=== PATIENT | female | born 1945 | race Caucasian/White ===

== ENCOUNTER → 2016-11-11 | Outpatient (CLI) | payer MEDICARE, BC ==
[2016-11-11 09:58] LABS: Non-African American GFR(MDRD) >60 (>60 ml/min/1.73 sqM)
--- NOTE | 2016-11-11 13:15 | MR ---
MR pancreas with and without contrast history: Abnormal pancreas MRI Multiplanar multisequence and postcontrast images obtained of the pancreas following 15 cc MultiHance IV Correlation to prior pancreas MRI 11/15/2015, previous CT abdomen 06/19/2015 The large cystic foci within the liver are stable. Loss of intensity within the liver on out of phase imaging compatible with underlying fatty infiltration. Patient is post cholecystectomy. Extrarenal p kemal within the right kidney is again noted, kidneys are stable in appearance. Adrenal glands are no rmal. Spleen shows a stable appearance. Common bile duct is dilated as is the central hepatic biliary system and this could be due to postcho lecystectomy change. 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 This cysts are small, the largest measures approximately 13 to 14 mm at the level of the body po steriorly shows a cluster of grapes appearance, at the uncinate process, there is a cystic focus arsalan uring 16-17 mm which may grow slightly in the interval on T2-weighted images although there are diffe rences in technique. Pancreatic duct only measures approximately 3 to 4 mm. The pancreas does appear somewhat atrophic. No evident adenopathy. No abnormal enhancement following contrast administration. There is a scoliosis. Degenerative disc changes in the visualized spine. 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 There may be minimal interval change as described. Differential includes chronic pancreatitis.
== END | disposition home or self-care (01) ==
LOC: RADMRIMAIN 09:31
PROVIDERS: ATTEND Surgery
DX: E11.9 Type 2 diabetes mellitus without complications (principal); Z85.07 Personal history of malignant neoplasm of pancreas
CPT/HCPCS: 82565; 74183; 36415; A9577

== ENCOUNTER → 2017-02-16 | Outpatient (CLI) | payer MEDICARE, BC ==
--- NOTE | 2017-02-18 09:40 | MM ---
Reason for exam: screening (asymptomatic). Last mammogram was performed 1 year ago. History: Patient is postmenopausal and history of other cancer. Family history of breast cancer in sister at age 60 and breast cancer in aunt at age 60. Took estrogen for 20 years. Physical Findings: A clinical breast exam by your physician is recommended on an annual basis and results should be correlated with mammographic findings. MG 3D Screening Mammo W/Cad Bilateral CC and MLO view(s) were taken. Prior study comparison: February 16, 2016, bilateral MG 3d screening mammo w/cad. February 11, 2015, bilateral MG screening mammo w CAD. The breast tissue is heterogeneously dense. This may lower the sensitivity of mammography. No significant changes when compared with prior studies. ASSESSMENT: Negative, BI-RAD 1 RECOMMENDATION: Routine screening mammogram of both breasts in 1 year.
== END | disposition home or self-care (01) ==
LOC: RADMAMWWP 16:49
PROVIDERS: ATTEND Family Medicine
DX: Z12.31 Encounter for screening mammogram for malignant neoplasm of breast (principal)
CPT/HCPCS: 77063; G0202

== ENCOUNTER 2017-10-25 08:10 | Day surgery (SDC) | payer MEDICARE, BC ==
[2017-10-19 16:07] VITALS: BMI 25.8
[~2017-10-25 08:10] MED LIST: LACTATED RINGERS 1,000 ML IV SCH
[2017-10-25 08:35] VITALS: RESP 16; TEMP 98.4
[2017-10-25 08:46] LABS: Glucose,Whole Blood 115 mg/dL (75-99)
[2017-10-25] MEDS ORDERED: PROPOFOL 10 MG/ML 20 ML VIAL IV ONE (08:57)
[2017-10-25] MEDS ORDERED: LIDOCAINE 1% INJ 10MG/ML (20 ML MDV) ONE (08:57)
--- NOTE | 2017-10-25 09:38 | P.PCN ---
Date of Procedure: 10/25/17 Procedure(s) Performed: PREOPERATIVE DIAGNOSIS: Epigastric pain, screening POSTOPERATIVE DIAGNOSIS: Small gastric nodule, gastric polyps, mild gastritis, small hiatal hernia, diverticulosis PROCEDURE: 1. EGD with biopsy 2. Colonoscopy ANESTHESIA: MAC SURGEON: Christos Izquierdo M.D. SPECIMENS: Antrum, gastric polyp ENDOSCOPIC PROCEDURE: The patient was on the endoscopy table in the left decubitus position. The Olympus gastroscope was inserted into the oropharynx and passed under direct visualization to the region of the third portion of the duodenum. From that point the scope was slowly withdrawn inspecting all surfaces carefully. There were no neoplastic inflammatory or polypoid lesions throughout the duodenum. The pylorus was widely patent. The stomach was carefully inspected. There was a small nodule in the antrum that was present previously. This appeared the same size or possibly even smaller. This has been biopsied on numerous occasions and a biopsy today was not felt to be required. I did take a biopsy of the antrum. Patient had a few small gastric polyps one of which was removed. These were all less than 8 mm in size. Retroflexion revealed a small to medium sized hiatal hernia with the GE junction present 2 cm above the diaphragmatic hiatus. The esophagus was then carefully examined. There were no neoplastic inflammatory or polypoid lesions throughout the visualized esophagus. The patient was kept on the endoscopy table in the left decubitus position. The Olympus colonoscope was inserted into the anus and passed under direct visualization to the base of the cecum. The appendiceal orifice was visualized. From that point the scope was slowly withdrawn inspecting all surfaces carefully. There were no neoplastic inflammatory or polypoid lesions throughout the cecum, ascending, transverse, descending, sigmoid and rectum. There was tortuosity and diverticulosis noted throughout the sigmoid colon. Digital rectal examination was normal. The patient was taken to the recovery room in stable condition per anesthesia guidelines. RECOMMENDATIONS: Await biopsy results. Continue antiacids.
[2017-10-25 09:53] VITALS: BP 135/51; PULSE 70
== END 2017-10-25 10:33 | disposition home or self-care (01) ==
LOC: ORWHC2ENDO 08:10
PROVIDERS: ATTEND Surgery
DX: Z12.11 Encounter for screening for malignant neoplasm of colon (principal); K29.50 Unspecified chronic gastritis without bleeding; K31.7 Polyp of stomach and duodenum; K31.89 Other diseases of stomach and duodenum; K44.9 Diaphragmatic hernia without obstruction or gangrene; K57.30 Diverticulosis of large intestine without perforation or abscess without bleeding; Q43.8 Other specified congenital malformations of intestine; K86.2 Cyst of pancreas; K21.9 Gastro-esophageal reflux disease without esophagitis; E11.9 Type 2 diabetes mellitus without complications; E78.2 Mixed hyperlipidemia; F32.9 Major depressive disorder, single episode, unspecified; M81.0 Age-related osteoporosis without current pathological fracture; I10 Essential (primary) hypertension; M19.90 Unspecified osteoarthritis, unspecified site; Z79.84 Long term (current) use of oral hypoglycemic drugs; Z79.82 Long term (current) use of aspirin; Z79.899 Other long term (current) drug therapy; Z85.828 Personal history of other malignant neoplasm of skin; Z87.442 Personal history of urinary calculi; Z88.5 Allergy status to narcotic agent; Z88.6 Allergy status to analgesic agent
CPT/HCPCS: 88305; 43239; J2001; J2704; G0121; 45378

== ENCOUNTER → 2017-11-14 | Outpatient (CLI) | payer MEDICARE, BC ==
--- NOTE | 2017-11-14 13:57 | MR ---
MR pancreas with and without contrast HISTORY: Pancreatic cysts, previous abnormal MRI pancreas TECHNIQUE: multiplanar multisequence and postcontrast images obtained through the abdomen following 7 cc Gadavist IV. Exam is correlated to prior MR pancreas 11/11/2016 Cystic foci within the liver are stable. Multiple cystic foci within the pancreas are also showing si milar appearance. Within the body the pancreas there is a focus which may has grown slightly, approxi mately 1 to 2 mm in greatest dimension although there are differences in technique. No evident nodula rity or enhancement. There is no evident adenopathy. No other significant interval change. Retroaortic left renal vein is noted incidentally. Extrarenal pelves noted right greater than left wi thin the kidneys. Patient is post cholecystectomy. Possible underlying hepatic steatosis. Adrenal gla nds and spleen are stable. Aorta is not aneurysmal. No retroperitoneal adenopathy. There is an underl samantha scoliosis. No evident pleural effusion. IMPRESSION: Findings are similar to prior exam as described.
== END | disposition home or self-care (01) ==
LOC: RADMRIMAIN 11:13
PROVIDERS: ATTEND Surgery
DX: K86.2 Cyst of pancreas (principal)
CPT/HCPCS: 82565; 74183; A9581

== ENCOUNTER → 2018-02-17 | Outpatient (CLI) | payer MEDICARE, BC ==
--- NOTE | 2018-02-20 09:16 | MM ---
Reason for exam: screening (asymptomatic). Last mammogram was performed 1 year ago. History: Patient is postmenopausal and history of other cancer. Family history of breast cancer in sister at age 60 and breast cancer in aunt at age 60. Took estrogen for 20 years. Physical Findings: A clinical breast exam by your physician is recommended on an annual basis and results should be correlated with mammographic findings. MG 3D Screening Mammo W/Cad Bilateral CC and MLO view(s) were taken. Prior study comparison: February 16, 2017, bilateral MG 3d screening mammo w/cad. February 16, 2016, bilateral MG 3d screening mammo w/cad. The breast tissue is heterogeneously dense. This may lower the sensitivity of mammography. There is no discrete abnormality. No significant changes when compared with prior studies. ASSESSMENT: Negative, BI-RAD 1 RECOMMENDATION: Routine screening mammogram of both breasts in 1 year.
== END | disposition home or self-care (01) ==
LOC: RADMAMWWP 11:10
PROVIDERS: ATTEND Family Medicine
DX: Z12.31 Encounter for screening mammogram for malignant neoplasm of breast (principal)
CPT/HCPCS: 77063; 77067

== ENCOUNTER 2018-09-22 08:13 | Emergency (ER) | payer MEDICARE, BC ==
[2018-09-22] MEDS ORDERED: diphenhydrAMINE 50 MG/ML 1 ML VIAL IVP STA (08:32)
[2018-09-22] MEDS ORDERED: SODIUM CHLORIDE 0.9% 1,000 ML IV STA (08:32)
[2018-09-22] MEDS ORDERED: MECLIZINE 12.5 MG TAB PO STA (08:32)
--- NOTE | 2018-09-22 08:37 | ED ---
Dizziness HPI - General Chief Complaint: Dizziness Stated Complaint: Vomiting Time Seen by Provider: 09/22/18 08:15 Source: patient, EMS, RN notes reviewed, old records reviewed Mode of arrival: EMS Limitations: no limitations - History of Present Illness Initial Comments: Patient is a 73-year-old female presents emergency department today for evaluation with complaints of dizziness. She reports that she had 3 episodes of positional dizziness this morning creating some nausea. Patient reports that she bent down to pick something up and stood up and started to have some diaphoresis and had an episode of vomiting. She does complain of some left u pper quadrant abdominal discomfort. Patient relates that over the past month she's been having issues with her gait and walking off balance. Patient states that she had recent surgery due to macular degeneration MRI and had that repaired. She states that her visual deficits have improved since her surgery. She initially thought that her gait disturbance and depth perception was just related to her recent eye surgery. - Related Data Home Medications Medication Instructions Recorded Confirmed Aspirin [Adult Low Dose Aspirin EC] 81 mg PO DAILY 10/19/17 09/22/18 Atenolol 25 mg PO DAILY 10/19/17 09/22/18 Atorvastatin [Lipitor] 20 mg PO HS 10/19/17 09/22/18 Cranberry Fruit Extract [Cranberry] 200 mg PO HS 10/19/17 09/22/18 Donepezil [Aricept] 10 mg PO DAILY 10/19/17 09/22/18 Flaxseed Oil [Cunningham-3 Flaxseed Oil] 1,000 mg PO DAILY 10/19/17 09/22/18 Glucosamine-Chondr 500-400Mg 1 tab PO DAILY 10/19/17 09/22/18 Losartan [Cozaar] 25 mg PO DAILY 10/19/17 09/22/18 Pantoprazole [Protonix] 40 mg PO DAILY 10/19/17 09/22/18 Raloxifene [Evista] 60 mg PO DAILY 10/19/17 09/22/18 Turmeric Root Extract [Turmeric] 1,053 mg PO HS 10/19/17 09/22/18 Vitamin E Acetate [Vitamin E] 400 unit PO HS 10/19/17 09/22/18 metFORMIN HCL [Glucophage] 500 mg PO BID 10/19/17 09/22/18 Alive 1 tab PO DAILY 09/22/18 09/22/18 Estradiol Cream [Estrace Cream 1 gm VAGINAL HS PRN 09/22/18 09/22/18 0.01%] L.acidoph,Paracasei, B.lactis 1 cap PO HS 09/22/18 09/22/18 [Probiotic] Previous Rx's Medication Instructions Recorded Meclizine [Antivert] 25 mg PO TID #20 tab 09/22/18 Ondansetron Odt [Zofran Odt] 4 mg PO Q8HR PRN #20 tab 09/22/18 methylPREDNISolone Dose Pack 4 mg PO DIRECTED #21 package 09/22/18 [Medrol Dose Pack] Allergies Allergy/AdvReac Type Severity Reaction Status Date / Time ibuprofen [From Motrin] AdvReac Rash/Hives Verified 09/22/18 08:59 morphine AdvReac Nausea Verified 09/22/18 08:59 Review of Systems ROS Statement: Those systems with pertinent positive or pertinent negative responses have been documented in the HPI. ROS Other: All systems not noted in ROS Statement are negative. Past Medical History Past Medical History: Cancer, Diabetes Mellitus, Hyperlipidemia, Hypertension, Osteoarthritis (OA) Additional Past Medical History / Comment(s): Skin CA; eye lid tumor/CA; "stomach nodules" ; had arrythmia/ stopped Dig. 8 months ago; History of Any Multi-Drug Resistant Organisms: None Reported Past Surgical History: Cholecystectomy, Hysterectomy, Orthopedic Surgery, Tonsillectomy Additional Past Surgical History / Comment(s): foot surg.; R ganglion cyst; R carpal tunnel; eye lid tumor removed; skin Ca removed neck Past Anesthesia/Blood Transfusion Reactions: Postoperative Nausea & Vomiting (PONV) Past Psychological History: No Psychological Hx Reported Smoking Status: Never smoker Past Alcohol Use History: None Reported Past Drug Use History: None Reported - Past Family History Father Family Medical History: Cancer Sister(s) Family Medical History: Cancer General Exam - General Exam Comments Initial Comments: 33-year-old [employer]. Alert and oriented. No significant distress. Limitations: no limitations Head exam: Present: atraumatic, normocephalic, normal inspection Eye exam: Present: normal appearance, PERRL, EOMI, nystagmus (Patient has nystagmus on left lateral gaze.). Absent: scleral icterus, conjunctival injection, periorbital swelling ENT exam: Present: normal exam, mucous membranes moist Neck exam: Present: normal inspection. Absent: tenderness, meningismus, lymphadenopathy Respiratory exam: Present: normal lung sounds bilaterally. Absent: respiratory distress, wheezes, rales, rhonchi, stridor Cardiovascular Exam: Present: regular rate, normal rhythm, normal heart sounds. Absent: systolic murmur, diastolic murmur, rubs, gallop, clicks GI/Abdominal exam: Present: soft, normal bowel sounds. Absent: distended, tenderness, guarding, rebound, rigid Extremities exam: Present: normal inspection, full ROM, normal capillary refill. Absent: tenderness, pedal edema, joint swelling, calf tenderness Back exam: Present: normal inspection Neurological exam: Present: alert, oriented X3, CN II-XII intact Psychiatric exam: Present: normal affect, normal mood Skin exam: Present: warm, dry, intact, normal color. Absent: rash Course Vital Signs 09/22/18 09/22/18 08:24 10:30 Pulse Rate 83 Pulse Rate [ 80 Pulse Oximetery ] Respiratory 17 18 Rate Blood Pressure 175/74 Blood Pressure 122/61 [Right Arm Sitting] Blood Pressure 131/57 [Right Arm Standing] Blood Pressure 133/60 [Right Arm Supine] O2 Sat by Pulse 100 100 Oximetry - Reevaluation(s) Reevaluation #1: 09/22/18 10:53 Patient was reevaluated this time, and states that her symptoms are worse with head movements and feels like the room spinning vertigo. On second reevaluation after Antivert she states that she's feeling better and likely discharge home. Medical Decision Making - Medical Decision Making 73-year-old female since returned today with dizziness with changing position of her head. She states that she's been having some gait disturbances feeling arms off balance. She states that symptoms have been going in her family said she had an eye surgery for macular degeneration one month ago. At this time Patient has evidence of nystagmus on exam. No other neurological findings. She denies any significant pain. IV was established Patient is given Antivert and Benadryl. EKG is normal. Troponin and blood work is unremarkable. CT of her brain shows evidence of chronic changes but nothing acute. Patient informed of these results. I discussed on reevaluation seems consistent with vertigo Patient agrees with this tenderness she's had this before. Patient ambulated without difficulty. Finger to nose intact. Patient will be discharged at this time with meclizine Medrol Dosepak and Zofran. I discussed appropriate follow- up with primary care doctor and ENT specialist. All questions answered. - Lab Data Result diagrams: 09/22/18 08:53 09/22/18 08:53 Lab Results 09/22/18 09/22/18 09/22/18 Range/Units 08:53 08:53 08:53 WBC 4.5 (3.8-10.6) k/uL RBC 4.43 (3.80-5.40) m/uL Hgb 12.8 (11.4-16.0) gm/dL Hct 39.6 (34.0-46.0) % MCV 89.4 (80.0-100.0) fL MCH 29.0 (25.0-35.0) pg MCHC 32.4 (31.0-37.0) g/dL RDW 14.4 (11.5-15.5) % Plt Count 159 (150-450) k/uL Neutrophils % 56 % Lymphocytes % 28 % Monocytes % 8 % Eosinophils % 3 % Basophils % 1 % Neutrophils # 2.6 (1.3-7.7) k/uL Lymphocytes # 1.3 (1.0-4.8) k/uL Monocytes # 0.4 (0-1.0) k/uL Eosinophils # 0.2 (0-0.7) k/uL Basophils # 0.0 (0-0.2) k/uL PT 11.3 (9.0-12.0) sec INR 1.1 (<1.2) Sodium 140 (137-145) mmol/L Potassium 4.2 (3.5-5.1) mmol/L Chloride 107 (98-107) mmol/L Carbon Dioxide 25 (22-30) mmol/L Anion Gap 8 mmol/L BUN 17 (7-17) mg/dL Creatinine 0.47 L (0.52-1.04) mg/dL Est GFR (CKD-EPI)AfAm >90 (>60 ml/min/1.73 sqM) Est GFR (CKD-EPI)NonAf >90 (>60 ml/min/1.73 sqM) Glucose 132 H (74-99) mg/dL Calcium 9.2 (8.4-10.2) mg/dL Total Bilirubin 0.8 (0.2-1.3) mg/dL AST 31 (14-36) U/L ALT 29 (9-52) U/L Alkaline Phosphatase 50 (38-126) U/L Troponin I (0.000-0.034) ng/mL Total Protein 6.9 (6.3-8.2) g/dL Albumin 4.1 (3.5-5.0) g/dL 09/22/18 Range/Units 08:53 WBC (3.8-10.6) k/uL RBC (3.80-5.40) m/uL Hgb (11.4-16.0) gm/dL Hct (34.0-46.0) % MCV (80.0-100.0) fL MCH (25.0-35.0) pg MCHC (31.0-37.0) g/dL RDW (11.5-15.5) % Plt Count (150-450) k/uL Neutrophils % % Lymphocytes % % Monocytes % % Eosinophils % % Basophils % % Neutrophils # (1.3-7.7) k/uL Lymphocytes # (1.0-4.8) k/uL Monocytes # (0-1.0) k/uL Eosinophils # (0-0.7) k/uL Basophils # (0-0.2) k/uL PT (9.0-12.0) sec INR (<1.2) Sodium (137-145) mmol/L Potassium (3.5-5.1) mmol/L Chloride (98-107) mmol/L Carbon Dioxide (22-30) mmol/L Anion Gap mmol/L BUN (7-17) mg/dL Creatinine (0.52-1.04) mg/dL Est GFR (CKD-EPI)AfAm (>60 ml/min/1.73 sqM) Est GFR (CKD-EPI)NonAf (>60 ml/min/1.73 sqM) Glucose (74-99) mg/dL Calcium (8.4-10.2) mg/dL Total Bilirubin (0.2-1.3) mg/dL AST (14-36) U/L ALT (9-52) U/L Alkaline Phosphatase (38-126) U/L Troponin I <0.012 (0.000-0.034) ng/mL Total Protein (6.3-8.2) g/dL Albumin (3.5-5.0) g/dL 09/22/18 09:11 EKG performed at 848 shows no signs of abnormal EKG. Ventricular rate of 72 bpm. MS interval is 156 ms. QS ration 82 ms. QT QTc is 428/460 ms. - Radiology Data Radiology results: report reviewed Degenerative nonspecific white matter changes. No acute hemorrhage or mass effect. There is concern for acute ischemia correlate with MRI as clinically warranted. Chest x-rays negative for any acute process. Disposition Clinical Impression: Vertigo Disposition: HOME SELF-CARE Condition: Good Instructions (If sedation given, give patient instructions): Vertigo (ED) Additional Instructions: Follow-up with primary care physician and ENT. Return to emergency department if any alarming signs or symptoms occur. Prescriptions: Meclizine [Antivert] 25 mg PO TID #20 tab methylPREDNISolone Dose Pack [Medrol Dose Pack] 4 mg PO DIRECTED #21 package Ondansetron Odt [Zofran Odt] 4 mg PO Q8HR PRN #20 tab PRN Reason: Nausea Is patient prescribed a controlled substance at d/c from ED?: No Referrals: Roosevelt Meadows DO [Primary Care Provider] - 1-2 days Nahum Alan MD [STAFF PHYSICIAN] - 1-2 days Time of Disposition: 10:55
[2018-09-22 09:09] LABS: Basophils % (A) 1 %; Eosinophils # (A) 0.2 k/uL (0-0.7); Eosinophils % (A) 3 %; HCT 39.6 % (34.0-46.0); HGB 12.8 gm/dL (11.4-16.0); INR 1.1 (<1.2); Lymphocytes # (A) 1.3 k/uL (1.0-4.8); Lymphocytes % (A) 28 %; MCHC 32.4 g/dL (31.0-37.0); MCV 89.4 fL (80.0-100.0); Mean Platelet Volume 8.3; Monocytes # (A) 0.4 k/uL (0-1.0); Monocytes % (A) 8 %; Neutrophils # (A) 2.6 k/uL (1.3-7.7); Neutrophils % (A) 56 %; Platelet Count 159 k/uL (150-450); Prothrombin Time 11.3 sec (9.0-12.0); RBC 4.43 m/uL (3.80-5.40); RDW 14.4 % (11.5-15.5); WBC 4.5 k/uL (3.8-10.6)
[2018-09-22 09:20] LABS: ALT 29 U/L (9-52); AST 31 U/L (14-36); Albumin 4.1 g/dL (3.5-5.0); Alkaline Phosphatase 50 U/L (38-126); Anion Gap 8 mmol/L; Blood Urea Nitrogen 17 mg/dL (7-17); Calcium 9.2 mg/dL (8.4-10.2); Carbon Dioxide 25 mmol/L (22-30); Chloride 107 mmol/L (98-107); Glucose 132 mg/dL (74-99); Potassium 4.2 mmol/L (3.5-5.1); Sodium 140 mmol/L (137-145); Total Bilirubin 0.8 mg/dL (0.2-1.3); Total Protein 6.9 g/dL (6.3-8.2)
--- NOTE | 2018-09-22 09:26 | CT ---
EXAMINATION TYPE: CT brain wo con DATE OF EXAM: 09/22/2018 COMPARISON: Dizziness HISTORY: Headache, nausea, dizziness. CT DLP: 1091.4 mGycm Automated exposure control for dose reduction was used. FINDINGS: There is generalized degenerative change with a greater frontal lobe component. There are areas of lo w attenuation within the white matter bilaterally which are nonspecific. No midline shift or mass eff ect. No acute intracranial hemorrhage. Calvarium intact. Intracranial atherosclerotic changes noted. Changes of chronic sinusitis. IMPRESSION: DEGENERATIVE AND NONSPECIFIC WHITE MATTER CHANGES. NO ACUTE HEMORRHAGE OR MASS EFFECT. IF THERE IS CO NCERN FOR ACUTE ISCHEMIA CORRELATE WITH MRI CLINICALLY WARRANTED.
--- NOTE | 2018-09-22 09:34 | XR ---
EXAMINATION TYPE: XR chest 2V DATE OF EXAM: 09/22/2018 COMPARISON: None INDICATION: Dizziness diaphoresis TECHNIQUE: Frontal and lateral views of the chest are obtained. FINDINGS: The heart size is normal. The pulmonary vasculature is normal. The lungs are clear. IMPRESSION: 1. No acute pulmonary process.
[2018-09-22 11:07] LABS: Amorphous Sediment,Urine Few /hpf; Appearance,Urine Cloudy (Clear); Bilirubin,Urine Negative (Negative); Blood,Urine Negative (Negative); Color,Urine Yellow; Glucose,Urine (UA) Negative (Negative); Ketones,Urine Trace (Negative); Leukocyte Esterase,Urine Negative (Negative); Mucus,Urine Rare /hpf; Nitrite,Urine Negative (Negative); PH, Urine 7.5 (5.0-8.0); Protein,Urine Negative (Negative); Specific Gravity,Urine 1.018 (1.001-1.035); Squamous Epithelial Cell,Urine <1 /hpf (0-4); Urobilinogen,Urine <2.0 mg/dL (<2.0); WBC,Urine 1 /hpf (0-5)
[2018-09-22 11:08] VITALS: BP 127/46; PULSE 76; RESP 16; TEMP 98.1
== END 2018-09-22 11:08 | disposition home or self-care (01) ==
LOC: EC 08:13
DX: H55.00 Unspecified nystagmus (principal); R90.82 White matter disease, unspecified; E11.9 Type 2 diabetes mellitus without complications; E78.5 Hyperlipidemia, unspecified; I10 Essential (primary) hypertension; M19.90 Unspecified osteoarthritis, unspecified site; Z88.5 Allergy status to narcotic agent; Z88.6 Allergy status to analgesic agent; Z79.1 Long term (current) use of non-steroidal anti-inflammatories (NSAID); Z79.82 Long term (current) use of aspirin; Z79.84 Long term (current) use of oral hypoglycemic drugs; Z79.899 Other long term (current) drug therapy; Z85.840 Personal history of malignant neoplasm of eye; Z85.828 Personal history of other malignant neoplasm of skin; Z86.69 Personal history of other diseases of the nervous system and sense organs; Z98.890 Other specified postprocedural states; Z90.49 Acquired absence of other specified parts of digestive tract
CPT/HCPCS: 36415; 93005; 80053; 84484; 85025; 85610; 81001; 71046; 70450; 99285; 96374; 96361; J1200

== ENCOUNTER → 2019-02-21 | Outpatient (CLI) | payer MEDICARE, BC ==
--- NOTE | 2019-02-22 11:16 | MM ---
Reason for exam: screening (asymptomatic). Last mammogram was performed 1 year ago. History: Patient is postmenopausal and history of other cancer. Family history of breast cancer in sister at age 60 and breast cancer in aunt at age 60. Took estrogen for 20 years. Physical Findings: A clinical breast exam by your physician is recommended on an annual basis and results should be correlated with mammographic findings. MG 3D Screening Mammo W/Cad Bilateral CC and MLO view(s) were taken. Prior study comparison: February 17, 2018, bilateral MG 3d screening mammo w/cad. February 16, 2017, bilateral MG 3d screening mammo w/cad. The breast tissue is heterogeneously dense. This may lower the sensitivity of mammography. There is no discrete abnormality. No significant changes when compared with prior studies. ASSESSMENT: Negative, BI-RAD 1 RECOMMENDATION: Routine screening mammogram of both breasts in 1 year.
== END | disposition home or self-care (01) ==
LOC: RADMAMWWP 11:00
PROVIDERS: ATTEND Family Medicine
DX: Z12.31 Encounter for screening mammogram for malignant neoplasm of breast (principal)
CPT/HCPCS: 77063; 77067

== ENCOUNTER → 2019-11-01 | Outpatient (CLI) | payer MEDICARE, BC ==
--- NOTE | 2019-11-01 15:43 | MR ---
EXAMINATION TYPE: MR pancreas wo/w con DATE OF EXAM: 11/01/2019 COMPARISON: 11/14/2017 and 11/11/2016 HISTORY: 74-year-old female K86.2, Pancreatic cyst Technique: Multiplanar, multisequence images of the abdomen were obtained before and after administra tion of 7 mL intravenous Gadavist gadolinium contrast. FINDINGS: Left hepatic dome cyst measures 3.0 cm craniocaudal versus 2.4 cm on 11/14/2017. Near the gallbladder fossa, a cyst measures 2.6 cm versus 2.8 cm in 2018. Opposed phase T1-weighted sequences show signal drop of the hepatic parenchyma on out of phase compat ible with fatty infiltration. The bile duct measures 1.1 cm, unchanged. Portal venous system is patent. 7 mm cyst at the pancreatic tail unchanged. (Cysts measured primarily on coronal series 201). Cluster of cysts with aggregate dimension of 1.2 cm in the pancreatic body versus 1.0 cm on 11/14/2017 , not felt to have significantly changed. Cystic areas within the pancreatic head measuring up to 1.1 x 0.4 cm remain unchanged. The graft a 5 mm cyst at the distal pancreatic body, coronal series 201 image 15 not clearly seen previously. Additional scattered dilated side branch radicals throughout the pancreas. No discrete pancreatic mas s is identified. Gallbladder surgically absent. Extrarenal pelvis right kidney. Left kidney, spleen, and adrenal gland s within normal limits. Prominent but nonenlarged 6 mm portacaval lymph node.. No upper abdominal lymphadenopathy Mild stool burden. No ascites fluid. Levoconvex scoliosis of the lumbar spine. IMPRESSION: 1. Stable cysts within the pancreas. Largest cluster in the pancreatic body with aggregate dimension of 1.2 cm. Some of these seem to communicate with the main pancreatic duct. Sequela of prior pancreat itis is possible. Consider an additional 2 year follow-up. 2. Moderate hepatic steatosis.
== END | disposition home or self-care (01) ==
LOC: RADMRIMAIN 12:08
PROVIDERS: ATTEND Surgery
DX: K86.2 Cyst of pancreas (principal); K76.0 Fatty (change of) liver, not elsewhere classified
CPT/HCPCS: 74183; A9585

== ENCOUNTER → 2020-01-25 | Outpatient (CLI) | payer MEDICARE, BC ==
[2020-01-25 15:17] LABS: HCT 38.6 % (34.0-46.0); HGB 12.2 gm/dL (11.4-16.0); MCH 28.8 pg (25.0-35.0); MCHC 31.6 g/dL (31.0-37.0); MCV 91.2 fL (80.0-100.0); Mean Platelet Volume 8.2; Platelet Count 164 k/uL (150-450); RBC 4.24 m/uL (3.80-5.40); RDW 12.9 % (11.5-15.5); WBC 6.3 k/uL (3.8-10.6)
[2020-01-25 23:02] LABS: African American GFR (CKD) 97.5 (60.0-200.0); Anion Gap 8.4 mmol/L (4.00-12.00); Carbon Dioxide 26.6 mmol/L (21.6-31.8); Non-African American GFR(CKD) 84.2 (60.0-200.0); Potassium 4.4 mmol/L (3.5-5.5)
== END | disposition home or self-care (01) ==
LOC: LABWHC1 14:13
PROVIDERS: ATTEND Internal Medicine Interventional Cardiology
DX: Z01.818 Encounter for other preprocedural examination (principal); R07.89 Other chest pain
CPT/HCPCS: 36415; 80051; 82565; 84520; 85027

== ENCOUNTER → 2020-02-26 | Outpatient (CLI) | payer MEDICARE, BC ==
--- NOTE | 2020-02-28 11:55 | MM ---
Reason for exam: screening (asymptomatic). Last mammogram was performed 1 year ago. History: Patient is postmenopausal and history of other cancer. Family history of breast cancer in sister at age 60 and breast cancer in aunt at age 60. Took estrogen for 20 years. Physical Findings: A clinical breast exam by your physician is recommended on an annual basis and results should be correlated with mammographic findings. MG 3D Screening Mammo W/Cad Bilateral CC and MLO view(s) were taken. Prior study comparison: February 21, 2019, bilateral MG 3d screening mammo w/cad. February 17, 2018, bilateral MG 3d screening mammo w/cad. The breast tissue is heterogeneously dense. This may lower the sensitivity of mammography. No significant changes when compared with prior studies. ASSESSMENT: Benign, BI-RAD 2 RECOMMENDATION: Routine screening mammogram of both breasts in 1 year.
== END | disposition home or self-care (01) ==
LOC: RADMAMWWP 13:52
PROVIDERS: ATTEND Family Medicine
DX: Z12.31 Encounter for screening mammogram for malignant neoplasm of breast (principal); Z80.3 Family history of malignant neoplasm of breast
CPT/HCPCS: 77063; 77067

== ENCOUNTER → 2020-11-12 | Outpatient (CLI) | payer MEDICARE, BC ==
--- NOTE | 2020-11-12 14:53 | MR ---
EXAMINATION TYPE: MR knee LT wo con DATE OF EXAM: 11/12/2020 COMPARISON: None HISTORY: Lt knee pain, fall TECHNIQUE: Multiplanar, multisequence imaging of the left knee is performed without IV contrast. FINDINGS: MEDIAL MENISCUS: Anterior and posterior horns are intact without tear. LATERAL MENISCUS: Diminutive anterior horn lateral meniscus likely reflects chronic tear of meniscect ar change. Posterior horn is intact. CRUCIATE LIGAMENTS: The ACL is edematous and demonstrates partial tear with strain. The PCL is intact . COLLATERAL LIGAMENTS: The medial collateral ligament and lateral collateral ligament complex are inta ct and unremarkable. EXTENSOR MECHANISM: Visualized quadriceps and patellar tendons are intact. EFFUSION: No significant suprapatellar joint effusion. POPLITEAL CYST: No popliteal/chaparro cyst. TRICOMPARTMENT SPACES: Moderate narrowing patellofemoral joint space and medial tibiofemoral joint sp mirta. CARTILAGE: Intact BONE MARROW SIGNAL: No focal abnormal marrow signal is appreciated. OTHER: Subchondral cyst medial tibial plateau measures 8.6 mm IMPRESSION: 1. Strain and partial tear of the ACL. 2. Probable chronic tear anterior meniscectomy change anterior horn lateral meniscus. 3. Changes of osteoarthritis.
== END | disposition home or self-care (01) ==
LOC: RADMRIMAIN 13:07
PROVIDERS: ATTEND Orthopaedic Surgery
DX: S83.512A Sprain of anterior cruciate ligament of left knee, initial encounter (principal); M17.12 Unilateral primary osteoarthritis, left knee; W19.XXXA Unspecified fall, initial encounter

== ENCOUNTER → 2020-12-02 | Outpatient (CLI) | payer MEDICARE, BC ==
[2020-12-02 12:18] LABS: Basophils % (A) 1 %; Eosinophils # (A) 0.2 k/uL (0-0.7); Eosinophils % (A) 3 %; HCT 41.2 % (34.0-46.0); HGB 13.2 gm/dL (11.4-16.0); Lymphocytes # (A) 1.6 k/uL (1.0-4.8); Lymphocytes % (A) 28 %; MCHC 32.1 g/dL (31.0-37.0); MCV 93.4 fL (80.0-100.0); Mean Platelet Volume 8.9; Monocytes # (A) 0.4 k/uL (0-1.0); Monocytes % (A) 7 %; Neutrophils # (A) 3.2 k/uL (1.3-7.7); Neutrophils % (A) 58 %; Platelet Count 170 k/uL (150-450); RBC 4.41 m/uL (3.80-5.40); RDW 13.4 % (11.5-15.5); WBC 5.5 k/uL (3.8-10.6)
[2020-12-02 12:39] LABS: Potassium 4.5 mmol/L (3.5-5.1)
== END | disposition home or self-care (01) ==
LOC: LABPAT 11:20
PROVIDERS: ATTEND Orthopaedic Surgery
DX: Z01.818 Encounter for other preprocedural examination (principal); M23.92 Unspecified internal derangement of left knee
CPT/HCPCS: 36415; 80051; 85025; 93005

== ENCOUNTER → 2020-12-11 | Day surgery (SDC) | payer MEDICARE, BC ==
[2020-12-09 17:42] VITALS: BMI 25.0
[~2020-12-11] MED LIST changes: +BUPIVACAINE (PF) 0.25% 30 ML VIAL SQ ONE; +DEXAMETHASONE SOD PHOSPHATE 4 MG/ML 1 ML VIAL IV ONE; +HYDROmorphone 0.5 MG/0.5 ML SYRINGE IVP PRN; +KETOROLAC 15 MG/ML 1 ML VIAL ONE; +LIDOCAINE 1% INJ 10MG/ML (20 ML MDV) ONE; +MIDAZOLAM 2 MG/2 ML VIAL ONE; +ONDANSETRON 4 MG/2 ML VIAL IVP ONE; +PROPOFOL 10 MG/ML 20 ML VIAL IV ONE; +fentaNYL (PF) 50 MCG/ML 2 ML AMP ONE
--- NOTE | 2020-12-11 01:17 | HP ---
HISTORY AND PHYSICAL REASON FOR ADMISSION: Surgery scheduled 12/11/2020 HISTORY OF PRESENT ILLNESS: Julianna Herman is a 75-year-old patient seen with progressive left knee pain. We discussed options for treatment. She elected to proceed with arthroscopy. Consent was obtained. PAST MEDICAL HISTORY: Hypertension, hyperlipidemia, [id number]-[id number] diabetes, gastroesophageal reflux disease. PAST SURGICAL HISTORY: Cholecystectomy, foot surgery, hysterectomy, wrist surgery. MEDICATIONS: Aspirin, atorvastatin, losartan, pantoprazole and Tenormin. ALLERGIES: Noncontributory. SOCIAL HISTORY: She denies tobacco use. PHYSICAL EVALUATION OF THE LEFT KNEE: Range of motion zero to 130. Mild effusion. Tenderness medial joint line, tenderness lateral joint line. Positive medial Rafa's. Positive lateral Rafa's. Ligaments stable. Hip rotation without pain. Distal neurovascular exam intact. RADIOGRAPHS: Radiographs of the left knee revealed moderate osteoarthritic changes. MRI left knee revealed lateral meniscal tear. IMPRESSION: 1. Internal derangement of left knee with meniscal tear. 2. Hypertension. 3. Hyperlipidemia. 4. [id number] diabetes. PLAN: Left knee arthroscopy with partial meniscectomy and debridement. Surgery 12/11/2020. MMODL / IJN: [id number] /
[2020-12-11 10:54] LABS: Glucose,Whole Blood 117 mg/dL (75-99)
--- NOTE | 2020-12-11 12:12 | P.OP ---
Date of Procedure: 12/11/20 Preoperative Diagnosis: Internal derangement left knee Postoperative Diagnosis: 1. Tear lateral meniscus left knee 2. 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 Reactive synovitis medial, lateral and suprapatellar compartments left knee Procedure(s) Performed: 1. Arthroscopic partial lateral meniscectomy left knee 2. Arthroscopic chondroplasty lateral femoral condyle left knee 3. Arthroscopic partial synovectomy medial, lateral and suprapatellar compartments left knee Anesthesia: GETA, local Surgeon: Talat Luis Estimated Blood Loss (ml): 5 Pathology: none sent Condition: stable Disposition: PACU Indications for Procedure: 75-year-old patient seen with progressive left knee pain. After treatment options were discussed, she elected to proceed with arthroscopy. Operative Findings: see description of procedure Description of Procedure: Patient was taken to the operative suite. Patient underwent a general anesthetic by the department of anesthesia. Patient was given preoperative an tibiotics. The left lower extremity was placed in a well-padded arthroscopic leg gates. The left leg was prepped and draped in the normal sterile orthopedic fashion. A lateral parapatellar and suprapatellar incision was made. Trochars were inserted. Arthroscopy was initiated. Suprapatellar pouch revealed diffuse thick reactive synovitis. The patellofemoral joint appeared to articulate congruently. There with grade 3/4, a shuttle the patella and grade 4, changes of the femoral sulcus with an area of exposed bone present. The scope was guided into the medial gutter. No loose bodies or plica were identified. The scope was then guided into the medial compartment. A medial parapatellar incision was made. Trocar inserted followed by probe. The medial meniscus was probed and found to be stable. There was some mild superficial fraying. There were grade 2 chondromalacia changes with no osteochondral tears involving the medial compartment. There was thick reactive synovitis ant eriorly. I introduced a motorized shaver and performed a partial synovectomy. Shaver was removed. There was good decompression of the synovitis. Scope and probe were then guided into the intercondylar notch. Cruciates were identified, probed and found to be stable. The scope and probe were then guided into lateral compartment. There was a complex tear involving the anterior horn and midbody lateral meniscus which extended into the posterior horn. There were grade 3/4 chondromalacia changes of the femoral condyle with some osteochondral flap tears present. There was thick reactive synovitis anteriorly. I performed a partial lateral meniscectomy getting down to stable meniscal tissue. I performed a chondroplasty of the lateral femoral condyle getting down to stable osteochondral tissue. I performed a partial synovectomy decompressing the thick reactive synovitis. Shaver was removed. The residual osteochondral surface was stable. The residual meniscus was stable. There was good decompression of synovitis. The scope was in guided back into the suprapatellar compartment. I introduced a motorized shaver into the suprapatellar compartment. I debrided some piecemeal fragments of meniscus I encountered. I performed a partial synovectomy. Shaver was removed. There was good decompression of the synovitis. Instruments were now removed from the joint. The joint was infiltrated with .25% Marcaine. Steri-Strips were applied to the portal sites. Sterile dressings were applied. The patient was placed into a MADDY hose. No tourniquet was utilized. The patient was awakened, transferred to a bed and taken to recovery stable satisfactory condition.
[2020-12-11 12:13] VITALS: TEMP 97
[2020-12-11 12:19] LABS: Glucose,Whole Blood 111 mg/dL (75-99)
[2020-12-11 13:11] VITALS: RESP 20
[2020-12-11 14:05] VITALS: BP 129/61; PULSE 64
== END | disposition home or self-care (01) ==
LOC: OR 10:22
PROVIDERS: ATTEND Orthopaedic Surgery
DX: S83.282A Other tear of lateral meniscus, current injury, left knee, initial encounter (principal); I10 Essential (primary) hypertension; E78.5 Hyperlipidemia, unspecified; E11.9 Type 2 diabetes mellitus without complications; K21.9 Gastro-esophageal reflux disease without esophagitis; Z87.442 Personal history of urinary calculi
CPT/HCPCS: 29881; J2250; J1100; J0690; J2405; J2001; J3010; J1885; J2704

== ENCOUNTER → 2021-10-14 | Outpatient (CLI) | payer MEDICARE, BC ==
--- NOTE | 2021-10-16 07:45 | MM ---
Reason for Exam: Screening (asymptomatic). Last mammogram was performed 1 year(s) and 8 month(s) ago. Patient History: Menarche at age 12. First Full-Term at age 19. Left ovary removed at age 37. Right ovary removed at age 37. Hysterectomy at age 37. Postmenopausal. Other cancer. Patient used Estrogen for 20 years. Maternal aunt had breast cancer, age 60. Sister had breast cancer, age 60. Risk Values: Ayesha 5 year model risk: 3.3%. NCI Lifetime model risk: 6.3%. Prior Study Comparison: 02/17/2018 Bilateral Screening Mammogram, [facility]. 02/21/2019 Bilateral Screening Mammogram, [facility]. 02/26/2020 Bilateral Screening Mammogram, [facility]. Tissue Density: The breast tissue is heterogeneously dense. This may lower the sensitivity of mammography. Findings: Analyzed By CAD. There is no suspicious group of microcalcifications or new suspicious mass in either breast. Overall Assessment: Negative, BI-RAD 1 Management: Screening Mammogram of both breasts in 1 year. A clinical breast exam by your physician is recommended on an annual basis and results should be correlated with mammographic findings. Electronically signed and approved by: Kee Nolan M.D. Radiologis
== END | disposition home or self-care (01) ==
LOC: RADMAMWWP 16:01
PROVIDERS: ATTEND Family Medicine
DX: Z12.31 Encounter for screening mammogram for malignant neoplasm of breast (principal); Z80.3 Family history of malignant neoplasm of breast; Z78.0 Asymptomatic menopausal state
CPT/HCPCS: 77063; 77067

== ENCOUNTER 2021-10-31 17:59 | Emergency (ER) | payer MEDICARE, BC ==
[2021-10-31 19:08] VITALS: TEMP 98
--- NOTE | 2021-10-31 19:54 | XR ---
EXAMINATION TYPE: XR wrist complete RT DATE OF EXAM: 10/31/2021 COMPARISON: NONE HISTORY: Pain TECHNIQUE: 4 views FINDINGS: Carpal bones appear intact. Radiocarpal joint is anatomic. There is nondisplaced chip fract ure of the base of the fourth metacarpal. No dislocation. IMPRESSION: Acute nondisplaced fracture of the base of the fourth metacarpal.
--- NOTE | 2021-10-31 19:55 | XR ---
EXAMINATION TYPE: XR shoulder complete RT DATE OF EXAM: 10/31/2021 COMPARISON: NONE HISTORY: Pain TECHNIQUE: 3 views FINDINGS: There is no evidence of fracture nor dislocation. Glenohumeral joint is intact. AC joint is intact. IMPRESSION: Negative right shoulder exam
--- NOTE | 2021-10-31 19:57 | XR ---
EXAMINATION TYPE: XR hand complete RT DATE OF EXAM: 10/31/2021 COMPARISON: NONE HISTORY: Pain TECHNIQUE: 3 views FINDINGS: Fingers appear intact. There is minor spurring at the DIP joints. There is intra-articular chip fracture of the base of the fourth metacarpal. There is also probably intra-articular impacted f racture of the base of the fifth metacarpal. No dislocation. Carpal bones are intact. IMPRESSION: Intra-articular fractures of the base of the fourth and fifth metacarpals.
[2021-10-31] MEDS ORDERED: HYDROcodone/APAP 5-325MG 1 EACH TAB PO STA (20:31)
[2021-10-31] MEDS ORDERED: LIDOCAINE 1%-EPI 1:100,000 20 ML VIAL SUBMUCOSAL ONE (20:31)
--- NOTE | 2021-10-31 20:56 | CT ---
EXAMINATION TYPE: CT brain wo con DATE OF EXAM: 10/31/2021 COMPARISON: 09/22/2018 HISTORY: fall. lacerations to upper lip and nose. no contrast. prior brain in pacs. CT DLP: combined DLP 739.3 mGycm Automated exposure control for dose reduction was used. There is mild cerebral atrophy. There is no mass effect normal Shift. There is some white matter hypodensity right posterior parietal lobe measuring 3 cm. The danyelle rium is intact. No evidence of intracranial hemorrhage. IMPRESSION: Chronic small vessel ischemia. No acute intracranial abnormality. No change
--- NOTE | 2021-10-31 21:00 | CT ---
EXAMINATION TYPE: CT facial bones wo con DATE OF EXAM: 10/31/2021 COMPARISON: None HISTORY: fall. lacerations to upper lip and nose. no contrast. prior brain in pacs. CT DLP: combined DLP 739.3 mGycm Automated exposure control for dose reduction was used. Images obtained from the bottom of the mandible to the top of the frontal sinuses with no contrast The mandibular ring is intact. Temporomandibular joints are intact zygomatic arches appear normal. Or bital margins are intact. Nasal bone is intact. The maxilla is intact. No evidence of orbital blowout fracture. No evidence of retro-orbital mass. IMPRESSION: Negative CT scan of the facial bones.
[2021-10-31 21:31] VITALS: RESP 20
[2021-10-31] MEDS ORDERED: ACET/COD 300 MG/30 MG STARTER PACK 6 TAB BTL PO STA (21:58)
[2021-10-31] MEDS ORDERED: DIPH,PERTUS(ACELL)TETVAC-LF 0.5 ML VIAL IM ONE (21:59)
--- NOTE | 2021-10-31 22:04 | ED ---
Fall HPI - General Chief Complaint: Fall Stated Complaint: Fall-Face injury,leg/shoulder pain Time Seen by Provider: 10/31/21 19:42 Source: patient, family, RN notes reviewed Mode of arrival: ambulatory - History of Present Illness Initial Comments: This is a 76-year-old female who presents to the emergency department for a fall. Patient was walking around in her yard when she tripped over the hose and fell face first. She has a laceration to her upper lip and pain in the right shoulder and right arm. She takes a baby aspirin daily. Denies any lightheadedness, headaches, shortness of breath, or chest pain prior to the fall. She had no loss of consciousness or prolonged down time. Denies any fevers, chills, sore throat, cough, dyspnea, chest pain, palpitat ions, abdominal pain, nausea, vomiting, diarrhea, back pain, or headaches. MD Complaint: fall Fall From: standing Place Fall Occurred: home Loss of Consciousness: none Prolonged Down Time?: no Symptoms Prior to Fall: none Location: face Location - Extremities: Right: Shoulder, Forearm, Hand Context: tripped/slipped - Related Data Home Medications Medication Instructions Recorded Confirmed Aspirin [Adult Low Dose Aspirin EC] 81 mg PO DAILY 10/19/17 12/11/20 Atorvastatin [Lipitor] 20 mg PO HS 10/19/17 12/11/20 Cranberry Fruit Extract [Cranberry] 200 mg PO HS 10/19/17 12/11/20 Donepezil [Aricept] 10 mg PO HS 10/19/17 12/11/20 Glucosamine-Chondr 500-400Mg 1 tab PO DAILY 10/19/17 12/11/20 Losartan [Cozaar] 25 mg PO QAM 10/19/17 12/11/20 Pantoprazole [Protonix] 40 mg PO QAM 10/19/17 12/11/20 Raloxifene [Evista] 60 mg PO DAILY 10/19/17 12/11/20 Turmeric Root Extract [Turmeric] 1,053 mg PO HS 10/19/17 12/11/20 Vitamin E (Dl,Tocopheryl Acet) 400 unit PO HS 10/19/17 12/11/20 [Vitamin E] atenoloL 25 mg PO BID 10/19/17 12/11/20 flaxseed oiL [Timnath-3 Flaxseed Oil] 1,000 mg PO DAILY 10/19/17 12/11/20 Alive 1 tab PO DAILY 09/22/18 12/11/20 Estradiol Cream [Estrace Cream 1 gm VAGINAL TU 09/22/18 12/11/20 0.01%] Meclizine [Antivert] 25 mg PO TID PRN 12/09/20 12/11/20 Previous Rx's Medication Instructions Recorded Ondansetron Odt [Zofran Odt] 4 mg PO Q8HR PRN #20 tab 09/22/18 traMADol HCl [Ultram] 50 mg PO Q6H PRN #10 tab 12/11/20 HYDROcodone/APAP 5-325MG [[place] 1 tab PO Q6HR PRN 3 Days #12 tab 10/31/21 5-325] Allergies Allergy/AdvReac Type Severity Reaction Status Date / Time ibuprofen [From Motrin] AdvReac Rash/Hives Verified 10/31/21 19:07 morphine AdvReac Nausea Verified 10/31/21 19:07 Review of Systems ROS Statement: Those systems with pertinent positive or pertinent negative responses have been documented in the HPI. ROS Other: All systems not noted in ROS Statement are negative. 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 "Stomach nodules". Hx of an Arrythmia. Varicose veins. History of Any Multi-Drug Resistant Organisms: None Reported Past Surgical History: Cholecystectomy, Hysterectomy, Orthopedic Surgery, Tonsillectomy Additional Past Surgical History / Comment(s): Foot surgery, right ganglion cyst removal, right carpal tunnel surgery, eye lid tumor removed, skin cancer removed from neck, left eye surgery. Past Anesthesia/Blood Transfusion Reactions: Motion Sickness, Postoperative Nausea & Vomiting (PONV) Past Psychological History: No Psychological Hx Reported Smoking Status: Never smoker Past Alcohol Use History: None Reported Past Drug Use History: None Reported - Past Family History Father Family Medical History: Cancer Sister(s) Family Medical History: Cancer General Exam Limitations: no limitations General appearance: alert, in no apparent distress Head exam: Present: other (2 cm laceration to the left side of the upper lip involving the vermilion border) Respiratory exam: Present: normal lung sounds bilaterally. Absent: respiratory distress, wheezes, rales, rhonchi, stridor Cardiovascular Exam: Present: regular rate, normal rhythm, normal heart sounds. Absent: systolic murmur, diastolic murmur, rubs, gallop, clicks Extremities exam: Present: other (Swelling, ecchymosis, and tenderness over the fourth and fifth metacarpals. 2+ radial pulses bilaterally and capillary refill less than 1 second. Limited range of motion of the right shoulder secondary to pain.) Neurological exam: Present: alert, oriented X3, CN II-XII intact Psychiatric exam: Present: normal affect, normal mood Course Vital Signs 10/31/21 10/31/21 10/31/21 19:04 21:30 22:12 Temperature 98 F Pulse Rate 66 61 58 L Respiratory 16 20 20 Rate Blood Pressure 152/56 145/66 136/72 O2 Sat by Pulse 99 95 96 Oximetry Procedures - Laceration Laceration #1 Consent Obtained: verbal consent Indication: laceration Site: lip Size (cm): 2 Description: linear Depth: simple, single layer Anesthetic Used: lidocaine 1%, with epi Anesthesia Technique: local infiltration Amount (mls): 1 Pre-repair: wound explored Type of Sutures: vicryl Size of Sutures: 6-0 Number of Sutures: 3 Technique: simple, interrupted - Orthopedic Splinting/Casting Injury #1 Side: right Upper Extremity Injury Location: wrist Upper Extremity Immobilizer: ulnar gutter Medical Decision Making - Medical Decision Making This is a 76-year-old female who presents to the emergency department for a fall. Patient has intra-articular fractures through the fourth and fifth metacarpals as well as a laceration of the upper lip. Additional x-rays and CT of the head and neck were obtained and did not reveal any additional irregularities. Tetanus status was updated. The patient was placed in an ulnar gutter splint and absorbable sutures were used to repair the laceration to the lip. Orthopedic follow-up listed on her discharge form. Three day course of [place] prescribed, advised she use this sparingly and to otherwise take Tylenol. Patient is unable to take NSAIDs. Instructed her to ice the areas of pain for the first 2 days followed by heat there afterwards and to keep the arm elevated when possible. Return precautions reviewed in depth, the patient is instructed to return to the emergency department with any new, worsening, or concerning symptoms. Patient verbalized understanding. This case was discussed in detail with the attending ED physician. Presentation, findings, and treatment plan discussed in detail as well. - Radiology Data Radiology results: report reviewed, image reviewed Disposition Clinical Impression: Fracture of metacarpal of right hand, closed Disposition: HOME SELF-CARE Instructions (If sedation given, give patient instructions): Splint Care (ED), Care For Your Absorbable Stitches (ED) Additional Instructions: Return to the emergency department with any new, worsening, or concerning symptoms. Contact your orthopedic provider for follow-up. Use the [place] sparingly when the pain is most severe. Otherwise take Tylenol. Keep the arm elevated when possible. Follow up with your primary care provider in 1-2 days. Prescriptions: HYDROcodone/APAP 5-325MG [[place] 5-325] 1 tab PO Q6HR PRN 3 Days #12 tab PRN Reason: Pain Is patient prescribed a controlled substance at d/c from ED?: Yes When asked, does pt state using other controlled substances?: No If prescribed controlled substance>3 days was MAPS reviewed?: Prescribed <3 Days Referrals: Roosevelt Meadows DO [Primary Care Provider] - 1-2 days Talat Luis DO [Doctor of Osteopathic Medicine] - 1-2 days
[2021-10-31 22:12] VITALS: BP 136/72; PULSE 58
== END 2021-10-31 22:23 | disposition home or self-care (01) ==
LOC: EC 17:59
DX: S62.201A Unspecified fracture of first metacarpal bone, right hand, initial encounter for closed fracture (principal); E78.5 Hyperlipidemia, unspecified; E11.9 Type 2 diabetes mellitus without complications; I10 Essential (primary) hypertension; Z88.6 Allergy status to analgesic agent; W01.0XXA Fall on same level from slipping, tripping and stumbling without subsequent striking against object, initial encounter; Y93.01 Activity, walking, marching and hiking
CPT/HCPCS: 12011; 70450; 70486; 90471; 90715; 99284

== ENCOUNTER → 2022-10-26 | Outpatient (CLI) | payer MEDICARE, BC ==
--- NOTE | 2022-10-27 08:33 | MM ---
Reason for Exam: Screening (asymptomatic). Last screening mammogram was performed 12 month(s) ago. Patient History: Menarche at age 12. First Full-Term at age 19. Left ovary removed at age 37. Right ovary removed at age 37. Hysterectomy at age 37. Postmenopausal. Other cancer. Patient used Estrogen for 20 years. Maternal aunt had breast cancer, age 60. Sister had breast cancer, age 60. Risk Values: Ayesha 5 year model risk: 3.3%. NCI Lifetime model risk: 5.9%. Prior Study Comparison: 02/21/2019 Bilateral Screening Mammogram, [facility]. 02/26/2020 Bilateral Screening Mammogram, [facility]. 10/14/2021 Bilateral MG 3D screening mammo w/cad, [facility]. Tissue Density: The breast tissue is heterogeneously dense. This may lower the sensitivity of mammography. Findings: Analyzed By CAD. There is no suspicious group of microcalcifications or new suspicious mass in either breast. Benign vascular calcifications within the left breast. Overall Assessment: Benign, BI-RAD 2 Management: Screening Mammogram of both breasts in 1 year. A clinical breast exam by your physician is recommended on an annual basis and results should be correlated with mammographic findings. Note on Ayesha scores and lifetime risk: 1. A Ayesha score greater than 3% is considered moderate risk. If this is the case, consider specialist referral to assess eligibility for a risk reducing agent. If overall lifetime risk for the development of breast cancer is 20% or higher, the patient may qualify for future screening with alternating mammogram and breast MRI. Electronically signed and approved by: Raji Worthington D.O.
== END | disposition home or self-care (01) ==
LOC: RADMAMWWP 15:51
PROVIDERS: ATTEND Family Medicine
DX: Z12.31 Encounter for screening mammogram for malignant neoplasm of breast (principal); Z78.0 Asymptomatic menopausal state; Z80.3 Family history of malignant neoplasm of breast
CPT/HCPCS: 77063; 77067

== ENCOUNTER → 2023-11-07 | Outpatient (CLI) | payer MEDICARE, BC ==
--- NOTE | 2023-11-09 13:16 | MM ---
Reason for Exam: Screening (asymptomatic). Last mammogram was performed 1 year(s) and 1 month(s) ago. Patient History: Menarche at age 12. First Full-Term at age 19. Left ovary removed at age 37. Right ovary removed at age 37. Hysterectomy at age 37. Postmenopausal. Other cancer. Patient used Estrogen for 20 years. Maternal aunt had breast cancer, age 60. Sister had breast cancer, age 60. Risk Values: Ayesha 5 year model risk: 3.2%. NCI Lifetime model risk: 5.4%. Prior Study Comparison: 02/26/2020 Bilateral Screening Mammogram, [facility]. 10/14/2021 Bilateral MG 3D screening mammo w/cad, [facility]. 10/26/2022 Bilateral MG 3D screening mammo w/cad, [facility]. Tissue Density: The breasts are heterogeneously dense, which may obscure small masses. Findings: Analyzed By CAD. Right breast: There is no suspicious group of microcalcifications or new suspicious mass. Left breast: There is no suspicious group of microcalcifications or new suspicious mass. Overall Assessment: Negative, BI-RAD 1 Management: Screening Mammogram of both breasts in [address] [facility] will attempt to contact patient to return for supplemental views and ultrasound if indicated. Patient should continue monthly self-breast exams. A clinical breast exam by your physician is recommended on an annual basis. This exam should not preclude additional follow-up of suspicious palpable abnormalities. Note on Ayesha scores and lifetime risk: 1. A Ayesha score greater than 3% is considered moderate risk. If this is the case, consider specialist referral to assess eligibility for a risk reducing agent. 2. If overall lifetime risk for the development of breast cancer is 20% or higher, the patient may qualify for future screening with alternating mammogram and breast MRI. Electronically signed and approved by: Hector Noe DO
== END | disposition home or self-care (01) ==
LOC: RADMAMWWP 14:04
PROVIDERS: ATTEND Family Medicine
DX: Z12.31 Encounter for screening mammogram for malignant neoplasm of breast (principal); Z80.3 Family history of malignant neoplasm of breast; Z78.0 Asymptomatic menopausal state
CPT/HCPCS: 77063; 77067

== ENCOUNTER → 2023-12-16 | Outpatient (CLI) | payer MEDICARE, BC | END | disposition home or self-care (01) | LOC: LABPRL 09:50 | PROVIDERS: ATTEND Family Medicine | DX: Z00.00 Encounter for general adult medical examination without abnormal findings (principal); F03.90 Unspecified dementia, unspecified severity, without behavioral disturbance, psychotic disturbance, mood disturbance, and anxiety; I63.9 Cerebral infarction, unspecified; M25.559 Pain in unspecified hip | CPT/HCPCS: 80053; 80061; 83036; 85025 ==

== ENCOUNTER → 2024-01-16 | Outpatient (CLI) | payer MEDICARE, BC ==
--- NOTE | 2024-01-16 13:24 | XR ---
EXAMINATION TYPE: XR lumbar spine 2 or 3V DATE OF EXAM: 01/16/2024 COMPARISON: None, no comparison images available HISTORY: Low back pain with fall 5 days prior TECHNIQUE: 3 view lumbar spine FINDINGS: There are 5 lumbar-type vertebral bodies. Pedicles are intact. Scoliosis is present with si de bending towards the left. Vertebral body heights are preserved. There is diffuse loss of disc heig ht throughout the lumbar spine. There is a superior endplate wedge deformity at T12 with approximately 30% loss of anterior vertebral body height. No retropulsion evident. There is a high density area inferior to the right kidney. This may be within fecal debris. IMPRESSION: 1. Degenerative disc changes and scoliosis within the lumbar spine. 2. Superior endplate wedge deformity at T12 of indeterminate age. [facility], , 01/16/2024 1:22 PM
== END | disposition home or self-care (01) ==
LOC: RADXRMAIN 12:23
PROVIDERS: ATTEND Family Medicine
DX: M54.50 Low back pain, unspecified
CPT/HCPCS: 72100

== ENCOUNTER 2024-01-19 11:27 | Emergency (ER) | payer MEDICARE, BC ==
--- NOTE | 2024-01-19 11:46 | ED ---
General Adult HPI - General Source: patient, family, RN notes reviewed Mode of arrival: wheelchair Limitations: no limitations <Claire Lopez - Last Filed: 01/19/24 11:44> <Hector Vanegas - Last Filed: 01/19/24 15:45> - General Chief complaint: Recheck/Abnormal Lab/Rx Stated complaint: poss covid Time Seen by Provider: 01/19/24 11:40 - History of Present Illness Initial comments: Quick [id number] female presents to the emergency department with her daughter for chief complaint of weakness. Daughter states that patient was diagnosed with a urinary tract infection last week Tuesday and with COVID last week. Patient has been experiencing lower abdominal pain chills and diarrhea. Family states that patient had a fall during this time as well. (Claire Lopez) 78-year-old female presenting with weakness, fatigue. Patient has had urinary tract infection as well as coronavirus over the past 1-1/2 weeks. She states that she was constipated and was started on MiraLAX and has subsequently developed diarrhea over the past 2 days. She has had poor appetite. She has no measured fever but continues to have some chills. She has pain in the low back from a fall which occurred over the past week as well. (Hector Vanegas) - Related Data Home Medications Medication Instructions Recorded Confirmed Aspirin [Adult Low Dose Aspirin EC] 81 mg PO DAILY 10/19/17 12/11/20 Atorvastatin [Lipitor] 20 mg PO HS 10/19/17 12/11/20 Cranberry Fruit Extract [Cranberry] 200 mg PO HS 10/19/17 12/11/20 Donepezil [Aricept] 10 mg PO HS 10/19/17 12/11/20 Glucosamine-Chondr 500-400Mg 1 tab PO DAILY 10/19/17 12/11/20 Losartan [Cozaar] 25 mg PO QAM 10/19/17 12/11/20 Pantoprazole [Protonix] 40 mg PO QAM 10/19/17 12/11/20 Raloxifene [Evista] 60 mg PO DAILY 10/19/17 12/11/20 Turmeric Root Extract [Turmeric] 1,053 mg PO HS 10/19/17 12/11/20 Vitamin E (Dl,Tocopheryl Acet) 400 unit PO HS 10/19/17 12/11/20 [Vitamin E] atenoloL 25 mg PO BID 10/19/17 12/11/20 flaxseed oiL [[place]-3 Flaxseed Oil] 1,000 mg PO DAILY 10/19/17 12/11/20 Alive 1 tab PO DAILY 09/22/18 12/11/20 Estradiol Cream [Estrace Cream 1 gm VAGINAL TU 09/22/18 12/11/20 0.01%] Meclizine [Antivert] 25 mg PO TID PRN 12/09/20 12/11/20 Previous Rx's Medication Instructions Recorded Ondansetron Odt [Zofran Odt] 4 mg PO Q8HR PRN #20 tab 09/22/18 traMADol HCl [Ultram] 50 mg PO Q6H PRN #10 tab 12/11/20 HYDROcodone/APAP 5-325MG [[place] 1 tab PO Q6HR PRN 3 Days #12 tab 10/31/21 5-325] Allergies Allergy/AdvReac Type Severity Reaction Status Date / Time ibuprofen [From Motrin] AdvReac Rash/Hives Verified 01/19/24 11:31 morphine AdvReac Nausea Verified 01/19/24 11:31 Review of Systems ROS Other: All systems not noted in ROS Statement are negative. <Claire Lopez - Last Filed: 01/19/24 11:44> ROS Other: All systems not noted in ROS Statement are negative. <Hector Vanegas - Last Filed: 01/19/24 15:45> ROS Statement: Those systems with pertinent positive or pertinent negative responses have been documented in the HPI. 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 "Stomach nodules". Hx of an Arrythmia. Varicose veins. Dementia History of Any Multi-Drug Resistant Organisms: None Reported Past Surgical History: Cholecystectomy, Hysterectomy, Orthopedic Surgery, Tonsillectomy Additional Past Surgical History / Comment(s): Foot surgery, right ganglion cyst removal, right carpal tunnel surgery, eye lid tumor removed, skin cancer removed from neck, left eye surgery. Past Anesthesia/Blood Transfusion Reactions: Motion Sickness, Postoperative Nausea & Vomiting (PONV) Past Psychological History: No Psychological Hx Reported Smoking Status: Never smoker Past Alcohol Use History: None Reported Past Drug Use History: None Reported - Past Family History Father Family Medical History: Cancer Sister(s) Family Medical History: Cancer <Claire Lopez - Last Filed: 01/19/24 11:44> General Exam Limitations: no limitations <Claire Lopez - Last Filed: 01/19/24 11:44> General appearance: alert, in no apparent distress Head exam: Present: atraumatic, normocephalic Eye exam: Present: normal appearance, PERRL ENT exam: Present: mucous membranes dry Neck exam: Present: normal inspection. Absent: tenderness, meningismus Respiratory exam: Present: normal lung sounds bilaterally. Absent: respiratory distress, wheezes Cardiovascular Exam: Present: normal rhythm, bradycardia GI/Abdominal exam: Present: soft. Absent: distended, tenderness, guarding Neurological exam: Present: alert, oriented X3, CN II-XII intact. Absent: motor sensory deficit Skin exam: Present: warm, dry, intact <Hector Vanegas - Last Filed: 01/19/24 15:45> - General Exam Comments Initial Comments: Visual Physical Exam Vital signs reviewed General: Well-appearing, nontoxic, no acute distress. Head: Normocephalic, atraumatic Eyes: PERRLA, EOMI ENT: Airway patent Chest: Nonlabored breathing Skin: No visual rash, normal skin tone Neuro: Alert and oriented 3 Musculoskeletal: No gross abnormalities (Claire Lopez) Course Vital Signs 01/19/24 01/19/24 11:28 15:07 Temperature 97.7 F 97.6 F Pulse Rate 57 L 65 Respiratory 20 Rate Blood Pressure 138/86 122/71 O2 Sat by Pulse 96 96 Oximetry Medical Decision Making <Claire Lopez - Last Filed: 01/19/24 11:44> - Lab Data Result diagrams: 01/19/24 11:45 01/19/24 11:45 <Hector Vanegas - Last Filed: 01/19/24 15:45> - Medical Decision Making I completed the quick note portion of this chart signed Claire Lopez PA-C (Claire Lopez) Was pt. sent in by a medical professional or institution ([facility], [facility], urgent care, hospital, or residential...) When possible be specific @ -No Did you speak to anyone other than the patient for history (EMS, parent, family, police, friend...)? What history was obtained from this source @ -No Did you review nursing and triage notes (agree or disagree)? Why? @ -I reviewed and agree with nursing and triage notes Were old charts reviewed (outside hosp., previous admission, EMS record, old EKG, old radiological studies, urgent care reports/EKG's, residential records)? Report findings @ -No old charts were reviewed Differential Diagnosis (chest pain, altered mental status, abdominal pain women, abdominal pain men, vaginal bleeding, weakness, fever, dyspnea, syncope, h eadache, dizziness, GI bleed, back pain, seizure, CVA, palpatations, mental health, musculoskeletal)? @ -Not applicable EKG interpreted by me (3pts min.). @Sinus bradycardia no ST segment elevation, rate of 57, W[place] interval 149, QRS duration 82, QTc 422 X-rays interpreted by me (1pt min.). @ -None done CT interpreted by me (1pt min.). @ -None done U/S interpreted by me (1pt. min.). @ -None done What testing was considered but not performed or refused? (CT, X-rays, U/S, labs)? Why? @ -None What meds were considered but not given or refused? Why? @ -None Did you discuss the management of the patient with other professionals (professionals i.e. [facility], [employer], lab, RT, psych nurse, social service manager, consulting analyst, teacher, community service officer coordinator, watch case polisher)? Give summary @ -No Was smoking cessation discussed for >3mins.? @ -No Was critical care preformed (if so, how long)? @ -No Were there social determinants of health that impacted care today? How? (Homelessness, low income, unemployed, alcoholism, drug addiction, transportation, low edu. Level, literacy, decrease access to med. care, usp, rehab)? @ -No Was there de-escalation of care discussed even if they declined (Discuss DNR or withdrawal of care, Hospice)? DNR status @ -No What co-morbidities impacted this encounter? (DM, HTN, Smoking, COPD, CAD, Cancer, CVA, ARF, Chemo, Hep., AIDS, mental health diagnosis, sleep apnea, morbid obesity)? @ -None Was patient admitted / discharged? Hospital course, mention meds given and route, prescriptions, significant lab abnormalities, going to OR and other pertinent info. @ -Chest x-ray clear, no focal pneumonia, no acute findings Undiagnosed new problem with uncertain pr 78-year-old female with generalized weakness, patient has recent diagnosis of coronavirus which she was treated, [place] I, completed antibiotic therapy and diarrhea over the past several days. Hemodynamically stable. Laboratory testing is unremarkable. Patient continues to test positive for coronavirus. I did offer observation for hydration however patient and family declined they prefer discharge. They will return as needed.ognosis? @ -No Drug Therapy requiring intensive monitoring for toxicity (Heparin, Nitro, Insulin, Cardizem)? @ -No Were any procedures done? @ -No Diagnosis/symptom? @ -Dehydration, coronavirus Acute, or Chronic, or Acute on Chronic? @Acute Uncomplicated (without systemic symptoms) or Complicated (systemic symptoms)? @ -Default Side effects of treatment? @ -No Exacerbation, Progression, or Severe Exacerbation? @ -No Poses a threat to life or bodily function? How? (Chest pain, [place], [place], pneumonia, PE, COPD, DKA, ARF, appy, cholecystitis, CVA, Diverticulitis, Homicidal, Suici andrew, threat to staff... and all critical care pts) @Low risk at this time (Hector Vanegas) - Lab Data Lab Results 01/19/24 01/19/24 01/19/24 Range/Units 11:45 11:45 11:45 WBC 11.2 H (3.8-10.6) k/uL RBC 4.74 (3.80-5.40) m/uL Hgb 14.0 (11.4-16.0) gm/dL Hct 43.5 (34.0-46.0) % MCV 91.9 (80.0-100.0) fL MCH 29.5 (25.0-35.0) pg MCHC 32.1 (31.0-37.0) g/dL RDW 13.2 (11.5-15.5) % Plt Count 248 (150-450) k/uL MPV 8.0 Neutrophils % 85 % Lymphocytes % 9 % Monocytes % 5 % Eosinophils % 0 % Basophils % 0 % Neutrophils # 9.5 H (1.3-7.7) k/uL Lymphocytes # 1.0 (1.0-4.8) k/uL Monocytes # 0.6 (0-1.0) k/uL Eosinophils # 0.0 (0-0.7) k/uL Basophils # 0.0 (0-0.2) k/uL PT 11.3 (10.0-12.5) sec INR 1.0 (<1.2) APTT 19.3 L (22.0-30.0) sec Sodium (137-145) mmol/L Potassium (3.5-5.1) mmol/L Chloride (98-107) mmol/L Carbon Dioxide (22-30) mmol/L Anion Gap mmol/L BUN (7-17) mg/dL Creatinine (0.52-1.04) mg/dL Est GFR (CKD-EPI)AfAm (>60 ml/min/1.73 sqM) Est GFR (CKD-EPI)NonAf (>60 ml/min/1.73 sqM) Glucose (74-99) mg/dL Plasma Lactic Acid Dominguez (0.7-2.0) mmol/L Calcium (8.4-10.2) mg/dL Magnesium (1.6-2.3) mg/dL Total Bilirubin (0.2-1.3) mg/dL AST (14-36) U/L ALT (4-34) U/L Alkaline Phosphatase (38-126) U/L Troponin I (0.000-0.034) ng/mL Total Protein (6.3-8.2) g/dL Albumin (3.5-5.0) g/dL Urine Color Colorless Urine Appearance Clear (Clear) Urine pH 6.5 (5.0-8.0) Ur Specific Bruce 1.015 (1.001-1.035) Urine Protein Negative (Negative) Urine Glucose (UA) Negative (Negative) Urine Ketones Negative (Negative) Urine Blood Negative (Negative) Urine Nitrite Negative (Negative) Urine Bilirubin Negative (Negative) Urine Urobilinogen <2.0 (<2.0) mg/dL Ur Leukocyte Esterase Moderate H (Negative) Urine RBC 1 (0-5) /hpf Urine WBC 9 H (0-5) /hpf Ur Squamous Epith Cells 1 (0-4) /hpf Urine Bacteria Rare H (None) /hpf Hyaline Casts 2 (0-2) /lpf Urine Mucus Rare H (None) /hpf Influenza Type A (PCR) (Not Detectd) Influenza Type B (PCR) (Not Detectd) RSV (PCR) (Not Detectd) SARS-CoV-2 (PCR) (Not Detectd) 01/19/24 01/19/24 01/19/24 Range/Units 11:45 11:45 11:45 WBC (3.8-10.6) k/uL RBC (3.80-5.40) m/uL Hgb (11.4-16.0) gm/dL Hct (34.0-46.0) % MCV (80.0-100.0) fL MCH (25.0-35.0) pg MCHC (31.0-37.0) g/dL RDW (11.5-15.5) % Plt Count (150-450) k/uL MPV Neutrophils % % Lymphocytes % % Monocytes % % Eosinophils % % Basophils % % Neutrophils # (1.3-7.7) k/uL Lymphocytes # (1.0-4.8) k/uL Monocytes # (0-1.0) k/uL Eosinophils # (0-0.7) k/uL Basophils # (0-0.2) k/uL PT (10.0-12.5) sec INR (<1.2) APTT (22.0-30.0) sec Sodium 130 L (137-145) mmol/L Potassium 5.1 (3.5-5.1) mmol/L Chloride 94 L (98-107) mmol/L Carbon Dioxide 25 (22-30) mmol/L Anion Gap 11 mmol/L BUN 23 H (7-17) mg/dL Creatinine 0.61 (0.52-1.04) mg/dL Est GFR (CKD-EPI)AfAm >90 (>60 ml/min/1.73 sqM) Est GFR (CKD-EPI)NonAf 87 (>60 ml/min/1.73 sqM) Glucose 137 H (74-99) mg/dL Plasma Lactic Acid Dominguez 2.2 H* (0.7-2.0) mmol/L Calcium 9.6 (8.4-10.2) mg/dL Magnesium 2.1 (1.6-2.3) mg/dL Total Bilirubin 0.7 (0.2-1.3) mg/dL AST 29 (14-36) U/L ALT 23 (4-34) U/L Alkaline Phosphatase 53 (38-126) U/L Troponin I <0.012 (0.000-0.034) ng/mL Total Protein 7.1 (6.3-8.2) g/dL Albumin 4.2 (3.5-5.0) g/dL Urine Color Urine Appearance (Clear) Urine pH (5.0-8.0) Ur Specific Bruce (1.001-1.035) Urine Protein (Negative) Urine Glucose (UA) (Negative) Urine Ketones (Negative) Urine Blood (Negative) Urine Nitrite (Negative) Urine Bilirubin (Negative) Urine Urobilinogen (<2.0) mg/dL Ur Leukocyte Esterase (Negative) Urine RBC (0-5) /hpf Urine WBC (0-5) /hpf Ur Squamous Epith Cells (0-4) /hpf Urine Bacteria (None) /hpf Hyaline Casts (0-2) /lpf Urine Mucus (None) /hpf Influenza Type A (PCR) (Not Detectd) Influenza Type B (PCR) (Not Detectd) RSV (PCR) (Not Detectd) SARS-CoV-2 (PCR) (Not Detectd) 01/19/24 Range/Units 11:46 WBC (3.8-10.6) k/uL RBC (3.80-5.40) m/uL Hgb (11.4-16.0) gm/dL Hct (34.0-46.0) % MCV (80.0-100.0) fL MCH (25.0-35.0) pg MCHC (31.0-37.0) g/dL RDW (11.5-15.5) % Plt Count (150-450) k/uL MPV Neutrophils % % Lymphocytes % % Monocytes % % Eosinophils % % Basophils % % Neutrophils # (1.3-7.7) k/uL Lymphocytes # (1.0-4.8) k/uL Monocytes # (0-1.0) k/uL Eosinophils # (0-0.7) k/uL Basophils # (0-0.2) k/uL PT (10.0-12.5) sec INR (<1.2) APTT (22.0-30.0) sec Sodium (137-145) mmol/L Potassium (3.5-5.1) mmol/L Chloride (98-107) mmol/L Carbon Dioxide (22-30) mmol/L Anion Gap mmol/L BUN (7-17) mg/dL Creatinine (0.52-1.04) mg/dL Est GFR (CKD-EPI)AfAm (>60 ml/min/1.73 sqM) Est GFR (CKD-EPI)NonAf (>60 ml/min/1.73 sqM) Glucose (74-99) mg/dL Plasma Lactic Acid Dominguez (0.7-2.0) mmol/L Calcium (8.4-10.2) mg/dL Magnesium (1.6-2.3) mg/dL Total Bilirubin (0.2-1.3) mg/dL AST (14-36) U/L ALT (4-34) U/L Alkaline Phosphatase (38-126) U/L Troponin I (0.000-0.034) ng/mL Total Protein (6.3-8.2) g/dL Albumin (3.5-5.0) g/dL Urine Color Urine Appearance (Clear) Urine pH (5.0-8.0) Ur Specific Bruce (1.001-1.035) Urine Protein (Negative) Urine Glucose (UA) (Negative) Urine Ketones (Negative) Urine Blood (Negative) Urine Nitrite (Negative) Urine Bilirubin (Negative) Urine Urobilinogen (<2.0) mg/dL Ur Leukocyte Esterase (Negative) Urine RBC (0-5) /hpf Urine WBC (0-5) /hpf Ur Squamous Epith Cells (0-4) /hpf Urine Bacteria (None) /hpf Hyaline Casts (0-2) /lpf Urine Mucus (None) /hpf Influenza Type A (PCR) Not Detected (Not Detectd) Influenza Type B (PCR) Not Detected (Not Detectd) RSV (PCR) Not Detected (Not Detectd) SARS-CoV-2 (PCR) Detected A (Not Detectd) Disposition <Stieler,Claire - Last Filed: 01/19/24 11:44> Is patient prescribed a controlled substance at d/c from ED?: No Time of Disposition: 15:39 <Hector Vanegas - Last Filed: 01/19/24 15:45> Clinical Impression: COVID-19, Dehydration Disposition: HOME SELF-CARE Condition: Fair Instructions (If sedation given, give patient instructions): Dehydration (ED), COVID-19 (Coronavirus Disease 2019) (ED) Referrals: [facility] [place] DO [Primary Care Provider] - 1-2 days
--- NOTE | 2024-01-19 12:06 | XR ---
EXAMINATION TYPE: XR chest 2V DATE OF EXAM: 01/19/2024 COMPARISON: 09/22/2018 INDICATION: Weakness TECHNIQUE: Frontal and lateral views of the chest are obtained. FINDINGS: The heart size is normal. The pulmonary vasculature is normal. The lungs are clear. IMPRESSION: 1. No acute pulmonary process. [facility], Workstation: 3, 01/19/2024 12:04 PM
[2024-01-19] MEDS: SODIUM CHLORIDE 0.9% 1,000 ML IV ONE (13:05)
[2024-01-19 13:35] LABS: Basophils % (A) 0 %; Eosinophils % (A) 0 %; HCT 43.5 % (34.0-46.0); Lymphocytes % (A) 9 %; MCH 29.5 pg (25.0-35.0); MCHC 32.1 g/dL (31.0-37.0); MCV 91.9 fL (80.0-100.0); Monocytes # (A) 0.6 k/uL (0-1.0); Monocytes % (A) 5 %; Neutrophils # (A) 9.5 k/uL (1.3-7.7); Neutrophils % (A) 85 %; Platelet Count 248 k/uL (150-450); RBC 4.74 m/uL (3.80-5.40); RDW 13.2 % (11.5-15.5); WBC 11.2 k/uL (3.8-10.6)
[2024-01-19 13:51] LABS: Prothrombin Time 11.3 sec (10.0-12.5)
[2024-01-19 13:57] LABS: Partial Thromboplastin Time 19.3 sec (22.0-30.0)
[2024-01-19 13:59] LABS: ALT 23 U/L (4-34); AST 29 U/L (14-36); African American GFR (CKD) >90 (>60 ml/min/1.73 sqM); Albumin 4.2 g/dL (3.5-5.0); Alkaline Phosphatase 53 U/L (38-126); Anion Gap 11 mmol/L; Blood Urea Nitrogen 23 mg/dL (7-17); Calcium 9.6 mg/dL (8.4-10.2); Carbon Dioxide 25 mmol/L (22-30); Chloride 94 mmol/L (98-107); Glucose 137 mg/dL (74-99); Magnesium 2.1 mg/dL (1.6-2.3); Non-African American GFR(CKD) 87 (>60 ml/min/1.73 sqM); Potassium 5.1 mmol/L (3.5-5.1); Sodium 130 mmol/L (137-145); Total Bilirubin 0.7 mg/dL (0.2-1.3); Total Protein 7.1 g/dL (6.3-8.2)
[2024-01-19 14:10] LABS: Appearance,Urine Clear (Clear); Bacteria,Urine Rare /hpf; Bilirubin,Urine Negative (Negative); Blood,Urine Negative (Negative); Color,Urine Colorless; Glucose,Urine (UA) Negative (Negative); Hyaline Casts,Urine 2 /lpf (0-2); Ketones,Urine Negative (Negative); Leukocyte Esterase,Urine Moderate (Negative); Mucus,Urine Rare /hpf; Nitrite,Urine Negative (Negative); PH, Urine 6.5 (5.0-8.0); Protein,Urine Negative (Negative); RBC,Urine 1 /hpf (0-5); Specific Gravity,Urine 1.015 (1.001-1.035); Squamous Epithelial Cell,Urine 1 /hpf (0-4); Urobilinogen,Urine <2.0 mg/dL (<2.0); WBC,Urine 9 /hpf (0-5)
[2024-01-19 15:09] VITALS: TEMP 97.6
[2024-01-19 15:48] VITALS: BP 146/82; PULSE 76; RESP 16
== END 2024-01-19 15:47 | disposition home or self-care (01) ==
LOC: EC 11:27
CPT/HCPCS: 36415; 71046; 80053; 81001; 83605; 83735; 84484; 85025; 85610; 85730; 87636; 93005; 96361; 99284

== ENCOUNTER 2024-01-24 14:15 | Inpatient (IN) | payer MEDICARE, BC ==
--- NOTE | 2024-01-24 14:55 | ED ---
Weakness HPI - General Source: patient, family, RN notes reviewed Mode of arrival: ambulatory Limitations: no limitations <Claire Lopez - Last Filed: 01/24/24 19:31> - General Source: patient, family, RN notes reviewed, old records reviewed, Caregiver Mode of arrival: ambulatory Limitations: no limitations - History of Present Illness MD Complaint: generalized weakness, lack of energy, difficulty walking -: days(s) Location: generalized Severity: severe Severity scale (1-10): 10 Consistency: constant Improves with: none Worsens with: none Context: recent illness, history of similar Associated Symptoms: loss of appetite, shortness of breath <Amado Muñoz - Last Filed: 02/02/24 17:36> - General Chief complaint: Weakness Stated complaint: Weakness Time Seen by Provider: 01/24/24 14:31 - History of Present Illness Initial comments: Quick [id number] female presents emergency department accompanied by her daughter chief complaint of longstanding COVID symptoms. Patient was diagnosed with COVID 2 weeks ago and has been persistently having decreased appetite and overall weakness. (Claire Lopez) This is a 79-year-old female to ER for persistent weakness of follow-up with back fracture and back pain severe and generalized debility decreased appetite not feeling well and uncontrolled back pain with persistent coronavirus 2 weeks ago (Amado Muñoz) - Related Data Home Medications Medication Instructions Recorded Confirmed Aspirin [Adult Low Dose Aspirin EC] 81 mg PO HS 10/19/17 01/29/24 Atorvastatin [Lipitor] 20 mg PO HS 10/19/17 01/29/24 Donepezil [Aricept] 10 mg PO DAILY 10/19/17 01/29/24 Glucosamine-Chondr 500-400Mg 1 tab PO DAILY 10/19/17 01/29/24 Raloxifene [Evista] 60 mg PO DAILY 10/19/17 01/29/24 Acetaminophen [Tylenol Arthritis] 650 mg PO BID 01/24/24 01/29/24 Ammonium Lactate Cream [Lac-Hydrin 1 applic TOPICAL DAILY PRN 01/24/24 01/29/24 12% Cream] Clobetasol Propionate [Temovate 1 applic TOPICAL BID PRN 01/24/24 01/29/24 0.05% Cream] Colestipol HCl 2 gm PO HS 01/24/24 01/29/24 Escitalopram [Lexapro] 10 mg PO DAILY 01/24/24 01/29/24 Fexofenadine HCl [Karlee Allergy] 180 mg PO DAILY 01/24/24 01/29/24 Memantine [Namenda] 10 mg PO BID 01/24/24 01/29/24 Multivit-Min/Iron/Folic/Lutein 1 tab PO DAILY 01/24/24 01/29/24 [Centrum Silver Women Tablet] Mv-Mn/Om3/Dha/Epa/Fish/Lut/German 1 cap PO HS 01/24/24 01/29/24 [Ocuvite Adult 50 Plus Softgel] Sennosides [Senokot] 8.6 mg PO BID PRN 01/24/24 01/29/24 Biotin 5,000 mcg PO DAILY 01/29/24 01/29/24 Cranberry 450mg 450 mg PO HS 01/29/24 01/29/24 INSULIN LISPRO (HumaLOG) [humaLOG] See Protocol SQ ACHS 01/29/24 01/29/24 Omeprazole 20 mg PO DAILY 01/29/24 01/29/24 Previous Rx's Medication Instructions Recorded OLANZapine [ZyPREXA] 5 mg PO HS #3 tab 01/26/24 Amiodarone [Cordarone] 400 mg PO BID #180 tab 01/31/24 Apixaban Initiation Dose--VTE 10 mg PO Q12H tab 01/31/24 [Eliquis Initiation Dosing for VTE Treatment] HYDROcodone/APAP 5-325MG [[place] 1 each PO Q6HR PRN #12 tab 01/31/24 5-325] Metoprolol Succinate (ER) [Toprol 25 mg PO DAILY tab 01/31/24 XL] Allergies Allergy/AdvReac Type Severity Reaction Status Date / Time ibuprofen [From Motrin] AdvReac Rash/Hives Verified 01/29/24 12:25 morphine AdvReac Nausea Verified 01/29/24 12:25 Review of Systems ROS Other: All systems not noted in ROS Statement are negative. <Claire Lpoez - Last Filed: 01/24/24 19:31> ROS Other: All systems not noted in ROS Statement are negative. <Amado Muñoz - Last Filed: 02/02/24 17:36> ROS Statement: Those systems with pertinent positive or pertinent negative responses have been documented in the HPI. 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 "Stomach nodules". Hx of an Arrythmia. Varicose veins. Dementia History of Any Multi-Drug Resistant Organisms: None Reported Past Surgical History: Cholecystectomy, Hysterectomy, Orthopedic Surgery, Tonsillectomy Additional Past Surgical History / Comment(s): Foot surgery, right ganglion cyst removal, right carpal tunnel surgery, eye lid tumor removed, skin cancer removed from neck, left eye surgery. Past Anesthesia/Blood Transfusion Reactions: Motion Sickness, Postoperative Nausea & Vomiting (PONV) Past Psychological History: No Psychological Hx Reported Smoking Status: Never smoker Past Alcohol Use History: None Reported Past Drug Use History: None Reported - Past Family History Father Family Medical History: Cancer Sister(s) Family Medical History: Cancer <Claire Lopez - Last Filed: 01/24/24 19:31> General Exam Limitations: no limitations <Claire Lopez - Last Filed: 01/24/24 19:31> General appearance: alert, in no apparent distress Head exam: Present: atraumatic, normocephalic, normal inspection Eye exam: Present: normal appearance, PERRL, EOMI. Absent: scleral icterus, conjunctival injection, periorbital swelling ENT exam: Present: normal exam, mucous membranes moist Neck exam: Present: normal inspection. Absent: tenderness, meningismus, lymphadenopathy Respiratory exam: Present: normal lung sounds bilaterally. Absent: respiratory distress, wheezes, rales, rhonchi, stridor Cardiovascular Exam: Present: regular rate, normal rhythm, normal heart sounds. Absent: systolic murmur, diastolic murmur, rubs, gallop, clicks GI/Abdominal exam: Present: soft, normal bowel sounds. Absent: distended, tenderness, guarding, rebound, rigid Extremities exam: Present: normal inspection, full ROM, normal capillary refill. Absent: tenderness, pedal edema, joint swelling, calf tenderness Back exam: Present: normal inspection Neurological exam: Present: alert, oriented X3, CN II-XII intact Psychiatric exam: Present: normal affect, normal mood Skin exam: Present: warm, dry, intact, normal color. Absent: rash <Amado Muñoz - Last Filed: 02/02/24 17:36> - General Exam Comments Initial Comments: Visual Physical Exam Vital signs reviewed General: Well-appearing, nontoxic, no acute distress. Head: Normocephalic, atraumatic Eyes: PERRLA, EOMI ENT: Airway patent Chest: Nonlabored breathing Skin: No visual rash, normal skin tone Neuro: Alert and oriented 3 Musculoskeletal: No gross abnormalities (Stieler,Claire) Course <Amado Muñoz - Last Filed: 02/02/24 17:36> Vital Signs 01/24/24 01/24/24 01/24/24 14:29 16:50 17:35 Temperature 98 F Pulse Rate 53 L 55 L 58 L Respiratory 15 15 16 Rate Blood Pressure 93/54 135/62 113/59 O2 Sat by Pulse 96 98 94 L Oximetry 01/24/24 19:58 Temperature Pulse Rate 63 Respiratory 16 Rate Blood Pressure 134/66 O2 Sat by Pulse 96 Oximetry - Reevaluation(s) Reevaluation #1: 01/24/24 16:37 Medical records reviewed (Amado Muñoz) Reevaluation #2: 01/24/24 17:45 Patient symptoms unchanged (Amado Muñoz) Reevaluation #3: 01/24/24 17:45 Patient informed of results and questions answered (Amado Muñoz) Reevaluation #4: Was pt. sent in by a medical professional or institution (, PA, PROSTHETIC DENTIST, urgent care, hospital, or snf...) When possible be specific @ -no Did you speak to anyone other than the patient for history (EMS, parent, family, police, friend...)? What history was obtained from this source @ -no Did you review nursing and triage notes (agree or disagree)? Why? @ -agree Are old charts reviewed (outside hosp., previous admission, EMS record, old EKG, old radiological studies, urgent care reports/EKG's, snf records)? R eport findings @ -yes Differential Diagnosis (chest pain, altered mental status, abdominal pain women, abdominal pain men, vaginal bleeding, weakness, fever, dyspnea, syncope, headache, dizziness, GI bleed, back pain, seizure, CVA, palpatations, mental health, musculoskeletal)? @ -prior EKG interpreted by me (3pts min.). @ -yes X-rays interpreted by me (1pt min.). @ -yes negative for acute disease CT interpreted by me (1pt min.). @ -Yes negative for acute disease U/S interpreted by me (1pt. min.). @ -no What testing was considered but not performed or refused? (CT, X-rays, U/S, labs)? Why? @ -none What meds were considered but not given or refused? Why? @ -none Did you discuss the management of the patient with other professionals (professionals i.e. DrTrenton, PA, PROSTHETIC DENTIST, lab, RT, psych nurse, mental health social worker, teaching dietitian, teacher, corporate compliance officer, case management social worker)? Give summary @ -no Was smoking cessation discussed for >3mins.? @ -no Was critical care preformed (if so, how long)? @ -no Were there social determinants of health that impacted care today? How? (Homelessness, low income, unemployed, alcoholism, drug addiction, transportation, low edu. Level, literacy, decrease access to med. care, fdc, rehab)? @ -none Was there de-escalation of care discussed even if they declined (Discuss DNR or withdrawal of care, Hospice)? DNR status @ -no What co-morbidities impacted this encounter? (DM, HTN, Smoking, COPD, CAD, Cancer, CVA, ARF, Chemo, Hep., AIDS, mental health diagnosis, sleep apnea, morbid obesity)? @ -none Was patient admitted / discharged? Hospital course, mention meds given and route, prescriptions, significant lab abnormalities, going to OR and other pertinent info. @ - 79 female will be admitted for severe debility following recent fall with back pain L-spine fracture and pain control need for better pain control Admitted Undiagnosed new problem with uncertain prognosis? @ -no Drug Therapy requiring intensive monitoring for toxicity (Heparin, Nitro, Insulin, Cardizem)? @ -no Were any procedures done? @ -no Diagnosis/symptom? @ -Fall, back fracture, debility Acute, or Chronic, or Acute on Chronic? @ -Acute Uncomplicated (without systemic symptoms) or Complicated (systemic symptoms)? @ -Complicated Side effects of treatment? @ -no Exacerbation, Progression, or Severe Exacerbation? @ -exacerbation Poses a threat to life or bodily function? How? (Chest pain, [place], [place], pneumonia, PE, COPD, DKA, ARF, appy, cholecystitis, CVA, Diverticulitis, Homicidal, Suicidal, threat to staff... and all critical care pts) @ -yes extremes of age (Amado Muñoz) Reevaluation #5: Differential Weakness: Hypoglycemia, shock, sepsis, hyponatremia, anemia, infection, [place], ETOH, adverse medicine reaction, overdose, stroke, this is not meant to be an all-inclusive list. (Amado Muñoz) - Consultations Consultation #1: Spoke with admitting physicians who agreed to admit this patient (Amado Muñoz) EKG Findings - EKG Comments: EKG Findings:: EKG is sinus bradycardia 54 CA 143 QRS 79 QTc 412 - EKG Results: EKG: interpreted by ERMD <Amado Muñoz - Last Filed: 02/02/24 17:36> Medical Decision Making - Lab Data Result diagrams: 01/24/24 14:59 01/24/24 15:27 <Claire Lopez - Last Filed: 01/24/24 19:31> - Lab Data Result diagrams: 01/25/24 02:56 01/25/24 02:56 - EKG Data -: EKG Interpreted by Me - Radiology Data Radiology results: report reviewed (Chest x-ray is negative for acute disease CTA chest CT abdomen pelvis negative for acute disease), image reviewed <Amado Muñoz - Last Filed: 02/02/24 17:36> - Medical Decision Making I completed the quick note portion of this chart signed Claire Lopez PA-C (Claire Lopez) 79 female will be admitted for severe debility following recent fall with back pain L-spine fracture and pain control need for better pain control (Amado Muñoz) - Lab Data Lab Results 01/24/24 01/24/24 01/24/24 Range/Units 14:59 14:59 14:59 WBC 12.3 H (3.8-10.6) k/uL RBC 4.55 (3.80-5.40) m/uL Hgb 13.6 (11.4-16.0) gm/dL Hct 41.3 (34.0-46.0) % MCV 90.8 (80.0-100.0) fL MCH 29.9 (25.0-35.0) pg MCHC 32.9 (31.0-37.0) g/dL RDW 13.0 (11.5-15.5) % Plt Count 213 (150-450) k/uL MPV 7.4 Neutrophils % 83 % Lymphocytes % 9 % Monocytes % 5 % Eosinophils % 3 % Basophils % 0 % Neutrophils # 10.2 H (1.3-7.7) k/uL Lymphocytes # 1.1 (1.0-4.8) k/uL Monocytes # 0.6 (0-1.0) k/uL Eosinophils # 0.3 (0-0.7) k/uL Basophils # 0.0 (0-0.2) k/uL PT 10.8 (10.0-12.5) sec INR 1.0 (<1.2) APTT 22.2 (22.0-30.0) sec D-Dimer 3.30 H (<0.60) mg/L FEU Sodium (137-145) mmol/L Potassium (3.5-5.1) mmol/L Chloride (98-107) mmol/L Carbon Dioxide (22-30) mmol/L Anion Gap mmol/L BUN (7-17) mg/dL Creatinine (0.52-1.04) mg/dL Est GFR (CKD-EPI)AfAm (>60 ml/min/1.73 sqM) Est GFR (CKD-EPI)NonAf (>60 ml/min/1.73 sqM) Glucose (74-99) mg/dL Estimated Ave Glu mg/dL mg/dL Hemoglobin A1c (<=6.0) % Plasma Lactic Acid [place] 1.2 (0.7-2.0) mmol/L Calcium (8.4-10.2) mg/dL Magnesium (1.6-2.3) mg/dL Total Bilirubin (0.2-1.3) mg/dL AST (14-36) U/L ALT (4-34) U/L Alkaline Phosphatase (38-126) U/L Troponin I (0.000-0.034) ng/mL NT-Pro-B Natriuret Pep pg/mL Total Protein (6.3-8.2) g/dL Albumin (3.5-5.0) g/dL Urine Color Urine Appearance (Clear) Urine pH (5.0-8.0) Ur Specific [place] (1.001-1.035) Urine Protein (Negative) Urine Glucose (UA) (Negative) Urine Ketones (Negative) Urine Blood (Negative) Urine Nitrite (Negative) Urine Bilirubin (Negative) Urine Urobilinogen (<2.0) mg/dL Ur Leukocyte Esterase (Negative) Urine RBC (0-5) /hpf Urine WBC (0-5) /hpf Ur Squamous Epith Cells (0-4) /hpf Calcium Oxalate Crystal (None) /hpf Urine Mucus (None) /hpf 01/24/24 01/24/24 01/24/24 Range/Units 14:59 14:59 15:27 WBC (3.8-10.6) k/uL RBC (3.80-5.40) m/uL Hgb (11.4-16.0) gm/dL Hct (34.0-46.0) % MCV (80.0-100.0) fL MCH (25.0-35.0) pg MCHC (31.0-37.0) g/dL RDW (11.5-15.5) % Plt Count (150-450) k/uL MPV Neutrophils % % Lymphocytes % % Monocytes % % Eosinophils % % Basophils % % Neutrophils # (1.3-7.7) k/uL Lymphocytes # (1.0-4.8) k/uL Monocytes # (0-1.0) k/uL Eosinophils # (0-0.7) k/uL Basophils # (0-0.2) k/uL PT (10.0-12.5) sec INR (<1.2) APTT (22.0-30.0) sec D-Dimer (<0.60) mg/L FEU Sodium 129 L (137-145) mmol/L Potassium 4.4 (3.5-5.1) mmol/L Chloride 100 (98-107) mmol/L Carbon Dioxide 25 (22-30) mmol/L Anion Gap 4 mmol/L BUN 17 (7-17) mg/dL Creatinine 0.55 (0.52-1.04) mg/dL Est GFR (CKD-EPI)AfAm >90 (>60 ml/min/1.73 sqM) Est GFR (CKD-EPI)NonAf 89 (>60 ml/min/1.73 sqM) Glucose 126 H (74-99) mg/dL Estimated Ave Glu mg/dL 163 mg/dL Hemoglobin A1c 7.3 H (<=6.0) % Plasma Lactic Acid [place] (0.7-2.0) mmol/L Calcium 8.9 (8.4-10.2) mg/dL Magnesium 2.0 (1.6-2.3) mg/dL Total Bilirubin 0.5 (0.2-1.3) mg/dL AST 25 (14-36) U/L ALT 31 (4-34) U/L Alkaline Phosphatase 52 (38-126) U/L Troponin I <0.012 (0.000-0.034) ng/mL NT-Pro-B Natriuret Pep 354 pg/mL Total Protein 5.7 L (6.3-8.2) g/dL Albumin 3.2 L (3.5-5.0) g/dL Urine Color Urine Appearance (Clear) Urine pH (5.0-8.0) Ur Specific [place] (1.001-1.035) Urine Protein (Negative) Urine Glucose (UA) (Negative) Urine Ketones (Negative) Urine Blood (Negative) Urine Nitrite (Negative) Urine Bilirubin (Negative) Urine Urobilinogen (<2.0) mg/dL Ur Leukocyte Esterase (Negative) Urine RBC (0-5) /hpf Urine WBC (0-5) /hpf Ur Squamous Epith Cells (0-4) /hpf Calcium Oxalate Crystal (None) /hpf Urine Mucus (None) /hpf 01/24/24 Range/Units 17:00 WBC (3.8-10.6) k/uL RBC (3.80-5.40) m/uL Hgb (11.4-16.0) gm/dL Hct (34.0-46.0) % MCV (80.0-100.0) fL MCH (25.0-35.0) pg MCHC (31.0-37.0) g/dL RDW (11.5-15.5) % Plt Count (150-450) k/uL MPV Neutrophils % % Lymphocytes % % Monocytes % % Eosinophils % % Basophils % % Neutrophils # (1.3-7.7) k/uL Lymphocytes # (1.0-4.8) k/uL Monocytes # (0-1.0) k/uL Eosinophils # (0-0.7) k/uL Basophils # (0-0.2) k/uL PT (10.0-12.5) sec INR (<1.2) APTT (22.0-30.0) sec D-Dimer (<0.60) mg/L FEU Sodium (137-145) mmol/L Potassium (3.5-5.1) mmol/L Chloride (98-107) mmol/L Carbon Dioxide (22-30) mmol/L Anion Gap mmol/L BUN (7-17) mg/dL Creatinine (0.52-1.04) mg/dL Est GFR (CKD-EPI)AfAm (>60 ml/min/1.73 sqM) Est GFR (CKD-EPI)NonAf (>60 ml/min/1.73 sqM) Glucose (74-99) mg/dL Estimated Ave Glu mg/dL mg/dL Hemoglobin A1c (<=6.0) % Plasma Lactic Acid [place] (0.7-2.0) mmol/L Calcium (8.4-10.2) mg/dL Magnesium (1.6-2.3) mg/dL Total Bilirubin (0.2-1.3) mg/dL AST (14-36) U/L ALT (4-34) U/L Alkaline Phosphatase (38-126) U/L Troponin I (0.000-0.034) ng/mL NT-Pro-B Natriuret Pep pg/mL Total Protein (6.3-8.2) g/dL Albumin (3.5-5.0) g/dL Urine Color Yellow Urine Appearance Cloudy H (Clear) Urine pH 6.0 (5.0-8.0) Ur Specific [place] 1.030 (1.001-1.035) Urine Protein 1+ H (Negative) Urine Glucose (UA) Negative (Negative) Urine Ketones Negative (Negative) Urine Blood Large H (Negative) Urine Nitrite Negative (Negative) Urine Bilirubin Negative (Negative) Urine Urobilinogen <2.0 (<2.0) mg/dL Ur Leukocyte Esterase Moderate H (Negative) Urine RBC 141 H (0-5) /hpf Urine WBC 44 H (0-5) /hpf Ur Squamous Epith Cells 1 (0-4) /hpf Calcium Oxalate Crystal Few H (None) /hpf Urine Mucus Many H (None) /hpf Disposition <Claire Lopez - Last Filed: 01/24/24 19:31> Is patient prescribed a controlled substance at d/c from ED?: No <Amado Muñoz - Last Filed: 02/02/24 17:36> Clinical Impression: Dehydration, Back pain, Intractable back pain Disposition: ADMITTED IP TO THIS HOSP Condition: Stable
[2024-01-24 15:08] LABS: Basophils % (A) 0 %; Eosinophils # (A) 0.3 k/uL (0-0.7); Eosinophils % (A) 3 %; HCT 41.3 % (34.0-46.0); HGB 13.6 gm/dL (11.4-16.0); Lymphocytes # (A) 1.1 k/uL (1.0-4.8); Lymphocytes % (A) 9 %; MCH 29.9 pg (25.0-35.0); MCHC 32.9 g/dL (31.0-37.0); MCV 90.8 fL (80.0-100.0); Mean Platelet Volume 7.4; Monocytes # (A) 0.6 k/uL (0-1.0); Monocytes % (A) 5 %; Neutrophils # (A) 10.2 k/uL (1.3-7.7); Neutrophils % (A) 83 %; Platelet Count 213 k/uL (150-450); RBC 4.55 m/uL (3.80-5.40); WBC 12.3 k/uL (3.8-10.6)
[2024-01-24 15:22] LABS: Prothrombin Time 10.8 sec (10.0-12.5)
[2024-01-24 15:23] LABS: Partial Thromboplastin Time 22.2 sec (22.0-30.0)
--- NOTE | 2024-01-24 16:08 | XR ---
EXAMINATION TYPE: XR chest 2V DATE OF EXAM: 01/24/2024 COMPARISON: 01/19/2024 HISTORY: Shortness of breath TECHNIQUE: Frontal and lateral views of the chest are obtained. FINDINGS: Scattered senescent parenchymal changes noted. Hyperinflation compatible with COPD. No evidence for infiltrate. No evidence for atelectasis. Heart size is stable. Mediastinal structures are stable and grossly unremarkable. No evidence for hilar prominence. Degenerative changes dorsal spine. IMPRESSION: 1. No evidence for acute pulmonary disease. [facility], , 01/24/2024 4:06 PM
[2024-01-24 16:18] LABS: ALT 31 U/L (4-34); AST 25 U/L (14-36); African American GFR (CKD) >90 (>60 ml/min/1.73 sqM); Albumin 3.2 g/dL (3.5-5.0); Alkaline Phosphatase 52 U/L (38-126); Anion Gap 4 mmol/L; Blood Urea Nitrogen 17 mg/dL (7-17); Calcium 8.9 mg/dL (8.4-10.2); Carbon Dioxide 25 mmol/L (22-30); Chloride 100 mmol/L (98-107); Glucose 126 mg/dL (74-99); Non-African American GFR(CKD) 89 (>60 ml/min/1.73 sqM); Potassium 4.4 mmol/L (3.5-5.1); Sodium 129 mmol/L (137-145); Total Bilirubin 0.5 mg/dL (0.2-1.3); Total Protein 5.7 g/dL (6.3-8.2)
[2024-01-24 16:23] LABS: NT-Pro-B-Type Natriuretic Pept 354 pg/mL
[2024-01-24] MEDS ORDERED: ONDANSETRON 4 MG/2 ML VIAL IVP PRN (17:05)
[2024-01-24] MEDS ORDERED: NALOXONE 0.4 MG/ML 1 ML VIAL IV PRN (17:05)
[2024-01-24] MEDS: HYDROmorphone 0.5 MG/0.5 ML SYRINGE IVP STA (17:33)
[2024-01-24] MEDS: SODIUM CHLORIDE 0.9% 1,000 ML IV SCH ×2 (17:35→18:02)
[2024-01-24 17:50] LABS: Appearance,Urine Cloudy (Clear); Bilirubin,Urine Negative (Negative); Blood,Urine Large (Negative); Calcium Oxalate Crystals,Urine Few /hpf; Color,Urine Yellow; Glucose,Urine (UA) Negative (Negative); Ketones,Urine Negative (Negative); Leukocyte Esterase,Urine Moderate (Negative); Mucus,Urine Many /hpf; Nitrite,Urine Negative (Negative); Protein,Urine 1+ (Negative); RBC,Urine 141 /hpf (0-5); Squamous Epithelial Cell,Urine 1 /hpf (0-4); Urobilinogen,Urine <2.0 mg/dL (<2.0); WBC,Urine 44 /hpf (0-5)
--- NOTE | 2024-01-24 20:59 | CT ---
CTA CHEST EXAMINATION TYPE: CT angio chest DATE OF EXAM: 01/24/2024 INDICATION: Pt tested positive for covid 2 weeks ago, and pt is still very weak and pale, lower back pain. CT DLP: Combined DLP of 1070.9 mGycm, Automated exposure control for dose reduction was used. CONTRAST: Patient injected with 100 ml mL of Isovue 370. COMPARISON: None TECHNIQUE: CT of the chest is performed on a spiral scan at 2 mm thick sections. Study is performed with intravenous contrast timed for evaluation for pulmonary embolism. This will limit additional po rtions of the evaluation. 3-D MIP images reconstructed by the technologist are reviewed on the compu ter in the coronal and sagittal planes. FINDINGS: No persistent filling defects are evident to suggest an acute pulmonary embolism. No mediastinal or hilar adenopathy enlarged by CT criteria is evident. The ascending aorta diameter at the level of the main pulmonary artery is 2.7 cm. The main pulmonary artery diameter at the bifurcation is 2.6 cm. Lung windows are clear. Limited CT sections were through the upper abdomen. We see CT abdomen report same date IMPRESSION: 1. No acute pulmonary embolus. 2. No acute pulmonary process. [facility], , 01/24/2024 8:57 PM
[2024-01-24] MEDS: HYDROmorphone 0.5 MG/0.5 ML SYRINGE IVP PRN (21:05)
--- NOTE | 2024-01-24 21:35 | CT ---
EXAMINATION TYPE: CT abdomen pelvis w con DATE OF EXAM: 01/24/2024 COMPARISON: None INDICATION: Pt tested positive for covid 2 weeks ago, and pt is still very weak and pale, lower back pain. DLP: Combined DLP of 1070.9 mGycm, Automated exposure control for dose reduction was used. CONTRAST: 100 ml mL of Isovue 370. Study performed without Oral Contrast TECHNIQUE: Axial images were obtained from above the diaphragm to the pubic rami in the axial plane a t 5 mm thick sections. Reconstructed images are reviewed on the computer in the coronal plane. FINDINGS: Limited CT sections are obtained the lung bases. The lung bases are clear. CT ABDOMEN: Liver: There is a hepatic cyst within the left lobe liver. No masses are evident. Spleen: Normal Pancreas: Normal Adrenal glands: The adrenal glands are normal. Gallbladder: Surgically absent Kidneys: No masses are evident. No hydronephrosis is present. No cysts are present. There is a 1.2 cm nonobstructing renal stone in right renal collecting system. Delayed images were obtained through the kidneys remain unremarkable. Aorta: Vascular calcification is within the aorta. Inferior vena cava: Normal. CT PELVIS: Loops of bowel within the abdomen and pelvis are normal. This study is without oral contrast limi ting evaluation. Appendix: Appears to be the appendix is unremarkable. No suspicious dilated tubular structure or infl ammatory changes. Urinary bladder: Normal. Genitourinary structures: Uterus and ovaries are not identified. Osseous structures: No suspicious lytic or sclerotic lesions. IMPRESSION: 1. Left lobe liver hepatic cyst. 2. A 1.2 cm nonobstructing right renal stone within the renal pelvis. [facility], , 01/24/2024 9:33 PM
[2024-01-25 05:47] LABS: Glucose,Whole Blood 132 mg/dL (70-110)
[2024-01-25] MEDS ORDERED: SENNOSIDES 8.6 MG TAB PO PRN (08:19)
[2024-01-25] MEDS ORDERED: DEXTROSE 50% SYRINGE 50 ML IVP PRN ×2 (08:22)
[2024-01-25] MEDS: atenoloL 25 MG TAB PO SCH (09:05)
[2024-01-25] MEDS: LOSARTAN 25 MG TAB PO SCH (09:05)
[2024-01-25] MEDS: ESCITALOPRAM 10 MG TAB PO SCH (09:05)
[2024-01-25] MEDS: PANTOPRAZOLE 40 MG TABLET PO SCH (09:05)
[2024-01-25] MEDS: ACETAMINOPHEN TAB 325 MG TAB PO SCH (09:05)
[2024-01-25] MEDS: MEMANTINE 10 MG TAB PO SCH (09:05)
[2024-01-25 09:08] LABS: Basophils # (A) 0.02 X 10*3/uL (0.00-0.10); Basophils % (A) 0.2 %; Eosinophils % (A) 1.8 %; HCT 41.6 % (37.2-46.3); HGB 13.5 g/dL (12.0-15.0); Lymphocytes # (A) 1.14 X 10*3/uL (0.90-5.00); Lymphocytes % (A) 10.4 %; MCH 30.2 pg (27.0-32.0); MCHC 32.5 g/dL (32.0-37.0); MCV 93.1 FL (80.0-97.0); Mean Platelet Volume 11.3 FL (9.5-12.2); Monocytes # (A) 0.82 X 10*3/uL (0.20-1.00); Monocytes % (A) 7.5 %; NRBC Per 100 WBC 0 X 10*3/uL (0.00-0.01); Neutrophils # (A) 8.67 X 10*3/uL (1.80-7.70); Neutrophils % (A) 78.9 %; Platelet Count 139 X 10*3/uL (140-440); RBC 4.47 X 10*6/uL (4.10-5.20); RDW 13.5 % (11.5-14.5); WBC 10.98 X 10*3/uL (4.50-10.00)
[2024-01-25 09:20] LABS: ALT 40 U/L (8-44); AST 27 U/L (13-35); Albumin 3.6 g/dL (3.8-4.9); Albumin/Globulin Ratio 1.64 Ratio (1.60-3.17); Alkaline Phosphatase 64 U/L (41-126); BUN/Creat Ratio 24.67 Ratio (12.00-20.00); Blood Urea Nitrogen 14.8 mg/dL (9.0-27.0); Calcium 8.5 mg/dL (8.7-10.3); Carbon Dioxide 24.1 mmol/L (21.6-31.8); Chloride 98 mmol/L (96-109); Globulin 2.2 g/dL (1.6-3.3); Glucose 142 mg/dL (70-110); Phosphorus 3.1 mg/dL (2.4-5.1); Potassium 4.4 mmol/L (3.5-5.5); Sodium 133 mmol/L (135-145); Total Bilirubin 0.4 mg/dL (0.3-1.2); Total Protein 5.8 g/dL (6.2-8.2)
[2024-01-25] MEDS: traMADol 50 MG TAB PO PRN (10:40)
[2024-01-25 11:42] LABS: Glucose,Whole Blood 153 mg/dL (70-110)
[2024-01-25] MEDS: INSULIN ASPART (NovoLOG) 100 UNIT/ML VIAL SQ SCH (12:47)
--- NOTE | 2024-01-25 13:12 | P.CNOR ---
History of Present Illness - [facility] Consult date: 01/25/24 Consult reason: low back pain (T12 vertebral body compression fracture) History of present illness: Patient is a 79-year-old female who was admitted to [facility] with regards to generalized weakness and low back pain. Patient apparently had a fall about 2 weeks ago, she was evaluated by her primary care physician who ordered x-rays at that time. There was concern for compression deformities involving the T12 vertebral body. Patient was then seen in the hospital a few days later for complaints of low back pain. She was diagnosed with COVID around the same time. Patient has been discharged to home after the initial hospital visit, she does live with her . Patient has progressively gotten worse with regards to her appetite, generalized weakness and low back pain which prompted her to return to the hospital. Patient was admitted under internal medicine, they have continued the workup at this time. Our orthopedic team has been consulted due to the abnormalities noted on her recent scans in the thoracic spine. Patient was evaluated at bedside, she is resting in her hospital chair. Patient appears very out of it, she answers my questions very and accurately, she has very slow speech. I was able to contact the daughter regarding this patient and received most of the history. Patient has a known history of dementia. Patient has significantly declined over the last few weeks. Patient does live with her who is dealing with lung cancer. Apparently they have been utilizing an [id number] brace with minimal relief. Patient has been taking tramadol with minimal relief. My exam was very limited today due to patient's generalized medical state. 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 "Stomach nodules". Hx of an Arrythmia. Varicose veins. Dementia History of Any Multi-Drug Resistant Organisms: None Reported Past Surgical History: Cholecystectomy, Hysterectomy, Orthopedic Surgery, Tonsillectomy Additional Past Surgical History / Comment(s): Foot surgery, right ganglion cyst removal, right carpal tunnel surgery, eye lid tumor removed, skin cancer removed from neck, left eye surgery. Past Anesthesia/Blood Transfusion Reactions: Motion Sickness, Postoperative Nausea & Vomiting (PONV) Past Psychological History: No Psychological Hx Reported Smoking Status: Never smoker Past Alcohol Use History: None Reported Past Drug Use History: None Reported - Past Family History Father Family Medical History: Cancer Sister(s) Family Medical History: Cancer Medications and Allergies Home Medications Medication Instructions Recorded Confirmed Type Aspirin [Adult Low Dose Aspirin EC] 81 mg PO HS 10/19/17 01/24/24 History Atorvastatin [Lipitor] 20 mg PO HS 10/19/17 01/24/24 History Donepezil [Aricept] 10 mg PO HS 10/19/17 01/24/24 History Glucosamine-Chondr 500-400Mg 1 tab PO DAILY 10/19/17 01/24/24 History Losartan [Cozaar] 25 mg PO DAILY 10/19/17 01/24/24 History Pantoprazole [Protonix] 40 mg PO DAILY 10/19/17 01/24/24 History Raloxifene [Evista] 60 mg PO DAILY 10/19/17 01/24/24 History atenoloL 25 mg PO BID 10/19/17 01/24/24 History flaxseed oiL [[place]-3 Flaxseed Oil] 1,000 mg PO DAILY 10/19/17 01/24/24 History traMADol HCl [Ultram] 50 mg PO Q6H PRN #10 tab 12/11/20 01/24/24 Rx Acetaminophen [Tylenol Arthritis] 650 mg PO BID 01/24/24 01/24/24 History Ammonium Lactate Cream [Lac-Hydrin 1 applic TOPICAL DAILY PRN 01/24/24 01/24/24 History 12% Cream] Biotin Gummy 2500mcg 5,000 mcg PO DAILY 01/24/24 01/24/24 History Brexpiprazole [Rexulti] 2 mg PO HS 01/24/24 01/24/24 History Clobetasol Propionate [Temovate 1 applic TOPICAL BID PRN 01/24/24 01/24/24 History 0.05% Cream] Colestipol HCl 2 gm PO HS 01/24/24 01/24/24 History Cranberry Fruit Extract [Cranberry] 500 mg PO HS 01/24/24 01/24/24 History Escitalopram [Lexapro] 10 mg PO DAILY 01/24/24 01/24/24 History Fexofenadine HCl [Karlee Allergy] 180 mg PO DAILY 01/24/24 01/24/24 History Memantine [Namenda] 10 mg PO BID 01/24/24 01/24/24 History Multivit-Min/Iron/Folic/Lutein 1 tab PO DAILY 01/24/24 01/24/24 History [Centrum Silver Women Tablet] Mv-Mn/Om3/Dha/Epa/Fish/Lut/German 1 cap PO HS 01/24/24 01/24/24 History [Ocuvite Adult 50 Plus Softgel] Nystatin 100,000Unit/gm Cream 1 applic TOPICAL BID PRN 01/24/24 01/24/24 History [Mycostatin Cream] Sennosides [Senokot] 8.6 mg PO BID PRN 01/24/24 01/24/24 History Turmeric Root Extract [Turmeric] 500 mg PO HS 01/24/24 01/24/24 History Allergies Allergy/AdvReac Type Severity Reaction Status Date / Time ibuprofen [From Motrin] AdvReac Rash/Hives Verified 01/24/24 15:54 morphine AdvReac Nausea Verified 01/24/24 15:54 Physical Examination Gen: AOx3, NAD VSS stable at this time Integument: No open lesions or sores are visualized throughout the cervical, thoracic, lumbar spine Palpation: Patient demonstrates both paraspinal and midline tenderness in the lower thoracic spine with palpation ROM: Full range of motion in all major muscle groups of the bilateral upper and lower extremities, no focal deficits appreciated Sensory Exam: Senory exam to light touch is intact C5-T1 Senosry exam to light touch is intact L2-S1 Motor: 4/5 strength appreciated bilateral upper extremities with shoulder elevation, shoulder abduction, elbow extension, elbow flexion, wrist extension, wrist flexion, peoplesoft fscm developer 4/5 strength appreciated the bilateral lower extremities with hip flexion, knee extension, knee flexion, plantarflexion, dorsiflexion, EHL, FHL Reflexes: 2/4 in all UE and LE Negative Jin's bilaterally Negative clonus bilaterally Special Test: Negative straight leg raise bilaterally Results - Labs Labs: Abnormal Lab Results - Last 24 Hours (Table) 01/24/24 01/24/24 01/24/24 Range/Units 14:59 14:59 15:27 WBC 12.3 H (3.8-10.6) k/uL Plt Count (140-440) X 10*3/uL Immature Gran # (0.00-0.04) X 10*3/uL Neutrophils # 10.2 H (1.3-7.7) k/uL D-Dimer 3.30 H (<0.60) mg/L FEU Sodium 129 L (137-145) mmol/L BUN/Creatinine Ratio (12.00-20.00) Ratio Glucose 126 H (74-99) mg/dL POC Glucose (mg/dL) (70-110) mg/dL Calcium (8.7-10.3) mg/dL Total Protein 5.7 L (6.3-8.2) g/dL Albumin 3.2 L (3.5-5.0) g/dL Urine Appearance (Clear) Urine Protein (Negative) Urine Blood (Negative) Ur Leukocyte Esterase (Negative) Urine RBC (0-5) /hpf Urine WBC (0-5) /hpf Calcium Oxalate Crystal (None) /hpf Urine Mucus (None) /hpf 01/24/24 01/25/24 01/25/24 Range/Units 17:00 02:56 02:56 WBC 10.98 H (3.8-10.6) k/uL Plt Count 139 L (140-440) X 10*3/uL Immature Gran # 0.13 H (0.00-0.04) X 10*3/uL Neutrophils # 8.67 H (1.3-7.7) k/uL D-Dimer (<0.60) mg/L FEU Sodium 133 L (137-145) mmol/L BUN/Creatinine Ratio 24.67 H (12.00-20.00) Ratio Glucose 142 H (74-99) mg/dL POC Glucose (mg/dL) (70-110) mg/dL Calcium 8.5 L (8.7-10.3) mg/dL Total Protein 5.8 L (6.3-8.2) g/dL Albumin 3.6 L (3.5-5.0) g/dL Urine Appearance Cloudy H (Clear) Urine Protein 1+ H (Negative) Urine Blood Large H (Negative) Ur Leukocyte Esterase Moderate H (Negative) Urine RBC 141 H (0-5) /hpf Urine WBC 44 H (0-5) /hpf Calcium Oxalate Crystal Few H (None) /hpf Urine Mucus Many H (None) /hpf 01/25/24 01/25/24 Range/Units 05:45 11:41 WBC (3.8-10.6) k/uL Plt Count (140-440) X 10*3/uL Immature Gran # (0.00-0.04) X 10*3/uL Neutrophils # (1.3-7.7) k/uL D-Dimer (<0.60) mg/L FEU Sodium (137-145) mmol/L BUN/Creatinine Ratio (12.00-20.00) Ratio Glucose (74-99) mg/dL POC Glucose (mg/dL) 132 H 153 H (70-110) mg/dL Calcium (8.7-10.3) mg/dL Total Protein (6.3-8.2) g/dL Albumin (3.5-5.0) g/dL Urine Appearance (Clear) Urine Protein (Negative) Urine Blood (Negative) Ur Leukocyte Esterase (Negative) Urine RBC (0-5) /hpf Urine WBC (0-5) /hpf Calcium Oxalate Crystal (None) /hpf Urine Mucus (None) /hpf H & H 01/24/24 01/25/24 Range/Units 14:59 02:56 Hgb 13.6 13.5 (11.4-16.0) gm/dL Hct 41.3 41.6 (34.0-46.0) % Coagulation 01/24/24 Range/Units 14:59 INR 1.0 (<1.2) Result Diagrams: 01/25/24 02:56 01/25/24 02:56 Assessment and Plan Assessment: Low back pain T12 vetebral body AO A3 burst fracture Multilevel lumbar spondylosis Multilevel lumbar degenerative disc disease Dementia Generalized debility Other medical comorbidities Plan: Imaging: Lumbar x-rays were reviewed from 01/16/2024, this to include [address] scan without contrast of the abdomen, pelvis and chest were also reviewed from 01/24/2024. AO A3 incomplete burst fracture noted of the T12 vertebral body. Multilevel lumbar spondylosis is present with significant degenerative disc disease at multiple levels Plan: After discussion of symptoms along with reviewing images with my attending Dr. Martinez send in speaking with the patient's family, we are recommending initial conservative measures to continue. A TLSO brace will be ordered to aid in support. Would recommend continuing tramadol 50 mg every 6 hours. Could consider a higher dose pain medication, this to include [place], recommend caution due to patient's history of dementia PT/OT, weight-bear as tolerated with walker. Brace to be in place for attempt at longer distances, okay to not use for shorter distances GI and DVT prophylaxis per primary medical service Other medical specialty recommendations appreciated Will continue to follow patient during hospital stay Time with Patient: Less than 30
[2024-01-25 16:56] LABS: Glucose,Whole Blood 101 mg/dL (70-110)
[2024-01-25] MEDS ORDERED: HYDROcodone/APAP 5-325MG 1 EACH TAB PO PRN (17:11)
--- NOTE | 2024-01-25 17:12 | P.HPIM ---
History of Present Illness H&P Date: 01/25/24 Chief Complaint: Intractable back pain, status post fall This is an 79-year-old with past medical history significant for dementia, diabetes mellitus, hypertension, hyperlipidemia, skin cancer, osteoarthritis,PONV, recent COVID 2 weeks ago and multiple other medical issues, sustained a fall approximately 2 weeks ago. Lumbar spine x-ray on 916 reported degenerative disc changes, scoliosis within the lumbar spine, superior endplate wedge deformity at T12 of undetermined age. Patient's back pain, increased weakness and decreased appetite progressed and patient returned to the hospital with intractable back pain. Imaging reviewed. CTA reported no acute PE. CT of abdomen/pelvis reported left lobe liver hepatic cyst, 1.2 cm nonobstructing right renal stone within the renal pelvis. Review of Systems ROS Statement: Those systems with pertinent positive or pertinent negative responses have been documented in the HPI. ROS Other: All systems not noted in ROS Statement are negative. 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 "Stomach nodules". Hx of an Arrythmia. Varicose veins. Dementia History of Any Multi-Drug Resistant Organisms: None Reported Past Surgical History: Cholecystectomy, Hysterectomy, Orthopedic Surgery, Tonsillectomy Additional Past Surgical History / Comment(s): Foot surgery, right ganglion cyst removal, right carpal tunnel surgery, eye lid tumor removed, skin cancer removed from neck, left eye surgery. Past Anesthesia/Blood Transfusion Reactions: Motion Sickness, Postoperative Nausea & Vomiting (PONV) Past Psychological History: No Psychological Hx Reported Smoking Status: Never smoker Past Alcohol Use History: None Reported Past Drug Use History: None Reported - Past Family History Father Family Medical History: Cancer Sister(s) Family Medical History: Cancer Medications and Allergies Home Medications Medication Instructions Recorded Confirmed Type Aspirin [Adult Low Dose Aspirin EC] 81 mg PO HS 10/19/17 01/24/24 History Atorvastatin [Lipitor] 20 mg PO HS 10/19/17 01/24/24 History Donepezil [Aricept] 10 mg PO HS 10/19/17 01/24/24 History Glucosamine-Chondr 500-400Mg 1 tab PO DAILY 10/19/17 01/24/24 History Losartan [Cozaar] 25 mg PO DAILY 10/19/17 01/24/24 History Pantoprazole [Protonix] 40 mg PO DAILY 10/19/17 01/24/24 History Raloxifene [Evista] 60 mg PO DAILY 10/19/17 01/24/24 History atenoloL 25 mg PO BID 10/19/17 01/24/24 History flaxseed oiL [[place]-3 Flaxseed Oil] 1,000 mg PO DAILY 10/19/17 01/24/24 History traMADol HCl [Ultram] 50 mg PO Q6H PRN #10 tab 12/11/20 01/24/24 Rx Acetaminophen [Tylenol Arthritis] 650 mg PO BID 01/24/24 01/24/24 History Ammonium Lactate Cream [Lac-Hydrin 1 applic TOPICAL DAILY PRN 01/24/24 01/24/24 History 12% Cream] Biotin Gummy 2500mcg 5,000 mcg PO DAILY 01/24/24 01/24/24 History Brexpiprazole [Rexulti] 2 mg PO HS 01/24/24 01/24/24 History Clobetasol Propionate [Temovate 1 applic TOPICAL BID PRN 01/24/24 01/24/24 History 0.05% Cream] Colestipol HCl 2 gm PO HS 01/24/24 01/24/24 History Cranberry Fruit Extract [Cranberry] 500 mg PO HS 01/24/24 01/24/24 History Escitalopram [Lexapro] 10 mg PO DAILY 01/24/24 01/24/24 History Fexofenadine HCl [Karlee Allergy] 180 mg PO DAILY 01/24/24 01/24/24 History Memantine [Namenda] 10 mg PO BID 01/24/24 01/24/24 History Multivit-Min/Iron/Folic/Lutein 1 tab PO DAILY 01/24/24 01/24/24 History [Centrum Silver Women Tablet] Mv-Mn/Om3/Dha/Epa/Fish/Lut/German 1 cap PO HS 01/24/24 01/24/24 History [Ocuvite Adult 50 Plus Softgel] Nystatin 100,000Unit/gm Cream 1 applic TOPICAL BID PRN 01/24/24 01/24/24 History [Mycostatin Cream] Sennosides [Senokot] 8.6 mg PO BID PRN 01/24/24 01/24/24 History Turmeric Root Extract [Turmeric] 500 mg PO HS 01/24/24 01/24/24 History Allergies Allergy/AdvReac Type Severity Reaction Status Date / Time ibuprofen [From Motrin] AdvReac Rash/Hives Verified 01/24/24 15:54 morphine AdvReac Nausea Verified 01/24/24 15:54 Physical Exam Vitals: Vital Signs Temp Pulse Pulse Resp BP BP Pulse Ox 01/25/24 15:29 98.0 F 66 18 103/63 93 L 01/25/24 07:02 98.4 F 82 17 148/80 97 01/25/24 00:34 98 F 67 18 132/61 92 L 01/24/24 21:05 17 01/24/24 19:58 63 16 134/66 96 01/24/24 17:35 58 L 16 113/59 94 L Intake and Output 01/25/24 01/25/24 01/25/24 06:59 14:59 22:59 Other: # Voids 2 PHYSICAL EXAM: VITAL SIGNS: [Reviewed] GENERAL: Pleasant, alert and oriented x 2, sitting up in chair, no acute distress, fatigued. Conversing, recognizes PCP, Dr. Abdiel GRIMALDO: Atraumatic, normocephalic conjunctivae normal. eyes normal. NECK: Supple, no JVD. No thyroid enlargement. No LNs CARDIOVASCULAR: S1, S2 regular.. No murmur RESPIRATION: Unlabored, equal air entry, breath sounds diminished in the bases. No rhonchi or crackles. No bronchial breathing. ABDOMEN: Soft, nontender . No guarding. no masses palpable. No ascites, No hepatosplenomegaly.Bowel sounds heard. LEGS: No edema. no swelling. NERVOUS SYSTEM: Cranial N 2-12 grossly normal. Diffuse weakness, fine tremors, strength and sensation grossly intact.. Skin: Warm and dry no rash Results CBC & Chem 7: 01/25/24 02:56 01/25/24 02:56 Labs: Abnormal Lab Results - Last 24 Hours (Table) 01/24/24 01/25/24 01/25/24 Range/Units 17:00 02:56 02:56 WBC 10.98 H (4.50-10.00) X 10*3/uL Plt Count 139 L (140-440) X 10*3/uL Immature Gran # 0.13 H (0.00-0.04) X 10*3/uL Neutrophils # 8.67 H (1.80-7.70) X 10*3/uL Sodium 133 L (135-145) mmol/L BUN/Creatinine Ratio 24.67 H (12.00-20.00) Ratio Glucose 142 H (70-110) mg/dL POC Glucose (mg/dL) (70-110) mg/dL Calcium 8.5 L (8.7-10.3) mg/dL Total Protein 5.8 L (6.2-8.2) g/dL Albumin 3.6 L (3.8-4.9) g/dL Urine Appearance Cloudy H (Clear) Urine Protein 1+ H (Negative) Urine Blood Large H (Negative) Ur Leukocyte Esterase Moderate H (Negative) Urine RBC 141 H (0-5) /hpf Urine WBC 44 H (0-5) /hpf Calcium Oxalate Crystal Few H (None) /hpf Urine Mucus Many H (None) /hpf 01/25/24 01/25/24 Range/Units 05:45 11:41 WBC (4.50-10.00) X 10*3/uL Plt Count (140-440) X 10*3/uL Immature Gran # (0.00-0.04) X 10*3/uL Neutrophils # (1.80-7.70) X 10*3/uL Sodium (135-145) mmol/L BUN/Creatinine Ratio (12.00-20.00) Ratio Glucose (70-110) mg/dL POC Glucose (mg/dL) 132 H 153 H (70-110) mg/dL Calcium (8.7-10.3) mg/dL Total Protein (6.2-8.2) g/dL Albumin (3.8-4.9) g/dL Urine Appearance (Clear) Urine Protein (Negative) Urine Blood (Negative) Ur Leukocyte Esterase (Negative) Urine RBC (0-5) /hpf Urine WBC (0-5) /hpf Calcium Oxalate Crystal (None) /hpf Urine Mucus (None) /hpf Thrombosis Risk Factor Assmnt - Choose All That Apply Other Risk Factors: Yes Each Risk Factor Represents 3 Points: Age 75 years or older Thrombosis Risk Factor Assessment Total Risk Factor Score: 3 Thrombosis Risk Factor Assessment Level: Moderate Risk Assessment and Plan Assessment: Intractable back pain, secondary to recent fall approximately 2 weeks ago, unrelieved with tramadol and a brace they bought [id number]. Imaging suggests T12 vertebral body fracture Dehydration secondary to decreased oral intake secondary to the above Generalized weakness, secondary to all the above DDD. Recent COVID, approximately 2 weeks ago Dementia, advanced over the last couple years as per PCP Fine tremors, possible Parkinson's disease Diabetes mellitus Hypertension Hyperlipidemia Skin cancer OA History of PONV Plan: Continue on current medication regimen ,monitoring and symptomatic treatment. Gentle IV fluid hydration, pain management. Orthopedic spine consulted. PT/OT and case management consulted. Potential subacute rehab at discharge. The impression and plan of care has been dictated as directed. : I performed a history and examination of this patient, discussed the same with the dictator. I agree with the dictator's note ,documented as a scribe. Any additional findings or plans will be noted.
[2024-01-25 20:27] LABS: Glucose,Whole Blood 156 mg/dL (70-110)
[2024-01-25] MEDS: DONEPEZIL 10 MG TAB PO SCH (22:00)
[2024-01-25] MEDS: OLANZapine 5 MG TAB PO SCH (22:54)
[2024-01-26 06:01] LABS: Glucose,Whole Blood 122 mg/dL (70-110)
--- NOTE | 2024-01-26 09:49 | P.PN ---
Subjective Progress Note Date: 01/26/24 Principal diagnosis: T12 vertebral body compression fracture Patient was evaluated at bedside, she is sleeping in her hospital bed. Her mental state remains about the same as yesterday. She is very pleasant on exam. TLSO brace was present at bedside. Patient notes improvement in her back pain today. Denies headaches, lightheadedness, chest pain or shortness of breath Objective - Vital Signs Vital signs: Vital Signs Temp 97.6 F 01/26/24 07:09 Pulse 80 01/26/24 07:09 Resp 17 01/26/24 07:09 BP 142/97 01/26/24 07:09 Pulse Ox 95 01/26/24 09:14 FiO2 Intake & Output 01/25/24 01/26/24 01/26/24 18:59 06:59 18:59 Other: Voiding Method Toilet Diaper # Voids 2 3 - Exam Gen: AOx3, NAD VSS stable at this time Integument: No open lesions or sores are visualized throughout the cervical, thoracic, lumbar spine Palpation: Patient demonstrates both paraspinal and midline tenderness in the lower thoracic spine with palpation ROM: Full range of motion in all major muscle groups of the bilateral upper and lower extremities, no focal deficits appreciated Sensory Exam: Senory exam to light touch is intact C5-T1 Senosry exam to light touch is intact L2-S1 Motor: 4/5 strength appreciated bilateral upper extremities with shoulder elevation, shoulder abduction, elbow extension, elbow flexion, wrist extension, wrist flexion, social media director 4/5 strength appreciated the bilateral lower extremities with hip flexion, knee extension, knee flexion, plantarflexion, dorsiflexion, EHL, FHL Reflexes: 2/4 in all UE and LE Negative Jin's bilaterally Negative clonus bilaterally Special Test: Negative straight leg raise bilaterally - Labs CBC & Chem 7: 01/25/24 02:56 01/25/24 02:56 Labs: Abnormal Lab Results - Last 24 Hours (Table) 01/24/24 01/25/24 01/25/24 Range/Units 14:59 11:41 20:24 POC Glucose (mg/dL) 153 H 156 H (70-110) mg/dL Hemoglobin A1c 7.3 H (<=6.0) % 01/26/24 Range/Units 05:52 POC Glucose (mg/dL) 122 H (70-110) mg/dL Hemoglobin A1c (<=6.0) % Assessment and Plan Assessment: Low back pain T12 vetebral body AO A3 burst fracture Multilevel lumbar spondylosis Multilevel lumbar degenerative disc disease Dementia Generalized debility Other medical comorbidities Plan: Plan: Continue conservative measures Pain control, continue tramadol TLSO brace when walking longer distance, does not need to be worn in bed or while sitting in chair PT/OT, weight-bear as tolerated with walker. Brace to be in place for attempt at longer distances, okay to not use for shorter distances GI and DVT prophylaxis per primary medical service Other medical specialty recommendations appreciated Orthopedically patient remains stable, recommend follow-up in the outpatient setting. Please contact our service with any acute questions regarding this patient Time with Patient: Less than 30
[2024-01-26 11:23] LABS: Glucose,Whole Blood 146 mg/dL (70-110)
--- NOTE | 2024-01-26 16:05 | P.PN ---
Subjective Progress Note Date: 01/26/24 H&P Date: 01/25/24 Chief Complaint: Intractable back pain, status post fall This is an 79-year-old with past medical history significant for dementia, diabetes mellitus, hypertension, hyperlipidemia, skin cancer, osteoarthritis,PONV, recent COVID 2 weeks ago and multiple other medical issues, sustained a fall approximately 2 weeks ago. Lumbar spine x-ray on 916 reported degenerative disc changes, scoliosis within the lumbar spine, superior endplate wedge deformity at T12 of undetermined age. Patient's back pain, increased weakness and decreased appetite progressed and patient returned to the hospital with intractable back pain. Imaging reviewed. CTA reported no acute PE. CT of abdomen/pelvis reported left lobe liver hepatic cyst, 1.2 cm nonobstructing right renal stone within the renal pelvis. 01/26/2024 patient is up to the bathroom with assistance, reports pain better controlled, slept well. Evaluated by orthopedic spine yesterday recommending conservative management .LSO brace at bedside. Anxious during the night, received Zyprexa. Maintaining O2 sats in the 90s on room air.Afebrile. Blood sugars controlled. Objective - Vital Signs Vital signs: Vital Signs Temp 97.5 F L 01/26/24 12:54 Pulse 64 01/26/24 12:54 Resp 16 01/26/24 12:54 BP 106/52 01/26/24 12:54 Pulse Ox 97 01/26/24 12:54 FiO2 Intake & Output 01/25/24 01/26/24 01/26/24 18:59 06:59 18:59 Other: Voiding Method Toilet Toilet Diaper Diaper # Voids 2 3 1 - Exam VITAL SIGNS: [Reviewed] GENERAL: Pleasant, alert and oriented x 2, sitting up in chair, no acute distress. HEENT: Atraumatic, normocephalic conjunctivae normal. eyes normal. NECK: Supple, no JVD. No thyroid enlargement. No LNs CARDIOVASCULAR: S1, S2 regular. No murmur RESPIRATION: Unlabored, equal air entry, breath sounds diminished in the bases. No rhonchi or crackles. No bronchial breathing. ABDOMEN: Soft, nontender . No guarding. no masses palpable. No ascites, No hepatosplenomegaly.Bowel sounds heard. LEGS: No edema. no swelling. NERVOUS SYSTEM: Cranial N 2-12 grossly normal. Diffuse weakness, fine tremors, strength and sensation grossly intact.. Skin: Warm and dry no rash - Labs CBC & Chem 7: 01/25/24 02:56 01/25/24 02:56 Labs: Abnormal Lab Results - Last 24 Hours (Table) 01/24/24 01/25/24 01/26/24 Range/Units 14:59 20:24 05:52 POC Glucose (mg/dL) 156 H 122 H (70-110) mg/dL Hemoglobin A1c 7.3 H (<=6.0) % 01/26/24 Range/Units 11:21 POC Glucose (mg/dL) 146 H (70-110) mg/dL Hemoglobin A1c (<=6.0) % Assessment and Plan Assessment: Intractable back pain, secondary to recent fall approximately 2 weeks ago, unrelieved with tramadol and a brace they bought [id number]. Imaging suggests T12 vertebral body fracture Dehydration secondary to decreased oral intake secondary to the above Generalized weakness, secondary to all the above DDD. Recent COVID, approximately 2 weeks ago Dementia, advanced over the last couple years as per PCP Fine tremors, possible Parkinson's disease Diabetes mellitus Hypertension Hyperlipidemia Skin cancer OA History of PONV Plan: Continue on current medication regimen ,monitoring and symptomatic treatment. Conservative management, LSO brace. pain management. Discharge planning in progress for subacute rehab at discharge, pending clearance per orthopedic spine. The impression and plan of care has been dictated as directed. : I performed a history and examination of this patient, discussed the same with the dictator. I agree with the dictator's note ,documented as a scribe. Any additional findings or plans will be noted.
[2024-01-26 17:00] LABS: Glucose,Whole Blood 147 mg/dL (70-110)
[2024-01-26 20:46] LABS: Glucose,Whole Blood 131 mg/dL (70-110)
[2024-01-27 06:14] LABS: Glucose,Whole Blood 117 mg/dL (70-110)
--- NOTE | 2024-01-27 08:28 | P.DS ---
Providers Date of admission: 01/24/24 17:07 Expected date of discharge: 01/27/24 Attending physician: Roosevelt Meadows Consults: 01/25/24 11:18 Consult Physician Routine Consulting Provider: Bonifacio Smith Consult Reason/Comments: back pain, recent fall, xray 01/15 Do you want consulting provider notified?: Yes Primary care physician: Roosevelt Meadows Hospital Course: Final Diagnoses: Intractable back pain, secondary to recent fall approximately 2 weeks ago, unrelieved with tramadol and a brace they bought [id number]. Imaging suggests T12 vertebral body fracture Dehydration secondary to decreased oral intake secondary to the above Generalized weakness, secondary to all the above DDD. Recent COVID, approximately 2 weeks ago Dementia, advanced over the last couple years as per PCP Fine tremors, possible Parkinson's disease Diabetes mellitus Hypertension Hyperlipidemia Skin cancer OA History of PONV Hospital course: This is an 79-year-old with past medical history significant for dementia, diabetes mellitus, hypertension, hyperlipidemia, skin cancer, osteoarthritis,PONV, recent COVID 2 weeks ago and multiple other medical issues, sustained a fall approximately 2 weeks ago. Lumbar spine x-ray on reported degenerative disc changes, scoliosis within the lumbar spine, superior endplate wedge deformity at T12 of undetermined age. Patient's back pain, increased weakness and decreased appetite progressed and patient returned to the hospital with intractable back pain. Imaging reviewed. CTA reported no acute PE. CT of abdomen/pelvis reported left lobe liver hepatic cyst, 1.2 cm nonobstructing right renal stone within the renal pelvis. 01/26/2024 patient is up to the bathroom with assistance, reports pain better controlled, slept well. Evaluated by orthopedic spine yesterday recommending conservative management .LSO brace at bedside. Anxious during the night, received Zyprexa. Maintaining O2 sats in the 90s on room air.Afebrile. Blood sugars controlled. Significant clinical improvement. Cleared by orthopedic spine for discharge. Denies chest pain, palpitations or shortness of breath. Patient will be discharged to [facility] subacute rehab today in a stable condition with guarded prognosis. The impression and plan of care has been dictated as directed. : I performed a history and examination of this patient, discussed the same with the dictator. I agree with the dictator's note ,documented as a scribe. Any additional findings or plans will be noted. Patient Condition at Discharge: Stable Plan - Discharge Summary Discharge Rx Participant: No New Discharge Prescriptions: New INSULIN LISPRO (HumaLOG) [humaLOG] 0 unit SQ ACHS #10 ml HYDROcodone/APAP 5-325MG [[place] 5-325] 1 each PO Q6HR PRN #12 tab PRN Reason: Pain OLANZapine [ZyPREXA] 5 mg PO HS #3 tab Continue Glucosamine-Chondr 500-400Mg 1 tab PO DAILY Losartan [Cozaar] 25 mg PO DAILY Donepezil [Aricept] 10 mg PO HS Atorvastatin [Lipitor] 20 mg PO HS Raloxifene [Evista] 60 mg PO DAILY Pantoprazole [Protonix] 40 mg PO DAILY flaxseed oiL [[place]-3 Flaxseed Oil] 1,000 mg PO DAILY atenoloL 25 mg PO BID Aspirin [Adult Low Dose Aspirin EC] 81 mg PO HS Turmeric Root Extract [Turmeric] 500 mg PO HS Cranberry Fruit Extract [Cranberry] 500 mg PO HS Biotin Gummy 2500mcg 5,000 mcg PO DAILY Fexofenadine HCl [Karlee Allergy] 180 mg PO DAILY Colestipol HCl 2 gm PO HS Memantine [Namenda] 10 mg PO BID Escitalopram [Lexapro] 10 mg PO DAILY Clobetasol Propionate [Temovate 0.05% Cream] 1 applic TOPICAL BID PRN PRN Reason: Dry Skin Ammonium Lactate Cream [Lac-Hydrin 12% Cream] 1 applic TOPICAL DAILY PRN PRN Reason: Dry Skin Multivit-Min/Iron/Folic/Lutein [Centrum Silver Women Tablet] 1 tab PO DAILY Sennosides [Senokot] 8.6 mg PO BID PRN PRN Reason: Constipation Mv-Mn/Om3/Dha/Epa/Fish/Lut/German [Ocuvite Adult 50 Plus Softgel] 1 cap PO HS Acetaminophen [Tylenol Arthritis] 650 mg PO BID Discontinued traMADol HCl [Ultram] 50 mg PO Q6H PRN #10 tab PRN Reason: Pain Brexpiprazole [Rexulti] 2 mg PO HS Nystatin 100,000Unit/gm Cream [Mycostatin Cream] 1 applic TOPICAL BID PRN PRN Reason: Rash Discharge Medication List Aspirin [Adult Low Dose Aspirin EC] 81 mg PO HS 10/19/17 [History] Atorvastatin [Lipitor] 20 mg PO HS 10/19/17 [History] Donepezil [Aricept] 10 mg PO HS 10/19/17 [History] Glucosamine-Chondr 500-400Mg 1 tab PO DAILY 10/19/17 [History] Losartan [Cozaar] 25 mg PO DAILY 10/19/17 [History] Pantoprazole [Protonix] 40 mg PO DAILY 10/19/17 [History] Raloxifene [Evista] 60 mg PO DAILY 10/19/17 [History] atenoloL 25 mg PO BID 10/19/17 [History] flaxseed oiL [[place]-3 Flaxseed Oil] 1,000 mg PO DAILY 10/19/17 [History] Acetaminophen [Tylenol Arthritis] 650 mg PO BID 01/24/24 [History] Ammonium Lactate Cream [Lac-Hydrin 12% Cream] 1 applic TOPICAL DAILY PRN 01/24/24 [History] Biotin Gummy 2500mcg 5,000 mcg PO DAILY 01/24/24 [History] Clobetasol Propionate [Temovate 0.05% Cream] 1 applic TOPICAL BID PRN 01/24/24 [History] Colestipol HCl 2 gm PO HS 01/24/24 [History] Cranberry Fruit Extract [Cranberry] 500 mg PO HS 01/24/24 [History] Escitalopram [Lexapro] 10 mg PO DAILY 01/24/24 [History] Fexofenadine HCl [Karlee Allergy] 180 mg PO DAILY 01/24/24 [History] Memantine [Namenda] 10 mg PO BID 01/24/24 [History] Multivit-Min/Iron/Folic/Lutein [Centrum Silver Women Tablet] 1 tab PO DAILY 01/24/24 [History] Mv-Mn/Om3/Dha/Epa/Fish/Lut/German [Ocuvite Adult 50 Plus Softgel] 1 cap PO HS 01/24/24 [History] Sennosides [Senokot] 8.6 mg PO BID PRN 01/24/24 [History] Turmeric Root Extract [Turmeric] 500 mg PO HS 01/24/24 [History] HYDROcodone/APAP 5-325MG [[place] 5-325] 1 each PO Q6HR PRN #12 tab 01/26/24 [Rx] INSULIN LISPRO (HumaLOG) [humaLOG] 0 unit SQ ACHS #10 ml 01/26/24 [Rx] OLANZapine [ZyPREXA] 5 mg PO HS #3 tab 01/26/24 [Rx] Follow up Appointment(s)/Referral(s): Roosevelt Meadows DO [Primary Care Provider] - 1 Week (after dc from [facility] ) Sharron Velasquez NPC [Nurse Practitioner] - 2 Weeks Geno Pelaez [NON-STAFF] - As Needed (TLSO brace) Activity/Diet/Wound Care/Special Instructions: [facility] subacute rehab CBC, BMP in 3 days Orthopedic discharge instructions: 1. TLSO brace and walker longer distances 2. Weight-bear as tolerated 3. Recommend walker at all times 4. Plan for follow-up at [facility] in 2 weeks for clinical and x-ray evaluation Discharge Disposition: TRANSFER TO SNF/ECF
[2024-01-27 09:13] VITALS: BP 111/66; PULSE 67; RESP 16; TEMP 98.3
[2024-01-27 11:44] LABS: Glucose,Whole Blood 115 mg/dL (70-110)
--- NOTE | 2024-02-12 15:16 | CDI ---
Documentation Clarification Form Date: 02/12/2024 03:03:56 PM From: Roma Jesus Phone: Admit Date: 01/24/2024 05:07:00 PM Patient Name: Julianna Herman Visit Number: [id number] Discharge Date: 01/27/2024 01:28:00 PM ATTENTION: The Clinical Documentation Specialists (CDI) and [facility] Coding Staff appreciate your assistance in clarifying documentation. Please respond to the clarification below the line at the bottom and electronically sign. The CDI & [facility] Coding staff will review the response and follow-up if needed. Please note: Queries are made part of the Legal Health Record. If you have any questions, please contact the author of this message via ITS. Doctor/Provider: Roosevelt Meadows Conflicting documentation has been noted. Clarification regarding the vertebral body fracture is requested. T12 vertebral body compression fracture per Progress Note 01/25 and 01/24 Consult L-spine fracture per ED, H&P, Progress Note 01/25 History/Risk Factors: 79yo F, dementia, IDDMII,HTN, HLD, Hx skin Cx, OA, left lobe liverhepatic cyst, nonobstructing right renal stone,recentCOVID Clinical Indications X-Ray: Lumbarspine x-desire 916 reported degenerative discchanges,scoliosiswithin the lumbar spine, superior endplate wedgedeformityat T12 of undetermined age Treatment: need for betterpaincontrol. Continue on current medication regimen, monitoringand symptomatic treatment. Conservative management, LSO brace. Painmanagement. Discharge planning in progress for subacute rehab at discharge,pendingclearanceper orthopedic spine. Please clarify the location and type of fracture, if known: [X] AO A3 incompleteburst fracturenoted of the T12 vertebral body [ ] L-spine fracture (Please specify vertebral body): [ ] Other please specify [ ] Unable to determine MTDD
== END 2024-01-27 13:28 | DRG 552 ==
LOC: EC 14:15 → 4SSUR 17:07
PROVIDERS: ADMIT Family Medicine; ATTEND Family Medicine
DX: S22.081A Stable burst fracture of T11-T12 vertebra, initial encounter for closed fracture (principal); M41.86 Other forms of scoliosis, lumbar region; K76.89 Other specified diseases of liver; F02.80 Dementia in other diseases classified elsewhere, unspecified severity, without behavioral disturbance, psychotic disturbance, mood disturbance, and anxiety; G20.A1 Parkinson's disease without dyskinesia, without mention of fluctuations; E11.9 Type 2 diabetes mellitus without complications; Z79.4 Long term (current) use of insulin; I10 Essential (primary) hypertension; M51.36 Other intervertebral disc degeneration, lumbar region; E86.0 Dehydration; M43.8X4 Other specified deforming dorsopathies, thoracic region; E78.5 Hyperlipidemia, unspecified; M19.90 Unspecified osteoarthritis, unspecified site; M47.816 Spondylosis without myelopathy or radiculopathy, lumbar region; N20.0 Calculus of kidney; R53.81 Other malaise; W19.XXXA Unspecified fall, initial encounter; Z79.82 Long term (current) use of aspirin; Z79.899 Other long term (current) drug therapy; Z86.16 Personal history of COVID-19; Z85.828 Personal history of other malignant neoplasm of skin
CPT/HCPCS: 36415; 71046; 71275; 74177; 80053; 81001; 83036; 83605; 83735; 83880; 84100; 84484; 85025; 85379; 85610; 85730; 93005; 94760; 96361; 96374; 99285

== ENCOUNTER 2024-01-29 10:11 | Inpatient (IN) | payer MEDICARE, BC ==
[2024-01-29 10:42] LABS: Basophils % (A) 0 %; Eosinophils # (A) 0.1 k/uL (0-0.7); Eosinophils % (A) 2 %; HCT 40.1 % (34.0-46.0); HGB 12.8 gm/dL (11.4-16.0); Hypochromasia Slight; Lymphocytes # (A) 1.3 k/uL (1.0-4.8); Lymphocytes % (A) 22 %; MCH 29.8 pg (25.0-35.0); MCHC 31.8 g/dL (31.0-37.0); MCV 93.5 fL (80.0-100.0); Mean Platelet Volume 7.3; Monocytes # (A) 0.5 k/uL (0-1.0); Monocytes % (A) 8 %; Neutrophils # (A) 3.7 k/uL (1.3-7.7); Neutrophils % (A) 63 %; Platelet Count 197 k/uL (150-450); RBC 4.29 m/uL (3.80-5.40); RDW 13.7 % (11.5-15.5); WBC 5.9 k/uL (3.8-10.6)
[2024-01-29 10:53] LABS: ALT 28 U/L (4-34); AST 26 U/L (14-36); African American GFR (CKD) >90 (>60 ml/min/1.73 sqM); Albumin 3.3 g/dL (3.5-5.0); Alkaline Phosphatase 68 U/L (38-126); Anion Gap 10 mmol/L; Blood Urea Nitrogen 8 mg/dL (7-17); Calcium 9.2 mg/dL (8.4-10.2); Carbon Dioxide 22 mmol/L (22-30); Chloride 108 mmol/L (98-107); Glucose 156 mg/dL (74-99); Lipase 53 U/L (23-300); Magnesium 1.7 mg/dL (1.6-2.3); Non-African American GFR(CKD) >90 (>60 ml/min/1.73 sqM); Potassium 3.9 mmol/L (3.5-5.1); Sodium 140 mmol/L (137-145); Total Bilirubin 0.4 mg/dL (0.2-1.3); Total Protein 5.9 g/dL (6.3-8.2)
[2024-01-29 10:59] LABS: NT-Pro-B-Type Natriuretic Pept 2790 pg/mL
--- NOTE | 2024-01-29 11:02 | XR ---
EXAMINATION TYPE: XR chest 2V DATE OF EXAM: 01/29/2024 COMPARISON: 01/24/2024 HISTORY: Chest pain TECHNIQUE: Frontal and lateral views of the chest are obtained. FINDINGS: There is no focal air space opacity, pleural effusion, or pneumothorax seen. The cardiac silhouette size is within normal limits. The osseous structures are intact. IMPRESSION: No acute cardiopulmonary process. [facility], , 01/29/2024 11:00 AM
[2024-01-29] MEDS: SODIUM CHLORIDE 0.9% 1,000 ML IV STA ×2 (11:09→12:31)
[2024-01-29] MEDS: ASPIRIN 81 MG PO STA (11:10)
[2024-01-29] MEDS: METOPROLOL TARTRATE 5 MG/5 ML VIAL IVP STA ×2 (11:10→12:31)
[2024-01-29 11:28] LABS: Appearance,Urine Clear (Clear); Bacteria,Urine Rare /hpf; Bilirubin,Urine Negative (Negative); Blood,Urine Negative (Negative); Color,Urine Colorless; Glucose,Urine (UA) Negative (Negative); Ketones,Urine Negative (Negative); Leukocyte Esterase,Urine Small (Negative); Mucus,Urine Occasional /hpf; Nitrite,Urine Negative (Negative); PH, Urine 5.5 (5.0-8.0); Protein,Urine Trace (Negative); RBC,Urine 2 /hpf (0-5); Specific Gravity,Urine 1.009 (1.001-1.035); Urobilinogen,Urine <2.0 mg/dL (<2.0); WBC,Urine 9 /hpf (0-5)
[2024-01-29] MEDS: METOPROLOL TARTRATE 25 MG TAB PO STA (11:40)
[2024-01-29 12:13] LABS: Partial Thromboplastin Time 21.6 sec (22.0-30.0)
--- NOTE | 2024-01-29 13:37 | CT ---
EXAMINATION TYPE: CT brain wo con DATE OF EXAM: 01/29/2024 COMPARISON: 10/31/2021 HISTORY: FALLING DOWN CT DLP: 1110 mGycm Automated exposure control for dose reduction was used. Findings: The ventricles, basal cisterns and sulci over the convexities are moderately enlarged. There is mild- to-moderate decreased density in the periventricular white matter consistent with chronic ischemic wh ite matter demyelination. There is no mass effect or shift of the midline structures. There is no acute intra or extra-axial hemorrhage. The posterior fossa including the brainstem, fourth ventricle and cerebellar pontine angles appear no rmal. Intraorbital contents appear normal and symmetric. Visualized paranasal sinuses and mastoid air cells are well aerated. The calvarium is intact. IMPRESSION: 1. No acute bleed or mass effect. 2. Senescent atrophy and ischemic white matter changes as described above. No change compared to prev ious. [facility], , 01/29/2024 1:34 PM
--- NOTE | 2024-01-29 13:44 | CT ---
EXAMINATION TYPE: CT chest angio for PE DATE OF EXAM: 01/29/2024 COMPARISON: 01/24/2024 HISTORY: FALLING DOWN CT DLP: 1412 mGycm Automated exposure control for dose reduction was used. CONTRAST: CT Chest for pulmonary embolism performed with with IV Contrast, patient injected with 100ml mL of Is ovue 370. FINDINGS: LUNGS: The lungs are grossly clear, there is no concerning parenchymal mass or nodule identified. T here is no pleural effusion or pneumothorax seen. The tracheobronchial tree is patent. MEDIASTINUM: There is satisfactory enhancement of the pulmonary artery and its branches. There is a s mall string-like filling defect in the left main pulmonary artery and few scattered small filling def ects in the segmental pulmonary arteries of the left upper lobe. There is no evidence of right heart strain. OTHER: No additional significant abnormality is seen. IMPRESSION: Findings consistent with left main and segmental upper lobe pulmonary artery emboli as described abov e. No definite evidence of right heart strain. Follow-up recommendations for incidental pulmonary nodules are per [employer] or [employer]. [facility], , 01/29/2024 1:42 PM
[2024-01-29] MEDS ORDERED: HEPARIN SODIUM 1,000 UN/ML (10ML VL) IV PRN (13:52)
[2024-01-29] MEDS ORDERED: ONDANSETRON 4 MG/2 ML VIAL IVP PRN (14:03)
[2024-01-29] MEDS ORDERED: NALOXONE 0.4 MG/ML 1 ML VIAL IV PRN (14:03)
--- NOTE | 2024-01-29 14:22 | ED ---
General Adult HPI - General Chief complaint: Arrhythmia/Palpitations Stated complaint: A-fib Time Seen by Provider: 01/29/24 10:20 Source: patient, RN notes reviewed, old records reviewed Mode of arrival: EMS Limitations: no limitations - History of Present Illness Initial comments: Patient is a 79-year-old female who presents emergency department complaining of new onset atrial fibrillation with RVR. Was transferred from her nursing facili by Dr. Ramirez. Patient has a past medical history remarkable for diabetes, hypertension, hyperlipidemia. No history of fibrillation in the past. Recent history of falls as well as COVID diagnosis. Patient has a history of dementia as well. Currently is asymptomatic. Denies chest pain or shortness of breath. Denies abdominal pain, nausea, vomiting. Is uncertain why she is here exactly. Presents for further evaluation at this time. On blood thinners at this time. Denies lower extremity edema. - Related Data Home Medications Medication Instructions Recorded Confirmed Aspirin [Adult Low Dose Aspirin EC] 81 mg PO HS 10/19/17 01/29/24 Atorvastatin [Lipitor] 20 mg PO HS 10/19/17 01/29/24 Donepezil [Aricept] 10 mg PO DAILY 10/19/17 01/29/24 Glucosamine-Chondr 500-400Mg 1 tab PO DAILY 10/19/17 01/29/24 Losartan [Cozaar] 25 mg PO DAILY 10/19/17 01/29/24 Raloxifene [Evista] 60 mg PO DAILY 10/19/17 01/29/24 atenoloL 25 mg PO BID 10/19/17 01/29/24 Acetaminophen [Tylenol Arthritis] 650 mg PO BID 01/24/24 01/29/24 Ammonium Lactate Cream [Lac-Hydrin 1 applic TOPICAL DAILY PRN 01/24/24 01/29/24 12% Cream] Clobetasol Propionate [Temovate 1 applic TOPICAL BID PRN 01/24/24 01/29/24 0.05% Cream] Colestipol HCl 2 gm PO HS 01/24/24 01/29/24 Escitalopram [Lexapro] 10 mg PO DAILY 01/24/24 01/29/24 Fexofenadine HCl [Karlee Allergy] 180 mg PO DAILY 01/24/24 01/29/24 Memantine [Namenda] 10 mg PO BID 01/24/24 01/29/24 Multivit-Min/Iron/Folic/Lutein 1 tab PO DAILY 01/24/24 01/29/24 [Centrum Silver Women Tablet] Mv-Mn/Om3/Dha/Epa/Fish/Lut/German 1 cap PO HS 01/24/24 01/29/24 [Ocuvite Adult 50 Plus Softgel] Sennosides [Senokot] 8.6 mg PO BID PRN 01/24/24 01/29/24 Biotin 5,000 mcg PO DAILY 01/29/24 01/29/24 Cranberry 450mg 450 mg PO HS 01/29/24 01/29/24 INSULIN LISPRO (HumaLOG) [humaLOG] See Protocol SQ ACHS 01/29/24 01/29/24 Omeprazole 20 mg PO DAILY 01/29/24 01/29/24 Previous Rx's Medication Instructions Recorded HYDROcodone/APAP 5-325MG [[place] 1 each PO Q6HR PRN #12 tab 01/26/24 5-325] OLANZapine [ZyPREXA] 5 mg PO HS #3 tab 01/26/24 Allergies Allergy/AdvReac Type Severity Reaction Status Date / Time ibuprofen [From Motrin] AdvReac Rash/Hives Verified 01/29/24 12:25 morphine AdvReac Nausea Verified 01/29/24 12:25 Review of Systems ROS Statement: Those systems with pertinent positive or pertinent negative responses have been documented in the HPI. Review of Systems: CONST: Denies fever EYES: Denies blurry vision ENT: Denies nasal congestion C/V: Denies Chest pain RESP: Denies shortness of breath GI: Denies abdominal pain : Denies dysuria SKIN: Denies rash. MSK: Denies joint pain. NEURO: Denies headache ROS Other: All systems not noted in ROS Statement are negative. 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 "Stomach nodules". Hx of an Arrythmia. Varicose veins. Dementia History of Any Multi-Drug Resistant Organisms: None Reported Past Surgical History: Cholecystectomy, Hysterectomy, Orthopedic Surgery, Tonsillectomy Additional Past Surgical History / Comment(s): Foot surgery, right ganglion cyst removal, right carpal tunnel surgery, eye lid tumor removed, skin cancer removed from neck, left eye surgery. Past Anesthesia/Blood Transfusion Reactions: Motion Sickness, Postoperative Nausea & Vomiting (PONV) Past Psychological History: No Psychological Hx Reported Smoking Status: Never smoker Past Alcohol Use History: None Reported Past Drug Use History: None Reported - Past Family History Father Family Medical History: Cancer Sister(s) Family Medical History: Cancer General Exam - General Exam Comments Initial Comments: General: Appears in no acute distress. HEAD: Normal with no signs of head trauma. EYES: PERRLA, EOMI, conjunctiva normal, no discharge. ENT: Hearing grossly intact, normal oropharynx. RESPIRATORY: Clear breath sounds bilaterally. No wheezes, rales, or rhonchi. C/V: Irregular rate and rhythm. S1 and S2 auscultated, no edema, peripheral pulses 2+ and intact throughout ABD: Abd is soft, nontender, nondistended EXT: Normal range of motion, no obvious deformity SKIN: No rashes or lesions observed on exposed skin. NEURO: Alert and oriented x 4 with no focal deficits. Limitations: no limitations Course Vital Signs 01/29/24 01/29/24 01/29/24 10:20 10:26 10:28 Temperature 97.7 F Pulse Rate 124 H 129 H Pulse Rate [ 124 H Attorney Recruiter ] Respiratory 20 20 Rate Blood Pressure 122/65 116/56 O2 Sat by Pulse 98 98 Oximetry 01/29/24 01/29/24 01/29/24 10:32 11:15 11:35 Temperature Pulse Rate 109 H 110 H Pulse Rate [ Attorney Recruiter ] Respiratory 20 20 20 Rate Blood Pressure 98/73 127/84 O2 Sat by Pulse 98 98 Oximetry Medical Decision Making - Medical Decision Making Was pt. sent in by a medical professional or institution (, PA, BUSINESS LAWYER, urgent care, hospital, or [facility]...) When possible be specific @ -No Did you speak to anyone other than the patient for history (EMS, parent, family, police, friend...)? What history was obtained from this source @ -No Did you review nursing and triage notes (agree or disagree)? Why? @ -I reviewed and agree with nursing and triage notes Were old charts reviewed (outside hosp., previous admission, EMS record, old EKG, old radiological studies, urgent care reports/EKG's, [facility] records)? Report findings @ -EKG reviewed from earlier this month 01/24/2024. Today new onset atrial fibrillation. Differential Diagnosis (chest pain, altered mental status, abdominal pain women, abdominal pain men, vaginal bleeding, weakness, fever, dyspnea, syncope, headache, dizziness, GI bleed, back pain, seizure, CVA, palpatations, mental health, musculoskeletal)? @ -ACS, PE, new onset A-fib, dehydration, infection. This list is not all inclusive. EKG interpreted by me (3pts min.). @ -As above X-rays interpreted by me (1pt min.). @ -Chest x-ray reveals no obvious acute cardiopulmonary process. CT interpreted by me (1pt min.). @ -Brain reveals no obvious acute intracranial process. CT angiogram of the chest to evaluate for pulmonary embolism positive for PE in the left main and segmental upper lobe artery. No evidence of right heart strain. U/S interpreted by me (1pt. min.). @ -None done What testing was considered but not performed or refused? (CT, X-rays, U/S, l abs)? Why? @ -None What meds were considered but not given or refused? Why? @ -None Did you discuss the management of the patient with other professionals (professionals i.e. , PA, BUSINESS LAWYER, lab, RT, psych nurse, social staff worker, hourly sign language interpreter, teacher, staff readiness officer, protective services case worker)? Give summary @ -Discussed with Dr. Radford, on-call vascular surgeon for [facility] evaluation who is in agreement with plan for echo. No evidence of right heart strain on CT. Indeterminant troponin. Elevated BNP, which could be secondary to A-fib. He was in agreement with this plan. I spoke with the typesetters printer on-call Dr. Gray and who was in agreement the plan for management with the IV heparin, echo, involvement of vascular surgery as well as admission to stepdown at this time. I spoke with the admitting provider, Dr. Beach who accepted the admission. Was smoking cessation discussed for >3mins.? @ -No Was critical care preformed (if so, how long)? @ -Yes, 44 minutes. Were there social determinants of health that impacted care today? How? (Homelessness, low income, unemployed, alcoholism, drug addiction, transportation, low edu. Level, literacy, decrease access to med. care, retirement, rehab)? @ -No Was there de-escalation of care discussed even if they declined (Discuss DNR or withdrawal of care, Hospice)? DNR status @ -No What co-morbidities impacted this encounter? (DM, HTN, Smoking, COPD, CAD, Ca ncer, CVA, ARF, Chemo, Hep., AIDS, mental health diagnosis, sleep apnea, morbid obesity)? @ -None Was patient admitted / discharged? Hospital course, mention meds given and route, prescriptions, significant lab abnormalities, going to OR and other pertinent info. @ -Patient presents for new onset atrial fibrillation with RVR. Vital signs otherwise are within acceptable limits. Patient received multiple IV fluid boluses, and we will treat her with IV metoprolol as she is on atenolol at baseline. Patient was in agreement this plan. Patient's EKG shows A-fib with RVR with no obvious acute ischemic changes. Laboratory studies remarkable for elevated D-dimer 3.15. Troponin is indeterminate at 0.028. BNP is elevated to 2700. Patient is still testing COVID-positive however this has been chronic for the last 3 weeks. Patient's chest x-ray shows no obvious acute cardiopulmonary process. Discussed with patient we will obtain CT PE. She was in agreement this plan. Patient given a second dose of IV metoprolol as she initially did respond and was loaded with oral metoprolol however patient went back into RVR with heart rates between 120 and 130 rather than consistently under 115. CT PE positive for PE with no evidence of right heart strain. I reached out to vascular surgery due to the elevated BNP as well as indeterminate troponin. Dr. Radfrod was in agreement with plan for echo and heparin at this time. He is consulted. I spoke with on-call pulmonology, Dr. Gray who was in agreement with the plan. I spoke with the accepting physician, Dr. Beach to accepted the admission. Cardiology consulted for the A-fib with RVR. Patient was transition to Cardizem drip as she did not really remain persistently rate controlled with metoprolol pushes given so far. She was in agreement this plan. Patient started on high intensity heparin therapy. Patient admitted in serious condition. Undiagnosed new problem with uncertain prognosis? @ -No Drug Therapy requiring intensive monitoring for toxicity (Heparin, Nitro, Insulin, Cardizem)? @ -Heparin Were any procedures done? @ -No Diagnosis/symptom? @ -New onset atrial fibrillation with RVR likely secondary to pulmonary embolism Acute, or Chronic, or Acute on Chronic? @ -Acute Uncomplicated (without systemic symptoms) or Complicated (systemic symptoms)? @ -Complicated Side effects of treatment? @ -No Exacerbation, Progression, or Severe Exacerbation? @ -No Poses a threat to life or bodily function? How? (Chest pain, [place], [place], pneumonia, PE, COPD, DKA, ARF, appy, cholecystitis, CVA, Diverticulitis, Homicidal, Suicidal, threat to staff... and all critical care pts) @ -Yes - Lab Data Result diagrams: 01/29/24 10:22 01/29/24 10:22 Lab Results 01/29/24 01/29/24 01/29/24 Range/Units 10:22 10:22 10:22 WBC 5.9 (3.8-10.6) k/uL RBC 4.29 (3.80-5.40) m/uL Hgb 12.8 (11.4-16.0) gm/dL Hct 40.1 (34.0-46.0) % MCV 93.5 (80.0-100.0) fL MCH 29.8 (25.0-35.0) pg MCHC 31.8 (31.0-37.0) g/dL RDW 13.7 (11.5-15.5) % Plt Count 197 (150-450) k/uL MPV 7.3 Neutrophils % 63 % Lymphocytes % 22 % Monocytes % 8 % Eosinophils % 2 % Basophils % 0 % Neutrophils # 3.7 (1.3-7.7) k/uL Lymphocytes # 1.3 (1.0-4.8) k/uL Monocytes # 0.5 (0-1.0) k/uL Eosinophils # 0.1 (0-0.7) k/uL Basophils # 0.0 (0-0.2) k/uL Hypochromasia Slight PT 11.0 (10.0-12.5) sec INR 1.0 (<1.2) APTT 21.6 L (22.0-30.0) sec D-Dimer 3.15 H (<0.60) mg/L FEU Sodium (137-145) mmol/L Potassium (3.5-5.1) mmol/L Chloride (98-107) mmol/L Carbon Dioxide (22-30) mmol/L Anion Gap mmol/L BUN (7-17) mg/dL Creatinine (0.52-1.04) mg/dL Est GFR (CKD-EPI)AfAm (>60 ml/min/1.73 sqM) Est GFR (CKD-EPI)NonAf (>60 ml/min/1.73 sqM) Glucose (74-99) mg/dL Calcium (8.4-10.2) mg/dL Magnesium (1.6-2.3) mg/dL Total Bilirubin (0.2-1.3) mg/dL AST (14-36) U/L ALT (4-34) U/L Alkaline Phosphatase (38-126) U/L Troponin I (0.000-0.034) ng/mL NT-Pro-B Natriuret Pep pg/mL Total Protein (6.3-8.2) g/dL Albumin (3.5-5.0) g/dL Lipase (23-300) U/L Urine Color Colorless Urine Appearance Clear (Clear) Urine pH 5.5 (5.0-8.0) Ur Specific [place] 1.009 (1.001-1.035) Urine Protein Trace H (Negative) Urine Glucose (UA) Negative (Negative) Urine Ketones Negative (Negative) Urine Blood Negative (Negative) Urine Nitrite Negative (Negative) Urine Bilirubin Negative (Negative) Urine Urobilinogen <2.0 (<2.0) mg/dL Ur Leukocyte Esterase Small H (Negative) Urine RBC 2 (0-5) /hpf Urine WBC 9 H (0-5) /hpf Urine WBC Clumps Rare H (None) /hpf Urine Bacteria Rare H (None) /hpf Urine Mucus Occasional H (None) /hpf Influenza Type A (PCR) (Not Detectd) Influenza Type B (PCR) (Not Detectd) RSV (PCR) (Not Detectd) SARS-CoV-2 (PCR) (Not Detectd) 01/29/24 01/29/24 01/29/24 Range/Units 10:22 10:22 10:33 WBC (3.8-10.6) k/uL RBC (3.80-5.40) m/uL Hgb (11.4-16.0) gm/dL Hct (34.0-46.0) % MCV (80.0-100.0) fL MCH (25.0-35.0) pg MCHC (31.0-37.0) g/dL RDW (11.5-15.5) % Plt Count (150-450) k/uL MPV Neutrophils % % Lymphocytes % % Monocytes % % Eosinophils % % Basophils % % Neutrophils # (1.3-7.7) k/uL Lymphocytes # (1.0-4.8) k/uL Monocytes # (0-1.0) k/uL Eosinophils # (0-0.7) k/uL Basophils # (0-0.2) k/uL Hypochromasia PT (10.0-12.5) sec INR (<1.2) APTT (22.0-30.0) sec D-Dimer (<0.60) mg/L FEU Sodium 140 (137-145) mmol/L Potassium 3.9 (3.5-5.1) mmol/L Chloride 108 H (98-107) mmol/L Carbon Dioxide 22 (22-30) mmol/L Anion Gap 10 mmol/L BUN 8 (7-17) mg/dL Creatinine 0.49 L (0.52-1.04) mg/dL Est GFR (CKD-EPI)AfAm >90 (>60 ml/min/1.73 sqM) Est GFR (CKD-EPI)NonAf >90 (>60 ml/min/1.73 sqM) Glucose 156 H (74-99) mg/dL Calcium 9.2 (8.4-10.2) mg/dL Magnesium 1.7 (1.6-2.3) mg/dL Total Bilirubin 0.4 (0.2-1.3) mg/dL AST 26 (14-36) U/L ALT 28 (4-34) U/L Alkaline Phosphatase 68 (38-126) U/L Troponin I 0.028 (0.000-0.034) ng/mL NT-Pro-B Natriuret Pep 2790 pg/mL Total Protein 5.9 L (6.3-8.2) g/dL Albumin 3.3 L (3.5-5.0) g/dL Lipase 53 (23-300) U/L Urine Color Urine Appearance (Clear) Urine pH (5.0-8.0) Ur Specific [place] (1.001-1.035) Urine Protein (Negative) Urine Glucose (UA) (Negative) Urine Ketones (Negative) Urine Blood (Negative) Urine Nitrite (Negative) Urine Bilirubin (Negative) Urine Urobilinogen (<2.0) mg/dL Ur Leukocyte Esterase (Negative) Urine RBC (0-5) /hpf Urine WBC (0-5) /hpf Urine WBC Clumps (None) /hpf Urine Bacteria (None) /hpf Urine Mucus (None) /hpf Influenza Type A (PCR) Not Detected (Not Detectd) Influenza Type B (PCR) Not Detected (Not Detectd) RSV (PCR) Not Detected (Not Detectd) SARS-CoV-2 (PCR) Detected A (Not Detectd) - EKG Data -: EKG Interpreted by Me EKG Comments: 12-lead Electrocardiogram Interpretation Note EKG was reviewed and interpreted by myself. 12-lead ECG performed at 1013 is interpreted by me as revealing atrial fibrillation with RVR at a rate of 126 beats per minute. [place] is normal. QRS duration is 122 ms, QTc is 398 ms. Nonspecific T wave abnormalities. R wave progression across the precordium was satisfactory. By my interpretation this EKG is non-diagnostic for acute ischemia. Critical Care Time Critical Care Time: Yes Total Critical Care Time: 44 Disposition Clinical Impression: Atrial fibrillation with RVR, Pulmonary embolism Disposition: ADMITTED IP TO THIS HOSP Condition: Serious Time of Disposition: 14:00
[2024-01-29] MEDS: DILTIAZEM 125 MG in SODIUM CHLORIDE 0.9% 100 ML IV SCH (14:45)
[2024-01-29] MEDS: HEPARIN SOD,PORK IN 0.45% NACL 25,000 UNIT in 0.45% NACL 1 250ML.BAG IV SCH (14:52)
[2024-01-29] MEDS: HEPARIN SODIUM 1,000 UN/ML (10ML VL) IV ONE (14:55)
[2024-01-29] MEDS: DILTIAZEM DRIP BOLUS FROM BAG 1 MG SOLN IV ONE (14:56)
[2024-01-29] MEDS: SODIUM CHLORIDE 0.9% 1,000 ML IV SCH (14:58)
--- NOTE | 2024-01-29 15:06 | P.HPIM ---
History of Present Illness This is a pleasant 79 years old female with past medical history of multiple medical problem Patient currently is a resident of [facility]. Patient has been recently diagnosed with COVID about 3 to 4 weeks ago and she fell. This morning she has been evaluated by her doctor Dr. Cardenas who noted irregular heartbeat and referred her to the hospital Patient feels generally weak but she denies any chest pain or dyspnea although she says she has some chest tightness. Not coughing a lot She has some discomfort in her abdomen but no overt abdominal pain vomiting or diarrhea. No urinary symptoms. No new headache weakness numbness or tingling No smoking alcohol or illicit drugs. She is afebrile, But she is tachycardic with heart rate 1 29-110. Blood pressure on the low side 98/73 improved to 127/84 She has unremarkable CBC, BMP, liver enzymes, INR, troponin x 1 Influenza A and type B, RSV, are undetected. SARS (coronavirus) came back positive though She started on heparin drip, Cardizem drip and admitted to the hospital Review of Systems Review of systems CONSTITUTIONAL: No fever, no malaise, no fatigue. HEENT: No recent visual problems or hearing problems. Denied any sore throat. CARDIOVASCULAR: No orthopnea, PND, no palpitations, no syncope. PULMONARY: No shortness of breath, no cough, no hemoptysis. GASTROINTESTINAL: No diarrhea, no nausea, no vomiting, no abdominal pain. N ormoactive bowel sounds. NEUROLOGICAL: No headaches, no weakness, no numbness. HEMATOLOGICAL: Denies any bleeding or petechiae. GENITOURINARY: Denies any burning micturition, frequency, or urgency. MUSCULOSKELETAL/RHEUMATOLOGICAL: Denies any joint pain, swelling, or any muscle pain. ENDOCRINE: Denies any polyuria or polydipsia. 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 "Stomach nodules". Hx of an Arrythmia. Varicose veins. Dementia History of Any Multi-Drug Resistant Organisms: None Reported Past Surgical History: Cholecystectomy, Hysterectomy, Orthopedic Surgery, Tonsillectomy Additional Past Surgical History / Comment(s): Foot surgery, right ganglion cyst removal, right carpal tunnel surgery, eye lid tumor removed, skin cancer removed from neck, left eye surgery. Past Anesthesia/Blood Transfusion Reactions: Motion Sickness, Postoperative Nausea & Vomiting (PONV) Past Psychological History: No Psychological Hx Reported Smoking Status: Never smoker Past Alcohol Use History: None Reported Past Drug Use History: None Reported - Past Family History Father Family Medical History: Cancer Sister(s) Family Medical History: Cancer Medications and Allergies Home Medications Medication Instructions Recorded Confirmed Type Aspirin [Adult Low Dose Aspirin EC] 81 mg PO HS 10/19/17 01/29/24 History Atorvastatin [Lipitor] 20 mg PO HS 10/19/17 01/29/24 History Donepezil [Aricept] 10 mg PO DAILY 10/19/17 01/29/24 History Glucosamine-Chondr 500-400Mg 1 tab PO DAILY 10/19/17 01/29/24 History Losartan [Cozaar] 25 mg PO DAILY 10/19/17 01/29/24 History Raloxifene [Evista] 60 mg PO DAILY 10/19/17 01/29/24 History atenoloL 25 mg PO BID 10/19/17 01/29/24 History Acetaminophen [Tylenol Arthritis] 650 mg PO BID 01/24/24 01/29/24 History Ammonium Lactate Cream [Lac-Hydrin 1 applic TOPICAL DAILY PRN 01/24/24 01/29/24 History 12% Cream] Clobetasol Propionate [Temovate 1 applic TOPICAL BID PRN 01/24/24 01/29/24 History 0.05% Cream] Colestipol HCl 2 gm PO HS 01/24/24 01/29/24 History Escitalopram [Lexapro] 10 mg PO DAILY 01/24/24 01/29/24 History Fexofenadine HCl [Karlee Allergy] 180 mg PO DAILY 01/24/24 01/29/24 History Memantine [Namenda] 10 mg PO BID 01/24/24 01/29/24 History Multivit-Min/Iron/Folic/Lutein 1 tab PO DAILY 01/24/24 01/29/24 History [Centrum Silver Women Tablet] Mv-Mn/Om3/Dha/Epa/Fish/Lut/German 1 cap PO HS 01/24/24 01/29/24 History [Ocuvite Adult 50 Plus Softgel] Sennosides [Senokot] 8.6 mg PO BID PRN 01/24/24 01/29/24 History HYDROcodone/APAP 5-325MG [[place] 1 each PO Q6HR PRN #12 tab 01/26/24 01/29/24 Rx 5-325] OLANZapine [ZyPREXA] 5 mg PO HS #3 tab 01/26/24 01/29/24 Rx Biotin 5,000 mcg PO DAILY 01/29/24 01/29/24 History Cranberry 450mg 450 mg PO HS 01/29/24 01/29/24 History INSULIN LISPRO (HumaLOG) [humaLOG] See Protocol SQ ACHS 01/29/24 01/29/24 History Omeprazole 20 mg PO DAILY 01/29/24 01/29/24 History Allergies Allergy/AdvReac Type Severity Reaction Status Date / Time ibuprofen [From Motrin] AdvReac Rash/Hives Verified 01/29/24 12:25 morphine AdvReac Nausea Verified 01/29/24 12:25 Physical Exam Vitals: Vital Signs Temp Pulse Pulse Resp BP Pulse Ox 01/29/24 11:35 110 H 20 127/84 98 01/29/24 11:15 109 H 20 98/73 98 01/29/24 10:32 20 01/29/24 10:28 129 H 20 116/56 98 01/29/24 10:26 124 H 01/29/24 10:20 97.7 F 124 H 20 122/65 98 Intake and Output 01/29/24 01/29/24 01/29/24 06:59 14:59 22:59 Other: Weight 68.039 kg -GENERAL: The patient is alert and oriented x3, not in any acute distress. Well developed, well nourished. Generally weak HEENT: Pupils are round and equally reacting to light. EOMI. No scleral icterus. No conjunctival pallor. Normocephalic, atraumatic. No pharyngeal erythema. No thyromegaly. CARDIOVASCULAR: S1 and S2 present. No murmurs, rubs, or gallops. PULMONARY: Chest is clear to auscultation, no wheezing , no crackles. ABDOMEN: Soft, nontender, nondistended, normoactive bowel sounds. No palpable organomegaly. MUSCULOSKELETAL: No joint swelling or deformity. EXTREMITIES: No cyanosis, clubbing, or pedal edema. NEUROLOGICAL: Gross neurological examination did not reveal any focal deficits. SKIN: No rashes. no petechiae. Results CBC & Chem 7: 01/29/24 10:22 01/29/24 10:22 Labs: Abnormal Lab Results - Last 24 Hours (Table) 01/29/24 01/29/24 01/29/24 Range/Units 10:22 10:22 10:22 APTT 21.6 L (22.0-30.0) sec D-Dimer 3.15 H (<0.60) mg/L FEU Chloride 108 H (98-107) mmol/L Creatinine 0.49 L (0.52-1.04) mg/dL Glucose 156 H (74-99) mg/dL Total Protein 5.9 L (6.3-8.2) g/dL Albumin 3.3 L (3.5-5.0) g/dL Urine Protein Trace H (Negative) Ur Leukocyte Esterase Small H (Negative) Urine WBC 9 H (0-5) /hpf Urine WBC Clumps Rare H (None) /hpf Urine Bacteria Rare H (None) /hpf Urine Mucus Occasional H (None) /hpf SARS-CoV-2 (PCR) (Not Detectd) 01/29/24 Range/Units 10:33 APTT (22.0-30.0) sec D-Dimer (<0.60) mg/L FEU Chloride (98-107) mmol/L Creatinine (0.52-1.04) mg/dL Glucose (74-99) mg/dL Total Protein (6.3-8.2) g/dL Albumin (3.5-5.0) g/dL Urine Protein (Negative) Ur Leukocyte Esterase (Negative) Urine WBC (0-5) /hpf Urine WBC Clumps (None) /hpf Urine Bacteria (None) /hpf Urine Mucus (None) /hpf SARS-CoV-2 (PCR) Detected A (Not Detectd) Assessment and Plan Assessment: Acute pulmonary embolism involving the left main artery with no evidence of heart strain New onset A-fib and RVR could be related to above Recent COVID infection with associated generalized weakness Recent falling and she has sedentary lifestyle in her [facility] currently Diabetes mellitus Hypertension Hyperlipidemia Plan: Continue with heparin drip Continue with Cardizem drip Cardiology and pulmonary consult check echocardiogram Check ultrasound of the leg Labs and medication were reviewed.. Continue same treatment. Continue with symptomatic treatment. Resume home medication. Monitor labs and vitals. DVT and GI prophylaxis. Further recommendations as per clinical course of the patient DVT prophylaxis: heparin GI Prophylaxis: Pepcid PT/OT: Pending Prognosis is guarded
[2024-01-29 16:58] LABS: Basophils % (A) 0 %; Eosinophils # (A) 0.2 k/uL (0-0.7); Eosinophils % (A) 3 %; HCT 36.2 % (34.0-46.0); HGB 11.7 gm/dL (11.4-16.0); Lymphocytes # (A) 1.7 k/uL (1.0-4.8); Lymphocytes % (A) 29 %; MCH 30.1 pg (25.0-35.0); MCHC 32.3 g/dL (31.0-37.0); MCV 93.2 fL (80.0-100.0); Mean Platelet Volume 7.9; Monocytes # (A) 0.4 k/uL (0-1.0); Monocytes % (A) 7 %; Neutrophils # (A) 3.4 k/uL (1.3-7.7); Neutrophils % (A) 58 %; Platelet Count 174 k/uL (150-450); RBC 3.88 m/uL (3.80-5.40); RDW 13.7 % (11.5-15.5); WBC 5.8 k/uL (3.8-10.6)
[2024-01-29 17:18] LABS: INR 1.2 (<1.2); Prothrombin Time 12.8 sec (10.0-12.5)
[2024-01-29 17:25] LABS: Partial Thromboplastin Time 183.5 sec (22.0-30.0)
[2024-01-29] MEDS: Apixaban Initiation Dose--VTE 5 MG TAB PO SCH (18:01)
--- NOTE | 2024-01-29 19:00 | P.CNPUL ---
History of Present Illness Consult date: 01/29/24 Reason for consult: pulmonary embolism History of present illness: 79-year-old female patient, [facility] who was infected with COVID-19 approximately 3 weeks ago. Patient apparently had a fall about 2 weeks ago, she was evaluated by her primary care physician who ordered x-rays at that time. There was concern for compression deformities involving the T12 vertebral body. Patient was then seen in the hospital a few days later for complaints of low back pain. She was diagnosed with COVID around the same time. Patient has been discharged to home after the initial hospital visit, she does live with her . Patient has progressively gotten worse with regards to her appetite, generalized weakness and low back pain which prompted her to return to the hospital. The CT scan without contrast of the abdomen, pelvis and chest were also reviewed from 01/24/2024. AO A3 incomplete burst fracture noted of the T12 vertebral body. Multilevel lumbar spondylosis is present with significant degenerative disc disease at multiple levels. The patient was given a brace and following that she was seen by orthopedic and spine surgery and she was released to [facility] at [facility] on the [address] few days ago. This morning, the patient was found to be tachycardic with irregular pulse consistent with atrial fibrillation with rapid ventricular response. The patient was also weak and she was having some chest tightness. No hemoptysis. No pleurisy. She came into the emergency where the patient was found to be in A-fib RVR. Her initial blood pressure was soft at 98/73 and the patient's heart rate was up to 110. The white cell count was at 5.9 with a hemoglobin 12.8 and a platelet count of 197. D-dimer was at 3.1. Rest of the coagulation profile showed an INR of 1 with a PT of 11 and a PTT of 21. Electrolytes are all stable . proBNP level level was 2790. Troponins were negative. UA was negative. COVID-19 was still positive with negative RSV and influenza. Patient underwent a CAT scan of the brain that was negative. Chest x-ray was also within normal limits. Subsequently, the patient was given a CTA of the chest that showed filling defect with a pulmonary embolism involving the distal left main and segmental upper lobe branches of the pulmonary artery. Rest of the lungs are essentially clear and there was no pleural effusion. The tracheobronchial tree and the mediastinum was essentially within normal limits. Accordingly, the patient was started on IV heparin and pulmonary consultation was requested. V ascular surgery was also consulted regarding those findings. Based on my review of the CT of the chest, there is no CAT scan criteria of RV dysfunction/failure, pending echocardiogram. As mentioned, troponins are negative. Most recent hemodynamic parameters show a heart rate of 110, BP 127/84 with a pulse ox of 98% on room air oxygen. No previous history of DVT or pulmonary embolism. Review of Systems Constitutional: Reports fatigue, Reports weakness Eyes: denies as per HPI, denies blurred vision, denies bulging eye, denies decreased vision, denies diplopia, denies discharge, denies dry eye, denies irritation, denies itching, denies pain, denies photophobia, denies loss of peripheral vision, denies loss of vision, denies tunnel vision/blind spots Ears: deny: decreased hearing, ear discharge, earache, tinnitus Ears, nose, mouth and throat: Reports as per HPI Breasts: absent: as per HPI, change in shape, gynecomastia, masses, nipple discharge, pain, skin changes, swelling Cardiovascular: Reports decreased exercise tolerance, Reports irregular heart beat Respiratory: Reports as per HPI Gastrointestinal: Reports as per HPI Genitourinary: Reports as per HPI Menstruation: Reports as per HPI Musculoskeletal: Reports low back pain Musculoskeletal: absent: ankle pain, ankle stiffness, ankle swelling, as per HPI, elbow pain, elbow stiffness, elbow swelling, foot pain, foot stiffness, foot swelling, hand pain, hand stiffness, hand swelling, hip pain, hip stiffness, hip swelling, knee pain, knee stiffness, knee swelling, shoulder pain, shoulder stiffness, shoulder swelling, wrist pain, wrist stiffness, wrist swelling Integumentary: Reports as per HPI Neurological: Reports as per HPI, Reports gait dysfunction, Reports weakness Psychiatric: Reports as per HPI Endocrine: Reports as per HPI, Reports fatigue Hematologic/Lymphatic: Reports as per HPI Allergic/Immunologic: Reports as per HPI Past Medical History Past Medical History: Cancer, Diabetes Mellitus, Hyperlipidemia, Hypertension, Osteoarthritis (OA) Additional Past Medical History / Comment(s): Hx Skin 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 "Stomach nodules". Hx of an Arrythmia. Varicose veins. Dementia History of Any Multi-Drug Resistant Organisms: None Reported Past Surgical History: Cholecystectomy, Hysterectomy, Orthopedic Surgery, To nsillectomy Additional Past Surgical History / Comment(s): Foot surgery, right ganglion cyst removal, right carpal tunnel surgery, eye lid tumor removed, skin cancer removed from neck, left eye surgery. Past Anesthesia/Blood Transfusion Reactions: Motion Sickness, Postoperative Nausea & Vomiting (PONV) Past Psychological History: No Psychological Hx Reported Smoking Status: Never smoker Past Alcohol Use History: None Reported Past Drug Use History: None Reported - Past Family History Father Family Medical History: Cancer Sister(s) Family Medical History: Cancer Medications and Allergies Home Medications Medication Instructions Recorded Confirmed Type Aspirin [Adult Low Dose Aspirin EC] 81 mg PO HS 10/19/17 01/29/24 History Atorvastatin [Lipitor] 20 mg PO HS 10/19/17 01/29/24 History Donepezil [Aricept] 10 mg PO DAILY 10/19/17 01/29/24 History Glucosamine-Chondr 500-400Mg 1 tab PO DAILY 10/19/17 01/29/24 History Losartan [Cozaar] 25 mg PO DAILY 10/19/17 01/29/24 History Raloxifene [Evista] 60 mg PO DAILY 10/19/17 01/29/24 History atenoloL 25 mg PO BID 10/19/17 01/29/24 History Acetaminophen [Tylenol Arthritis] 650 mg PO BID 01/24/24 01/29/24 History Ammonium Lactate Cream [Lac-Hydrin 1 applic TOPICAL DAILY PRN 01/24/24 01/29/24 History 12% Cream] Clobetasol Propionate [Temovate 1 applic TOPICAL BID PRN 01/24/24 01/29/24 History 0.05% Cream] Colestipol HCl 2 gm PO HS 01/24/24 01/29/24 History Escitalopram [Lexapro] 10 mg PO DAILY 01/24/24 01/29/24 History Fexofenadine HCl [Karlee Allergy] 180 mg PO DAILY 01/24/24 01/29/24 History Memantine [Namenda] 10 mg PO BID 01/24/24 01/29/24 History Multivit-Min/Iron/Folic/Lutein 1 tab PO DAILY 01/24/24 01/29/24 History [Centrum Silver Women Tablet] Mv-Mn/Om3/Dha/Epa/Fish/Lut/German 1 cap PO HS 01/24/24 01/29/24 History [Ocuvite Adult 50 Plus Softgel] Sennosides [Senokot] 8.6 mg PO BID PRN 01/24/24 01/29/24 History HYDROcodone/APAP 5-325MG [Java 1 each PO Q6HR PRN #12 tab 01/26/24 01/29/24 Rx 5-325] OLANZapine [ZyPREXA] 5 mg PO HS #3 tab 01/26/24 01/29/24 Rx Biotin 5,000 mcg PO DAILY 01/29/24 01/29/24 History Cranberry 450mg 450 mg PO HS 01/29/24 01/29/24 History INSULIN LISPRO (HumaLOG) [humaLOG] See Protocol SQ ACHS 01/29/24 01/29/24 History Omeprazole 20 mg PO DAILY 01/29/24 01/29/24 History Allergies Allergy/AdvReac Type Severity Reaction Status Date / Time ibuprofen [From Motrin] AdvReac Rash/Hives Verified 01/29/24 12:25 morphine AdvReac Nausea Verified 01/29/24 12:25 Physical Exam Vitals: Vital Signs Temp Pulse Pulse Resp BP Pulse Ox 01/29/24 11:35 110 H 20 127/84 98 01/29/24 11:15 109 H 20 98/73 98 01/29/24 10:32 20 01/29/24 10:28 129 H 20 116/56 98 01/29/24 10:26 124 H 01/29/24 10:20 97.7 F 124 H 20 122/65 98 Intake and Output 01/29/24 01/29/24 01/29/24 06:59 14:59 22:59 Other: Weight 68.039 kg The patient appeared well nourished and normally developed. Vital signs as documented. Patient is on room air oxygen with a pulse ox of 96%. Head exam is unremarkable. No scleral icterus or corneal arcus noted. Neck is without jugular venous distension, thyromegaly, or carotid bruits. Carotid upstrokes are brisk bilaterally. Lungs are clear to auscultation and percussion. Cardiac exam reveals the PMI to be normally sized and situated. Rhythm is irregular consistent with atrial fibrillation with a controlled rate for now.. First and second heart sounds normal. No murmurs, rubs or gallops. Abdominal exam reveals normal bowel sounds, no masses, no organomegaly and no aortic enlargement. Extremities are nonedematous and both femoral and pedal pulses are normal. Examination of the skin revealed no evidence of significant rashes, suspicious appearing nevi or other concerning lesions. Neurologically, the patient is awake and alert and the patient does not have any focal neurological deficit. Cranial nerves are essentially intact. Results - Laboratory Findings CBC and BMP: 01/29/24 16:35 01/29/24 10:22 PT/INR, D-dimer PT 11.0 sec (10.0-12.5) 01/29/24 10:22 INR 1.0 (<1.2) 01/29/24 10:22 D-Dimer 3.15 mg/L FEU (<0.60) H 01/29/24 10:22 Abnormal lab findings: Abnormal Labs 01/29/24 01/29/24 01/29/24 10:22 10:22 10:22 APTT 21.6 L D-Dimer 3.15 H Chloride 108 H Creatinine 0.49 L Glucose 156 H Total Protein 5.9 L Albumin 3.3 L Urine Protein Trace H Ur Leukocyte Esterase Small H Urine WBC 9 H Urine WBC Clumps Rare H Urine Bacteria Rare H Urine Mucus Occasional H SARS-CoV-2 (PCR) 01/29/24 10:33 APTT D-Dimer Chloride Creatinine Glucose Total Protein Albumin Urine Protein Ur Leukocyte Esterase Urine WBC Urine WBC Clumps Urine Bacteria Urine Mucus SARS-CoV-2 (PCR) Detected A - Diagnostic Findings CT scan - chest: image reviewed Assessment and Plan Plan: New onset atrial fibrillation, rate controlled and the patient is currently on Cardizem drip at 5 mg an hour. Patient is also started on IV heparin in the emergency department. Acute pulmonary embolism with a very questionable tiny filling defect in the left main pulmonary artery and segmental branches in the left upper lobe. Obviously, this is possible as the patient is his excellent clinical condition set up for venous thromboembolic disease including chronic debility, fall and back injury and T-spine fracture in addition to recent COVID-19 infection. She has not had any previous pulmonary embolism. Hemodynamically stable. No significant hypoxemia. No RV strain pattern. Troponins are not elevated COVID-19 infection approximately 3 weeks ago and the patient is still positive T12 vertebral body burst fracture with secondary back pain Multilevel lumbar spondylosis along with lumbar degenerative disc disease Dementia Diabetes mellitus type 2 Hypertension Hyperlipidemia History of skin cancer Plan Obtain Doppler lower extremities Obtain echocardiogram Not a candidate for intra arterial thrombolytic therapy The patient will be taken off the IV heparin and the patient was switched to anticoagulation with Eliquis 10 mg p.o. twice a day for 1 week and following that 5 mg p.o. daily. Continue Cardizem drip for rate control Pain control along with the back brace regarding the T-spine fracture Aggressive physical therapy Will continue to follow
--- NOTE | 2024-01-29 19:14 | US ---
EXAMINATION TYPE: US venous doppler duplex [facility] DATE OF EXAM: 01/29/2024 5:04 PM COMPARISON: Same day CT PE study (which is positive) CLINICAL INDICATION: Female, 79 years old with history of PE; SIDE PERFORMED: Bilateral TECHNIQUE: Venous duplex examination of the bilateral lower extremities from the groin to the upper calf perform ed using B-mode, color flow and spectral analysis plus graded compression. VESSELS IMAGED: Common Femoral Vein Deep Femoral Vein Greater Saphenous Vein * Femoral Vein Popliteal Vein Small Saphenous Vein * Proximal Calf Veins (* superficial vessels) FINDINGS: RIGHT LOWER EXTREMITY: There is color flow, spontaneous and phasic flow with normal compressibility seen of the external kirsten ac vein, common femoral vein, greater saphenous vein, profunda, femoral vein, and popliteal vein. Pro ximal calf veins show normal compressibility. No thrombus is seen throughout the right lower extremi ty. LEFT LOWER EXTREMITY: In the left popliteal vein, there is echogenic intraluminal material with noncompressibility and abse nce of color Doppler flow, consistent with occlusive or nearly occlusive thrombus. The other visualiz ed left lower extremity veins appear to be patent. IMPRESSION: Positive for DVT left popliteal vein. [facility], , 01/29/2024 7:12 PM
[2024-01-29] MEDS: ACETAMINOPHEN TAB 325 MG TAB PO SCH (20:55)
[2024-01-29] MEDS: MEMANTINE 10 MG TAB PO SCH (20:56)
[2024-01-29] MEDS: ATORVASTATIN 20 MG TAB PO SCH (20:56)
[2024-01-29] MEDS ORDERED: Apixaban Initiation Dose--VTE 5 MG TAB PO SCH (21:00)
[2024-01-30] MEDS: HYDROcodone/APAP 5-325MG 1 EACH TAB PO PRN (02:01)
[2024-01-30] MEDS: OLANZapine 5 MG TAB PO SCH (02:45)
[2024-01-30 06:39] LABS: Basophils % (A) 1 %; Eosinophils # (A) 0.2 k/uL (0-0.7); Eosinophils % (A) 5 %; HGB 12.3 gm/dL (11.4-16.0); Hypochromasia Slight; Lymphocytes # (A) 1.4 k/uL (1.0-4.8); Lymphocytes % (A) 33 %; MCH 29.6 pg (25.0-35.0); MCHC 31.4 g/dL (31.0-37.0); MCV 94.1 fL (80.0-100.0); Mean Platelet Volume 7.6; Monocytes # (A) 0.4 k/uL (0-1.0); Monocytes % (A) 9 %; Neutrophils % (A) 49 %; Platelet Count 161 k/uL (150-450); RBC 4.14 m/uL (3.80-5.40); RDW 13.8 % (11.5-15.5); WBC 4.1 k/uL (3.8-10.6)
[2024-01-30 06:58] LABS: ALT 26 U/L (4-34); AST 26 U/L (14-36); African American GFR (CKD) >90 (>60 ml/min/1.73 sqM); Albumin 2.9 g/dL (3.5-5.0); Alkaline Phosphatase 68 U/L (38-126); Anion Gap 6 mmol/L; Blood Urea Nitrogen 6 mg/dL (7-17); Calcium 8.4 mg/dL (8.4-10.2); Carbon Dioxide 23 mmol/L (22-30); Chloride 111 mmol/L (98-107); Glucose 125 mg/dL (74-99); Non-African American GFR(CKD) >90 (>60 ml/min/1.73 sqM); Potassium 3.8 mmol/L (3.5-5.1); Sodium 140 mmol/L (137-145); Total Bilirubin 0.7 mg/dL (0.2-1.3); Total Protein 5.3 g/dL (6.3-8.2)
[2024-01-30] MEDS: DONEPEZIL 10 MG TAB PO SCH (08:41)
[2024-01-30] MEDS: ESCITALOPRAM 10 MG TAB PO SCH (08:41)
--- NOTE | 2024-01-30 12:44 | P.PN ---
Subjective Progress Note Date: 01/30/24 79-year-old female patient, [place] resident who was infected with COVID-19 approximately 3 weeks ago. Patient apparently had a fall about 2 weeks ago, she was evaluated by her primary care physician who ordered x-rays at that time. There was concern for compression deformities involving the T12 vertebral body. Patient was then seen in the hospital a few days later for complaints of low back pain. She was diagnosed with COVID around the same time. Patient has been discharged to home after the initial hospital visit, she does live with her . Patient has progressively gotten worse with regards to her appetite, generalized weakness and low back pain which prompted her to return to the hospital. The CT scan without contrast of the abdomen, pelvis and chest were also reviewed from 01/24/2024. AO A3 incomplete burst fracture noted of the T12 vertebral body. Multilevel lumbar spondylosis is present with significant degenerative disc disease at multiple levels. The patient was given a brace and following that she was seen by orthopedic and spine surgery and she was released to [facility] at [facility] on the [address] few days ago. This morning, the patient was found to be tachycardic with irregular pulse consistent with atrial fibrillation with rapid ventricular response. The patient was also weak and she was having some chest tightness. No hemoptysis. No pleurisy. She came into the emergency where the patient was found to be in A-fib RVR. Her initial blood pressure was soft at 98/73 and the patient's heart rate was up to 110. The white cell count was at 5.9 with a hemoglobin 12.8 and a platelet count of 197. D-dimer was at 3.1. Rest of the coagulation profile showed an INR of 1 with a PT of 11 and a PTT of 21. Electrolytes are all stable. proBNP level level was 2790. Troponins were negative. UA was negative. COVID-19 was still positive with negative RSV and influenza. Patient underwent a CAT scan of the brain that was negative. Chest x-ray was also within normal limits. Subsequently, the patient was given a CTA of the chest that showed filling defect with a pulmonary embolism involving the distal left main and segmental upper lobe branches of the pulmonary artery. Rest of the lungs are essentially clear and there was no pleural effusion. The trac heobronchial tree and the mediastinum was essentially within normal limits. Accordingly, the patient was started on IV heparin and pulmonary consultation was requested. Vascular surgery was also consulted regarding those findings. Based on my review of the CT of the chest, there is no CAT scan criteria of RV dysfunction/failure, pending echocardiogram. As mentioned, troponins are negative. Most recent hemodynamic parameters show a heart rate of 110, BP 127/84 with a pulse ox of 98% on room air oxygen. No previous history of DVT or pulmonary embolism. The patient is seen today January 30, 2024 in follow-up in the emergency department. She is currently sitting up on a stretcher. Awake and alert in no acute distress. She is maintaining good O2 saturations in the 90s on room air. She has been afebrile. Hemodynamically stable. Venous Dopplers did reveal a positive DVT in the left lower extremity. She has been transitioned to Eliquis. Continued on a Cardizem drip at 5 mg/h. She remains in atrial fibrillation. White count 4.1. Hemoglobin 12.3. Platelets 161. Sodium 140. Potassium 3.8. Bicarb 23. BUN 6. Creatinine 0.45. Objective - Vital Signs Vital signs: Vital Signs Temp 97.5 F L 01/30/24 08:36 Pulse 100 01/30/24 10:07 Resp 18 01/30/24 10:07 BP 120/63 01/30/24 10:07 Pulse Ox 94 L 01/30/24 10:07 FiO2 Intake & Output 01/29/24 01/30/24 01/30/24 18:59 06:59 18:59 Weight 68.039 kg - Exam GENERAL EXAM: Alert, pleasant 79-year-old female, on room air, comfortable in no apparent distress. HEAD: Normocephalic. EYES: Normal reaction of pupils, equal size. NOSE: Clear with pink turbinates. THROAT: No erythema or exudates. NECK: No masses, no JVD. CHEST: No chest wall deformity. LUNGS: Equal air entry with no crackles, wheeze, rhonchi or dullness. CVS: S1 and S2 normal with no audible murmur, regular rhythm. ABDOMEN: No hepatosplenomegaly, normal bowel sounds, no guarding or rigidity. SPINE: No scoliosis or deformity SKIN: No rashes CENTRAL NERVOUS SYSTEM: No focal deficits, tone is normal in all 4 extremities. EXTREMITIES: There is no peripheral edema. No clubbing, no cyanosis. Peripheral pulses are intact. - Labs CBC & Chem 7: 01/30/24 06:08 01/30/24 06:08 Labs: Abnormal Lab Results - Last 24 Hours (Table) 01/29/24 01/30/24 Range/Units 16:35 06:08 PT 12.8 H (10.0-12.5) sec INR 1.2 H (<1.2) APTT 183.5 H* (22.0-30.0) sec Chloride 111 H (98-107) mmol/L BUN 6 L (7-17) mg/dL Creatinine 0.45 L (0.52-1.04) mg/dL Glucose 125 H (74-99) mg/dL Total Protein 5.3 L (6.3-8.2) g/dL Albumin 2.9 L (3.5-5.0) g/dL Assessment and Plan Assessment: New onset atrial fibrillation, rate controlled and currently on Cardizem drip at 5 mg an hour. Transitioned from heparin to Eliquis Acute pulmonary embolism with a very questionable tiny filling defect in the left main pulmonary artery and segmental branches in the left upper lobe. Obviously, this is possible as the patient is his excellent clinical condition set up for venous thromboembolic disease including chronic debility, fall and back injury and T-spine fracture in addition to recent COVID-19 infection. She has not had any previous pulmonary embolism. Hemodynamically stable. No significant hypoxemia. No RV strain pattern. Troponins are not elevated DVT of the left lower extremity secondary to above COVID-19 infection approximately 3 weeks ago and the patient is still positive T12 vertebral body burst fracture with secondary back pain Multilevel lumbar spondylosis along with lumbar degenerative disc disease Dementia Diabetes mellitus type 2 Hypertension Hyperlipidemia History of skin cancer Plan: The patient was seen and evaluated Imaging, labs and medications reviewed Transitioned to Eliquis Stable and on room air Continued on Cardizem drip Echocardiogram pending We will continue to follow I have personally seen and examined the patient, performed the documentation and the assessment and plan as written. Number of minutes spent on the visit: 10 .
--- NOTE | 2024-01-30 14:42 | P.CRDCN ---
History of Present Illness Consult date: 01/30/24 Consult reason: chest pain, atrial fibrillation, shortness of breath Chief complaint: sob History of present illness: History of present illness: Patient is a pleasant 79-year-old female with significant past medical history of hypertension, diabetes, stroke, irregular heartbeat, and dementia who presented with fast irregular heartbeat. She does reside at [facility]. She follows with Dr. Mendoza in the office for history of irregular heartbeat however denies history of atrial fibrillation. She was found to be in A-fib with RVR and therefore sent to the ER. She reports she was not feeling any different. CTA of the chest also revealed pulmonary embolism. She reports that she did have COVID 3 weeks ago. She then had a fall approximately 2 weeks ago that resulted in a T12 compression fracture/incomplete burst fracture. Venous Doppler showed positive DVT left popliteal vein. She had been feeling okay and on routine evaluation was found to have irregular fast heartbeat and therefore was sent to the ER. She denied having any chest pain or shortness of breath. She does have some right side pain. She also complains of back pain. Denies any dizziness or syncope. She is not very active but family reports she was up walking in the halls over the weekend. Labs reviewed: Troponin negative x 2, potassium 3.7, creatinine 0.45, BNP 2710. REVIEW OF SYSTEMS: No fever or chills. No cough or expectoration. No diaphoresis. Patient denies headache, dizziness, blurred vision, double vision. Patient denies any stomach discomfort. No nausea, vomiting. No hematochezia. No hematemesis. Denies any black stools or blood in his stools. Denies dysuria or hematuria. No muscle weakness or numbness. No chest pain or pressure. PHYSICAL EXAMINATION: This is a 79-year-old female in no apparent distress at the time of my examination. HEENT: Head is atraumatic, normocephalic. Pupils are equal, round. Sclerae anict genesis. Conjunctivae are clear. Mucous membranes of the mouth are moist. Neck is supple. There is no jugular venous distention. No carotid bruit is heard. CHEST EXAMINATION: Lungs are clear to auscultation. No chest wall tenderness is noted on palpation or with deep breathing. HEART EXAMINATION: Heart irregular rate and rhythm. S1, S2 heard. No murmurs, gallops or rub. ABDOMEN: Soft, nontender. Bowel sounds are heard. EXTREMITIES: 2+ peripheral pulses with no evidence of peripheral edema and no calf tenderness noted. NEUROLOGIC EXAMINATION: Patient is awake, alert and oriented with some confu dee. IMPRESSION AND PLAN: A-fib with RVR Pulmonary embolism Left popliteal vein DVT Hypertension Diabetes type 2 History of stroke Dementia T12 compression fraction Recent COVID-19 infection PLAN: We will check echocardiogram to evaluate heart function and structure. Will start amiodarone drip, wean off Cardizem. Start Toprol 25 mg daily. Continue with anticoagulation. Continue telemetry monitoring. We will follow. I am dictating on behalf of Dr. Osei Desai's history/physical and assessment/plan. 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 "Stomach nodules". Hx of an Arrythmia. Varicose veins. Dementia History of Any Multi-Drug Resistant Organisms: None Reported Past Surgical History: Cholecystectomy, Hysterectomy, Orthopedic Surgery, Tonsillectomy Additional Past Surgical History / Comment(s): Foot surgery, right ganglion cyst removal, right carpal tunnel surgery, eye lid tumor removed, skin cancer removed from neck, left eye surgery. Past Anesthesia/Blood Transfusion Reactions: Motion Sickness, Postoperative Nausea & Vomiting (PONV) Past Psychological History: No Psychological Hx Reported Smoking Status: Never smoker Past Alcohol Use History: None Reported Past Drug Use History: None Reported - Past Family History Father Family Medical History: Cancer Sister(s) Family Medical History: Cancer Medications and Allergies Home Medications Medication Instructions Recorded Confirmed Type Aspirin [Adult Low Dose Aspirin EC] 81 mg PO HS 10/19/17 01/29/24 History Atorvastatin [Lipitor] 20 mg PO HS 10/19/17 01/29/24 History Donepezil [Aricept] 10 mg PO DAILY 10/19/17 01/29/24 History Glucosamine-Chondr 500-400Mg 1 tab PO DAILY 10/19/17 01/29/24 History Losartan [Cozaar] 25 mg PO DAILY 10/19/17 01/29/24 History Raloxifene [Evista] 60 mg PO DAILY 10/19/17 01/29/24 History atenoloL 25 mg PO BID 10/19/17 01/29/24 History Acetaminophen [Tylenol Arthritis] 650 mg PO BID 01/24/24 01/29/24 History Ammonium Lactate Cream [Lac-Hydrin 1 applic TOPICAL DAILY PRN 01/24/24 01/29/24 History 12% Cream] Clobetasol Propionate [Temovate 1 applic TOPICAL BID PRN 01/24/24 01/29/24 His tory 0.05% Cream] Colestipol HCl 2 gm PO HS 01/24/24 01/29/24 History Escitalopram [Lexapro] 10 mg PO DAILY 01/24/24 01/29/24 History Fexofenadine HCl [Karlee Allergy] 180 mg PO DAILY 01/24/24 01/29/24 History Memantine [Namenda] 10 mg PO BID 01/24/24 01/29/24 History Multivit-Min/Iron/Folic/Lutein 1 tab PO DAILY 01/24/24 01/29/24 History [Centrum Silver Women Tablet] Mv-Mn/Om3/Dha/Epa/Fish/Lut/German 1 cap PO HS 01/24/24 01/29/24 History [Ocuvite Adult 50 Plus Softgel] Sennosides [Senokot] 8.6 mg PO BID PRN 01/24/24 01/29/24 History HYDROcodone/APAP 5-325MG [[place] 1 each PO Q6HR PRN #12 tab 01/26/24 01/29/24 Rx 5-325] OLANZapine [ZyPREXA] 5 mg PO HS #3 tab 01/26/24 01/29/24 Rx Biotin 5,000 mcg PO DAILY 01/29/24 01/29/24 History Cranberry 450mg 450 mg PO HS 01/29/24 01/29/24 History INSULIN LISPRO (HumaLOG) [humaLOG] See Protocol SQ ACHS 01/29/24 01/29/24 History Omeprazole 20 mg PO DAILY 01/29/24 01/29/24 History Allergies Allergy/AdvReac Type Severity Reaction Status Date / Time ibuprofen [From Motrin] AdvReac Rash/Hives Verified 01/29/24 12:25 morphine AdvReac Nausea Verified 01/29/24 12:25 Physical Exam Vitals: Vital Signs Temp Pulse Pulse Resp BP Pulse Ox 01/30/24 09:11 104 H 18 121/76 95 01/30/24 08:36 97.5 F L 134 H 16 135/57 95 01/30/24 07:00 83 20 105/53 96 01/30/24 04:00 99 16 117/47 97 01/30/24 00:00 95 18 102/71 97 01/29/24 23:00 98 19 120/60 98 01/29/24 21:43 96 18 107/70 97 01/29/24 21:00 98 18 112/85 96 01/29/24 20:00 82 12 98/86 96 01/29/24 19:15 90 18 101/51 97 01/29/24 18:29 77 20 106/48 96 01/29/24 18:00 74 20 60/35 98 01/29/24 17:20 82 16 93/53 98 01/29/24 11:35 110 H 20 127/84 98 01/29/24 11:15 109 H 20 98/73 98 01/29/24 10:32 20 01/29/24 10:28 129 H 20 116/56 98 01/29/24 10:26 124 H 01/29/24 10:20 97.7 F 124 H 20 122/65 98 Results 01/30/24 06:08 01/30/24 06:08 Cardiac Enzymes 01/29/24 01/29/24 01/29/24 Range/Units 10:22 10:22 14:32 AST 26 (14-36) U/L Troponin I 0.028 0.027 (0.000-0.034) ng/mL 01/29/24 01/30/24 Range/Units 17:53 06:08 AST 26 (14-36) U/L Troponin I 0.018 (0.000-0.034) ng/mL Coagulation 01/29/24 01/29/24 Range/Units 10:22 16:35 PT 11.0 12.8 H (10.0-12.5) sec APTT 21.6 L 183.5 H* (22.0-30.0) sec CBC 01/29/24 01/29/24 01/30/24 Range/Units 10:22 16:35 06:08 WBC 5.9 5.8 4.1 (3.8-10.6) k/uL RBC 4.29 3.88 4.14 (3.80-5.40) m/uL Hgb 12.8 11.7 12.3 (11.4-16.0) gm/dL Hct 40.1 36.2 39.0 (34.0-46.0) % Plt Count 197 174 161 (150-450) k/uL Comprehensive Metabolic Panel 01/29/24 01/30/24 Range/Units 10:22 06:08 Sodium 140 140 (137-145) mmol/L Potassium 3.9 3.8 (3.5-5.1) mmol/L Chloride 108 H 111 H (98-107) mmol/L Carbon Dioxide 22 23 (22-30) mmol/L BUN 8 6 L (7-17) mg/dL Creatinine 0.49 L 0.45 L (0.52-1.04) mg/dL Glucose 156 H 125 H (74-99) mg/dL Calcium 9.2 8.4 (8.4-10.2) mg/dL AST 26 26 (14-36) U/L ALT 28 26 (4-34) U/L Alkaline Phosphatase 68 68 (38-126) U/L Total Protein 5.9 L 5.3 L (6.3-8.2) g/dL Albumin 3.3 L 2.9 L (3.5-5.0) g/dL Current Medications Generic Name Dose Route Start Last Admin Trade Name Freq PRN Reason Stop Dose Admin Acetaminophen 650 mg 01/29/24 21:00 01/30/24 08:41 Acetaminophen Tab 325 Mg Tab PO 650 mg BID BHASKAR Administration Hydrocodone Bitart/Acetaminophen 1 each 01/29/24 14:39 01/30/24 02:01 Hydrocodone/Apap 5-325mg 1 Each Tab PO 1 each Q6HR PRN Administration Pain Apixaban 10 mg 01/29/24 18:00 01/30/24 05:43 Apixaban Initiation Dose--Vte 5 Mg Tab PO 02/28/24 17:59 10 mg Q12H BHASKAR Administration Taper Atorvastatin Calcium 20 mg 01/29/24 21:00 01/29/24 20:56 Atorvastatin 20 Mg Tab PO 20 mg HS BHASKAR Administration Donepezil HCl 10 mg 01/30/24 09:00 09/30/24 08:41 Donepezil 10 Mg Tab PO 10 mg DAILY BHASKAR Administration Escitalopram Oxalate 10 mg 01/30/24 09:00 01/30/24 08:41 Escitalopram 10 Mg Tab PO 10 mg DAILY BHASKAR Administration Diltiazem HCl 125 mg/ Sodium 125 mls @ 5 mls/hr 01/29/24 14:30 01/29/24 14:45 Chloride IV 5 mg/hr .Q24H BHASKAR 5 mls/hr Administration 5 MG/HR Sodium Chloride 1,000 mls @ 75 mls/hr 01/29/24 14:15 01/30/24 05:20 Saline 0.9% IV Not Given .[id number] BHASKAR Memantine 10 mg 01/29/24 21:00 01/30/24 08:41 Memantine 10 Mg Tab PO 10 mg BID BHASKAR Administration Naloxone HCl 0.2 mg 01/29/24 14:03 Naloxone 0.4 Mg/Ml 1 Ml Vial IV Q2M PRN Opioid Reversal Olanzapine 5 mg 01/30/24 02:32 01/30/24 05:43 Olanzapine 5 Mg Tab PO 5 mg HS BAHSKAR Administration Ondansetron HCl 4 mg 01/29/24 14:03 Ondansetron 4 Mg/2 Ml Vial IVP Q8HR PRN Nausea And Vomiting 01/30/24 06:08 01/30/24 06:08
[2024-01-30] MEDS: METOPROLOL SUCCINATE (ER) 25 MG TAB.ER.24H PO SCH (15:19)
[2024-01-30] MEDS: DEXTROSE 5% IN WATER 100 ML with AMIODARONE 150 MG IV ONE (15:19)
[2024-01-30] MEDS: AMIODARONE 360 MG in DEXTROSE 5% IN WATER 200 ML IV ONE (15:28)
--- NOTE | 2024-01-30 15:32 | P.GSCN ---
History of Present Illness Consult date: 01/30/24 Reason for Consult: PE, DVT History of present illness: 79 years old female presented to the hospital secondary to an irregular heartbeat noted at her halfway. She was experiencing weakness and chest tightness and was worked up for possible PE. She was found to have a segmental and left main small PE and was admitted to the hospital. She also had an ultrasound of the lower extremities and was diagnosed with popliteal dvt on the left. She was also tachycardic and was found to have new onset atrial fibrillation and is seen by cardiology as well as pulmonology. She does have a recent history of COVID about 3 to 4 weeks ago as well as history of falls. Currently she denies any chest pain or shortness of breath. 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 "Stomach nodules". Hx of an Arrythmia. Varicose veins. Dementia History of Any Multi-Drug Resistant Organisms: None Reported Past Surgical History: Cholecystectomy, Hysterectomy, Orthopedic Surgery, Tonsillectomy Additional Past Surgical History / Comment(s): Foot surgery, right ganglion cyst removal, right carpal tunnel surgery, eye lid tumor removed, skin cancer removed from neck, left eye surgery. Past Anesthesia/Blood Transfusion Reactions: Motion Sickness, Postoperative Nausea & Vomiting (PONV) Past Psychological History: No Psychological Hx Reported Smoking Status: Never smoker Past Alcohol Use History: None Reported Past Drug Use History: None Reported - Past Family History Father Family Medical History: Cancer Sister(s) Family Medical History: Cancer Medications and Allergies Home Medications Medication Instructions Recorded Confirmed Type Aspirin [Adult Low Dose Aspirin EC] 81 mg PO HS 10/19/17 01/29/24 History Atorvastatin [Lipitor] 20 mg PO HS 10/19/17 01/29/24 History Donepezil [Aricept] 10 mg PO DAILY 10/19/17 01/29/24 History Glucosamine-Chondr 500-400Mg 1 tab PO DAILY 10/19/17 01/29/24 History Losartan [Cozaar] 25 mg PO DAILY 10/19/17 01/29/24 History Raloxifene [Evista] 60 mg PO DAILY 10/19/17 01/29/24 History atenoloL 25 mg PO BID 10/19/17 01/29/24 History Acetaminophen [Tylenol Arthritis] 650 mg PO BID 01/24/24 01/29/24 History Ammonium Lactate Cream [Lac-Hydrin 1 applic TOPICAL DAILY PRN 01/24/24 01/29/24 History 12% Cream] Clobetasol Propionate [Temovate 1 applic TOPICAL BID PRN 01/24/24 01/29/24 History 0.05% Cream] Colestipol HCl 2 gm PO HS 01/24/24 01/29/24 History Escitalopram [Lexapro] 10 mg PO DAILY 01/24/24 01/29/24 History Fexofenadine HCl [Karlee Allergy] 180 mg PO DAILY 01/24/24 01/29/24 History Memantine [Namenda] 10 mg PO BID 01/24/24 01/29/24 History Multivit-Min/Iron/Folic/Lutein 1 tab PO DAILY 01/24/24 01/29/24 History [Centrum Silver Women Tablet] Mv-Mn/Om3/Dha/Epa/Fish/Lut/German 1 cap PO HS 01/24/24 01/29/24 History [Ocuvite Adult 50 Plus Softgel] Sennosides [Senokot] 8.6 mg PO BID PRN 01/24/24 01/29/24 History HYDROcodone/APAP 5-325MG [[place] 1 each PO Q6HR PRN #12 tab 01/26/24 01/29/24 Rx 5-325] OLANZapine [ZyPREXA] 5 mg PO HS #3 tab 01/26/24 01/29/24 Rx Biotin 5,000 mcg PO DAILY 01/29/24 01/29/24 History Cranberry 450mg 450 mg PO HS 01/29/24 01/29/24 History INSULIN LISPRO (HumaLOG) [humaLOG] See Protocol SQ ACHS 01/29/24 01/29/24 History Omeprazole 20 mg PO DAILY 01/29/24 01/29/24 History Allergies Allergy/AdvReac Type Severity Reaction Status Date / Time ibuprofen [From Motrin] AdvReac Rash/Hives Verified 01/29/24 12:25 morphine AdvReac Nausea Verified 01/29/24 12:25 Surgical - Exam Vital Signs Temp Pulse Resp BP Pulse Ox 97.7 F 124 H 20 122/65 98 01/29/24 10:20 01/29/24 10:20 01/29/24 10:20 01/29/24 10:20 01/29/24 10:20 - General well developed, well nourished, no distress - Eyes PERRL - ENT normal pinna - Neck no masses - Respiratory normal expansion, normal respiratory effort - Cardiovascular Rhythm: regularly irregular - Abdomen Abdomen: soft, non tender Results - Labs 01/30/24 06:08 01/30/24 06:08 Abnormal Lab Results - Last 24 Hours (Table) 01/29/24 01/30/24 Range/Units 16:35 06:08 PT 12.8 H (10.0-12.5) sec INR 1.2 H (<1.2) APTT 183.5 H* (22.0-30.0) sec Chloride 111 H (98-107) mmol/L BUN 6 L (7-17) mg/dL Creatinine 0.45 L (0.52-1.04) mg/dL Glucose 125 H (74-99) mg/dL Total Protein 5.3 L (6.3-8.2) g/dL Albumin 2.9 L (3.5-5.0) g/dL Diabetes panel 01/30/24 Range/Units 06:08 Sodium 140 (137-145) mmol/L Potassium 3.8 (3.5-5.1) mmol/L Chloride 111 H (98-107) mmol/L Carbon Dioxide 23 (22-30) mmol/L BUN 6 L (7-17) mg/dL Creatinine 0.45 L (0.52-1.04) mg/dL Glucose 125 H (74-99) mg/dL Calcium 8.4 (8.4-10.2) mg/dL AST 26 (14-36) U/L ALT 26 (4-34) U/L Alkaline Phosphatase 68 (38-126) U/L Total Protein 5.3 L (6.3-8.2) g/dL Albumin 2.9 L (3.5-5.0) g/dL Calcium panel 01/30/24 Range/Units 06:08 Calcium 8.4 (8.4-10.2) mg/dL Albumin 2.9 L (3.5-5.0) g/dL Pituitary panel 01/30/24 Range/Units 06:08 Sodium 140 (137-145) mmol/L Potassium 3.8 (3.5-5.1) mmol/L Chloride 111 H (98-107) mmol/L Carbon Dioxide 23 (22-30) mmol/L BUN 6 L (7-17) mg/dL Creatinine 0.45 L (0.52-1.04) mg/dL Glucose 125 H (74-99) mg/dL Calcium 8.4 (8.4-10.2) mg/dL Adrenal panel 01/30/24 Range/Units 06:08 Sodium 140 (137-145) mmol/L Potassium 3.8 (3.5-5.1) mmol/L Chloride 111 H (98-107) mmol/L Carbon Dioxide 23 (22-30) mmol/L BUN 6 L (7-17) mg/dL Creatinine 0.45 L (0.52-1.04) mg/dL Glucose 125 H (74-99) mg/dL Calcium 8.4 (8.4-10.2) mg/dL Total Bilirubin 0.7 (0.2-1.3) mg/dL AST 26 (14-36) U/L ALT 26 (4-34) U/L Alkaline Phosphatase 68 (38-126) U/L Total Protein 5.3 L (6.3-8.2) g/dL Albumin 2.9 L (3.5-5.0) g/dL Assessment and Plan Assessment: Acute pulmonary embolism involving the left main and subsegmental branches New onset atrial fibrillation Acute left popliteal DVT Plan: Reviewed CT imaging and ultrasound which does demonstrate positive DVT and pulmonary embolism. She is not having significant symptoms from her PE and does not appear to have heart strain and therefore no surgical intervention is required at this time. Agree with transitioning to oral anticoagulation for at least 6 months. Thank you for the consultation.
--- NOTE | 2024-01-30 15:58 | P.PN ---
Subjective Progress Note Date: 01/30/24 This is an 79-year-old female admitted with new onset atrial fibrillation, acute PE, left lower extremity DVT in a patient with recent COVID approximately 3 weeks ago with testing still reading positive, T12 vertebral body compression fracture-conservative management and multiple other medical issues. Vital signs stable. Telemetry atrial fibrillation, maintained on Cardizem drip. Transitioned to oral anticoagulation with Eliquis. Afebrile, normal WBC,, electrolytes and renal function stable. Maintaining O2 sats in the 90s on room air. Objective - Vital Signs Vital signs: Vital Signs Temp 97.5 F L 01/30/24 08:36 Pulse 85 01/30/24 13:28 Resp 18 01/30/24 13:28 BP 110/63 01/30/24 13:28 Pulse Ox 94 L 01/30/24 13:28 FiO2 Intake & Output 01/29/24 01/30/24 01/30/24 18:59 06:59 18:59 Intake Total 116.75 Balance 116.75 Weight 68.039 kg Intake: Intake, IV Titration 116.75 Amount Diltiazem 125 mg In 116.75 Sodium Chloride 0.9% 100 ml @ 5 MG/HR 5 mls/hr IV .Q24H [facility] Rx#:[id number] - Exam VITAL SIGNS: [Reviewed] GENERAL: Pleasant, alert and oriented x 2, sitting up in chair, no acute distress. HEENT: Atraumatic, normocephalic conjunctivae normal. eyes normal. NECK: Supple, no JVD. No thyroid enlargement. No LNs CARDIOVASCULAR: S1, S2 regular, irregular R&R. No murmur RESPIRATION: Unlabored, equal air entry, breath sounds diminished in the bases. No rhonchi or crackles. No bronchial breathing. ABDOMEN: Soft, nontender . No guarding. no masses palpable. No ascites, No hepatosplenomegaly.Bowel sounds heard. LEGS: No edema. no swelling. No clubbing, no cyanosis, no calf tenderness, peripheral pulses intact. NERVOUS SYSTEM: Cranial N 2-12 grossly normal. Diffuse weakness, fine tremors, strength and sensation grossly intact. Skin: Warm and dry no rash - Labs CBC & Chem 7: 01/30/24 06:08 01/30/24 06:08 Labs: Abnormal Lab Results - Last 24 Hours (Table) 01/29/24 01/30/24 Range/Units 16:35 06:08 PT 12.8 H (10.0-12.5) sec INR 1.2 H (<1.2) APTT 183.5 H* (22.0-30.0) sec Chloride 111 H (98-107) mmol/L BUN 6 L (7-17) mg/dL Creatinine 0.45 L (0.52-1.04) mg/dL Glucose 125 H (74-99) mg/dL Total Protein 5.3 L (6.3-8.2) g/dL Albumin 2.9 L (3.5-5.0) g/dL Assessment and Plan Assessment: Acute PE involving the left main and subsegmental branches, acute left popliteal DVT New onset atrial fibrillation with RVR Recently discharged on 01/27/2024 to subacute rehab status post fall, T12 vertebral body compression fracture, conservative management recommended per orthopedic surgery Recent COVID, approximately 3 weeks ago Dementia, advanced over the last couple years as per PCP Fine tremors, possible Parkinson's disease Diabetes mellitus II HX CVA Hypertension Hyperlipidemia Skin cancer OA History of PONV Plan: Continue on current medication resume ,monitoring and symptomatic treatment. No heart strain per vascular surgery's evaluation, therefore no surgical intervention recommended at this time. Transitioned to oral anticoagulation of Eliquis. Maintained on antiarrhythmics/Cardizem drip as per cardiology. The impression and plan of care has been dictated as directed. : I performed a history and examination of this patient, discussed the same with the dictator. I agree with the dictator's note ,documented as a scribe. Any additional findings or plans will be noted.
--- NOTE | 2024-01-30 17:28 | CA ---
Transthoracic Echo Report Name: Julianna Herman Age: 79 Gender: F : 1945 Exam Date: 01/30/2024 14:21 Exam Location: [facility] Ht (in): 62 Wt (lb): 150 Ordering Physician: Radhames Harrison MD Attending/Referring Phys: Water [employer]essel Captain Dominique Garcia RDCS Procedure CPT: Indications: PE Cardiac Hx: Technical Quality: Good Contrast 1: Total Dose (mL): Contrast 2: Total Dose (mL): MEASUREMENTS (Male / Female) Normal Values 2D ECHO LV Diastolic Diameter PLAX 5.0 cm 4.2 - 5.9 / 3.9 - 5.3 cm LV Systolic Diameter PLAX 3.1 cm IVS Diastolic Thickness 0.8 cm 0.6 - 1.0 / 0.6 - 0.9 cm LVPW Diastolic Thickness 1.0 cm 0.6 - 1.0 / 0.6 - 0.9 cm LV Relative Wall Thickness 0.4 RV Internal Dim ED PLAX 2.4 cm LA Systolic Diameter LX 3.9 cm 3.0 - 4.0 / 2.7 - 3.8 cm LV Diastolic Volume MOD 4C 70.0 cm??? LV Systolic Volume MOD 4C 30.7 cm??? LV Ejection Fraction MOD 4C 56.2 % LV Cardiac Index MOD 4C 2029.1 cm???/min???m??? LV Diastolic Length 4C 6.8 cm LV Systolic Length 4C 5.8 cm LV Diastolic Volume MOD 2C 73.3 cm??? LV Systolic Volume MOD 2C 39.3 cm??? LV Ejection Fraction MOD 2C 46.4 % LV Cardiac Index MOD 2C 1753.3 cm???/min???m??? LV Diastolic Length 2C 7.0 cm LV Systolic Length 2C 6.0 cm LA Volume 46.3 cm??? 18 - 58 / 22 - 52 cm??? LA Volume Index 26.5 cm???/m??? 16 - 28 cm???/m??? M-MODE Aortic Root Diameter MM 2.8 cm AV Cusp Separation MM 2.1 cm DOPPLER AV Peak Velocity 108.2 cm/s AV Peak Gradient 4.7 mmHg MV Area PHT 4.1 cm??? MV Deceleration Time 198.6 ms TR Peak Velocity 260.9 cm/s TR Peak Gradient 27.2 mmHg Right Ventricular Systolic Press 31.8 mmHg FINDINGS Left Ventricle Left ventricular ejection fraction is estimated at 45-50 %. Left ventricular cavity size normal. Left ventricular wall thickness normal. Right Ventricle Normal right ventricular size and function. Right ventricular systolic pressure within normal limits. Right Atrium Normal right atrial size. No right atrial thrombus or mass seen. Left Atrium Mildly increased left atrial diameter. No left atrial thrombus or mass present. Mitral Valve Mitral valve thickened. Mild mitral annular calcification. Trace to mild mitral regurgitation. Aortic Valve Trileaflet aortic valve. Aortic valve sclerosis. No aortic valve stenosis or regurgitation. Tricuspid Valve Structurally normal tricuspid valve. Mild tricuspid regurgitation. Pulmonic Valve Structurally normal pulmonic valve. Trace to mild pulmonic regurgitation. Pericardium No pericardial or pleural effusion. Aorta Normal size aortic root and proximal ascending aorta. CONCLUSIONS Mild LV systolic dysfunction Previewed by: Dr. Denver Mazariegos MD (Electronically Signed) Final Date: 30 January 2024 17:27
[2024-01-30] MEDS: AMIODARONE 450 MG in DEXTROSE 5% IN WATER 250 ML IV SCH (21:53)
[2024-01-30] MEDS ORDERED: ZINC OXIDE PASTE (Z-GUARD) 1 APPLIC TOPICAL PRN (23:51)
[2024-01-31 10:16] VITALS: RESP 18; TEMP 98
--- NOTE | 2024-01-31 10:47 | P.PN ---
Subjective Progress Note Date: 01/31/24 Principal diagnosis: PE, DVT Patient is seen and examined today as a follow-up. She is sitting up at the bedside. She denies any shortness of breath or chest pain. She is not r equiring any supplemental oxygen. Oxygen 97 to 98% on room air. No pain currently in her lower extremities. She does have a tremor. Heparin drip was discontinued and patient was started on Eliquis. Objective - Vital Signs Vital signs: Vital Signs Temp 97.6 F 01/31/24 04:00 Pulse 58 L 01/31/24 04:00 Resp 16 01/31/24 04:00 BP 119/53 01/31/24 04:00 Pulse Ox 97 01/31/24 04:00 FiO2 Intake & Output 01/30/24 01/31/24 01/31/24 18:59 06:59 18:59 Intake Total 116.75 Balance 116.75 Weight 68.039 kg Intake: Intake, IV Titration 116.75 Amount Diltiazem 125 mg In 116.75 Sodium Chloride 0.9% 100 ml @ 5 MG/HR 5 mls/hr IV .Q24H [facility] Rx#:[id number] Other: Voiding Method Bedside Commode # Voids 1 - Exam General appearance: The patient is alert, oriented, appears in no acute distress. HET: Head is normocephalic and atraumatic. Neck: Supple. Heart: Regularly irregular. Lungs: Equal expansion, normal respiratory effort. Abdomen: Soft, nontender, nondistended. Extremities: Normal skin color and turgor. Minimal swelling of the left lower extremity. Neurological: Bilateral upper extremity tremor noted. - Labs CBC & Chem 7: 01/30/24 06:08 01/30/24 06:08 Assessment and Plan Assessment: 1. Acute pulmonary embolism involving left main and subsegmental branches 2. New onset atrial fibrillation 3. Acute left popliteal DVT Plan: CT angiogram and ultrasound reviewed and does not appear to have heart strain. No surgical intervention required. May apply compression stocking to left lower extremity. Continue anticoagulation for at least 6 months. Thank you for this consultation, we will sign off at this time. The impression and plan of care has been dictated as directed. I performed a history and examination of this patient, discussed the same with the dictator. I agree with the dictator's note ,documented as a scribe. Any additional findings or plans will be noted.
[2024-01-31] MEDS: AMIODARONE 200 MG TAB PO SCH (12:05)
[2024-01-31 12:30] VITALS: BP 152/69; PULSE 74
--- NOTE | 2024-01-31 12:43 | P.DS ---
Providers Date of admission: 01/29/24 14:03 Expected date of discharge: 01/31/24 Attending physician: Roosevelt Meadows Consults: 01/29/24 14:03 Consult Physician Routine Consulting Provider: [facility] Consult Reason/Comments: new onset afib with rvr secondary to PE Do you want consulting provider notified?: Yes Consult Physician Routine Consulting Provider: Hermelindo Radford Consult Reason/Comments: PE, ekos eval Do you want consulting provider notified?: Yes Consult Physician Urgent Consulting Provider: Judie Gray Consult Reason/Comments: PE Do you want consulting provider notified?: Yes Primary care physician: [facility] Mead[facility] Course: Final Diagnoses: Acute PE involving the left main and subsegmental branches, acute left popliteal DVT. New onset atrial fibrillation with RVR Recently discharged on 01/27/2024 to subacute rehab status post fall, T12 vertebral body compression fracture, conservative management recommended per orthopedic surgery Recent COVID, approximately 3 weeks ago Dementia, advanced over the last couple years as per PCP Fine tremors, possible Parkinson's disease Diabetes mellitus II HX CVA Hypertension Hyperlipidemia Skin cancer OA History of PONV Hospital course:This is an 79-year-old female admitted with new onset atrial fibrillation, acute PE, left lower extremity DVT in a patient with recent COVID approximately 3 weeks ago with testing still reading positive, T12 vertebral body compression fracture-conservative management and multiple other medical issues. Vital signs stable. Telemetry atrial fibrillation, maintained on Cardizem drip. Transitioned to oral anticoagulation with Eliquis. Afebrile, normal WBC,, electrolytes and renal function stable. Maintaining O2 sats in the 90s on room air. No heart strain per vascular surgery's evaluation, therefore no surgical intervention recommended at this time. Transitioned to oral anticoagulation of Eliquis. Maintained on antiarrhythmics/Cardizem drip as per cardiology. Significant clinical improvement, troponins are not elevated, echo reported mild LV systolic dysfunction, EF 45 to 50%. Denies chest pain, palpitations or shortness of breath. Maintaining O2 sats in the high 90s on room air. Continues on amiodarone. telemetry sinus rhythm, heart rate controlled. Anticoagulated on Eliquis. cleared by cardiology for discharge. Patient will be discharged to [facility] subacute rehab today in stable condition with guarded prognosis pending final DC recommendations and clearance per pulmonary. The impression and plan of care has been dictated as directed. : I performed a history and examination of this patient, discussed the same with the dictator. I agree with the dictator's note ,documented as a scribe. Any additional findings or plans will be noted. Patient Condition at Discharge: Stable Plan - Discharge Summary Discharge Rx Participant: No New Discharge Prescriptions: New Amiodarone [Cordarone] 400 mg PO BID #180 tab Metoprolol Succinate (ER) [Toprol XL] 25 mg PO DAILY tab Apixaban Initiation Dose--VTE [Eliquis Initiation Dosing for VTE Treatment] 10 mg PO Q12H tab Continue Glucosamine-Chondr 500-400Mg 1 tab PO DAILY Donepezil [Aricept] 10 mg PO DAILY Atorvastatin [Lipitor] 20 mg PO HS Raloxifene [Evista] 60 mg PO DAILY Aspirin [Adult Low Dose Aspirin EC] 81 mg PO HS Fexofenadine HCl [Karlee Allergy] 180 mg PO DAILY Cranberry 450mg 450 mg PO HS Biotin 5,000 mcg PO DAILY HYDROcodone/APAP 5-325MG [Tacoma 5-325] 1 each PO Q6HR PRN #12 tab PRN Reason: Pain Colestipol HCl 2 gm PO HS Memantine [Namenda] 10 mg PO BID Escitalopram [Lexapro] 10 mg PO DAILY Clobetasol Propionate [Temovate 0.05% Cream] 1 applic TOPICAL BID PRN PRN Reason: Dry Skin Ammonium Lactate Cream [Lac-Hydrin 12% Cream] 1 applic TOPICAL DAILY PRN PRN Reason: Dry Skin Multivit-Min/Iron/Folic/Lutein [Centrum Silver Women Tablet] 1 tab PO DAILY Sennosides [Senokot] 8.6 mg PO BID PRN PRN Reason: Constipation Mv-Mn/Om3/Dha/Epa/Fish/Lut/German [Ocuvite Adult 50 Plus Softgel] 1 cap PO HS Acetaminophen [Tylenol Arthritis] 650 mg PO BID OLANZapine [ZyPREXA] 5 mg PO HS #3 tab INSULIN LISPRO (HumaLOG) [humaLOG] See Protocol SQ ACHS Omeprazole 20 mg PO DAILY Discontinued Losartan [Cozaar] 25 mg PO DAILY atenoloL 25 mg PO BID Discharge Medication List Aspirin [Adult Low Dose Aspirin EC] 81 mg PO HS 10/19/17 [History] Atorvastatin [Lipitor] 20 mg PO HS 10/19/17 [History] Donepezil [Aricept] 10 mg PO DAILY 10/19/17 [History] Glucosamine-Chondr 500-400Mg 1 tab PO DAILY 10/19/17 [History] Raloxifene [Evista] 60 mg PO DAILY 10/19/17 [History] Acetaminophen [Tylenol Arthritis] 650 mg PO BID 01/24/24 [History] Ammonium Lactate Cream [Lac-Hydrin 12% Cream] 1 applic TOPICAL DAILY PRN 01/24/24 [History] Clobetasol Propionate [Temovate 0.05% Cream] 1 applic TOPICAL BID PRN 01/24/24 [History] Colestipol HCl 2 gm PO HS 01/24/24 [History] Escitalopram [Lexapro] 10 mg PO DAILY 01/24/24 [History] Fexofenadine HCl [Karlee Allergy] 180 mg PO DAILY 01/24/24 [History] Memantine [Namenda] 10 mg PO BID 01/24/24 [History] Multivit-Min/Iron/Folic/Lutein [Centrum Silver Women Tablet] 1 tab PO DAILY 01/24/24 [History] Mv-Mn/Om3/Dha/Epa/Fish/Lut/German [Ocuvite Adult 50 Plus Softgel] 1 cap PO HS 01/24/24 [History] Sennosides [Senokot] 8.6 mg PO BID PRN 01/24/24 [History] OLANZapine [ZyPREXA] 5 mg PO HS #3 tab 01/26/24 [Rx] Biotin 5,000 mcg PO DAILY 01/29/24 [History] Cranberry 450mg 450 mg PO HS 01/29/24 [History] INSULIN LISPRO (HumaLOG) [humaLOG] See Protocol SQ ACHS 01/29/24 [History] Omeprazole 20 mg PO DAILY 01/29/24 [History] Amiodarone [Cordarone] 400 mg PO BID #180 tab 01/31/24 [Rx] Apixaban Initiation Dose--VTE [Eliquis Initiation Dosing for VTE Treatment] 10 mg PO Q12H tab 01/31/24 [Rx] HYDROcodone/APAP 5-325MG [Tacoma 5-325] 1 each PO Q6HR PRN #12 tab 01/31/24 [Rx] Metoprolol Succinate (ER) [Toprol XL] 25 mg PO DAILY tab 01/31/24 [Rx] Follow up Appointment(s)/Referral(s): Roosevelt Meadows DO [Primary Care Provider] - 1 Week (After DC from subacute rehab.) Hermelindo Radford DO [STAFF PHYSICIAN] - 4 Weeks Activity/Diet/Wound Care/Special Instructions: Beverley HEATH BMP in 3 days
--- NOTE | 2024-01-31 13:14 | P.PN ---
Subjective HISTORY OF PRESENT ILLNESS: Patient is a pleasant 79-year-old female with significant past medical history of hypertension, diabetes, stroke, irregular heartbeat, and dementia who presented with fast irregular heartbeat. She does reside at [facility]. She follows with Dr. Mendoza in the office for history of irregular heartbeat however denies history of atrial fibrillation. She was found to be in A-fib with RVR and therefore sent to the ER. She reports she was not feeling any different. CTA of the chest also revealed pulmonary embolism. She reports that she did have COVID 3 weeks ago. She then had a fall approximately 2 weeks ago that r esulted in a T12 compression fracture/incomplete burst fracture. Venous Doppler showed positive DVT left popliteal vein. She had been feeling okay and on routine evaluation was found to have irregular fast heartbeat and therefore was sent to the ER. She denied having any chest pain or shortness of breath. She does have some right side pain. She also complains of back pain. Denies any dizziness or syncope. She is not very active but family reports she was up walking in the halls over the weekend. Labs reviewed: Troponin negative x 2, potassium 3.7, creatinine 0.45, BNP 2710. 01/31/2024 Patient examined this morning the bedside. Patient currently denies chest pain or pressure. She denies shortness of breath. She remains on IV amiodarone. She is maintaining sinus mechanism this morning. Vital signs are stable. PHYSICAL EXAM: VITAL SIGNS: Reviewed. GENERAL: Well-developed in no acute distress. NECK: Supple. No JVD or thyromegaly LUNGS: Respirations even and unlabored. Lungs essentially clear to auscultation bilaterally. HEART: Regular rate and rhythm. S1 and S2 heard. EXTREMITIES: Normal range of motion. No clubbing or cyanosis. Peripheral pulses intact. No lower extremity edema ASSESSMENT: New onset A-fib with RVR Left acute pulmonary embolism Left popliteal vein DVT Hypertension Diabetes type 2 History of stroke Dementia T12 compression fraction Recent COVID-19 infection PLAN: Continue current cardiac medications Continue IV amiodarone infusion. Begin oral amiodarone 400 mg twice a day when infusion is completed Continue telemetry monitoring Patient is stable for discharge home today from a cardiac standpoint She is to follow-up postdischarge in the office Nurse practitioner note has been reviewed by physician. Signing provider agrees with the documented findings, assessment, and plan of care documented by PROBATION OFFICER as a scribe. Objective - Vital Signs Vital signs: Vital Signs Temp 98.0 F 01/31/24 08:00 Pulse 74 01/31/24 12:00 Resp 18 01/31/24 12:00 BP 152/69 01/31/24 12:00 Pulse Ox 97 01/31/24 12:00 FiO2 Intake & Output 01/30/24 01/31/24 01/31/24 18:59 06:59 18:59 Intake Total 116.75 118 Balance 116.75 118 Weight 68.039 kg Intake: Intake, IV Titration 116.75 Amount Diltiazem 125 mg In 116.75 Sodium Chloride 0.9% 100 ml @ 5 MG/HR 5 mls/hr IV .Q24H [facility] Rx#:[id number] Oral 118 Other: Voiding Method Bedside Commode # Voids 1 - Labs CBC & Chem 7: 01/30/24 06:08 01/30/24 06:08
--- NOTE | 2024-01-31 14:58 | P.PN ---
Subjective Progress Note Date: 01/31/24 79-year-old female patient, senior care resident who was infected with COVID-19 approximately 3 weeks ago. Patient apparently had a fall about 2 weeks ago, she was evaluated by her primary care physician who ordered x-rays at that time. There was concern for compression deformities involving the T12 vertebral body. Patient was then seen in the hospital a few days later for complaints of low back pain. She was diagnosed with COVID around the same time. Patient has been discharged to home after the initial hospital visit, she does live with her . Patient has progressively gotten worse with regards to her appetite, generalized weakness and low back pain which prompted her to return to the hospital. The CT scan without contrast of the abdomen, pelvis and chest were also reviewed from 01/24/2024. AO A3 incomplete burst fracture noted of the T12 vertebral body. Multilevel lumbar spondylosis is present with significant degenerative disc disease at multiple levels. The patient was given a brace and following that she was seen by orthopedic and spine surgery and she was released to [facility] at [facility] on the fuentes few days ago. This morning, the patient was found to be tachycardic with irregular pulse consistent with atrial fibrillation with rapid ventricular response. The patient was also weak and she was having some chest tightness. No hemoptysis. No pleurisy. She came into the emergency where the patient was found to be in A-fib RVR. Her initial blood pressure was soft at 98/73 and the patient's heart rate was up to 110. The white cell count was at 5.9 with a hemoglobin 12.8 and a platelet count of 197. D-dimer was at 3.1. Rest of the coagulation profile showed an INR of 1 with a PT of 11 and a PTT of 21. Electrolytes are all stable. proBNP level level was 2790. Troponins were negative. UA was negative. COVID-19 was still positive with negative RSV and influenza. Patient underwent a CAT scan of the brain that was negative. Chest x-ray was also within normal limits. Subsequently, the patient was given a CTA of the chest that showed filling defect with a pulmonary embolism involving the distal left main and segmental upper lobe branches of the pulmonary artery. Rest of the lungs are essentially clear and there was no pleural effusion. The trac heobronchial tree and the mediastinum was essentially within normal limits. Accordingly, the patient was started on IV heparin and pulmonary consultation was requested. Vascular surgery was also consulted regarding those findings. Based on my review of the CT of the chest, there is no CAT scan criteria of RV dysfunction/failure, pending echocardiogram. As mentioned, troponins are negative. Most recent hemodynamic parameters show a heart rate of 110, BP 127/84 with a pulse ox of 98% on room air oxygen. No previous history of DVT or pulmonary embolism. The patient is seen today January 30, 2024 in follow-up in the emergency department. She is currently sitting up on a stretcher. Awake and alert in no acute distress. She is maintaining good O2 saturations in the 90s on room air. She has been afebrile. Hemodynamically stable. Venous Dopplers did reveal a positive DVT in the left lower extremity. She has been transitioned to Eliquis. Continued on a Cardizem drip at 5 mg/h. She remains in atrial fibrillation. White count 4.1. Hemoglobin 12.3. Platelets 161. Sodium 140. Potassium 3.8. Bicarb 23. BUN 6. Creatinine 0.45. The patient is seen today January 31, 2024 in follow-up on not regular medical floor. He is currently resting comfortably in bed. Awake and alert in no acute distress. She is maintaining good O2 saturations in the 90s on room air. She has been afebrile. Hemodynamically stable. She is anticoagulated with Eliquis. Objective - Vital Signs Vital signs: Vital Signs Temp 98.0 F 01/31/24 08:00 Pulse 74 01/31/24 14:00 Resp 18 01/31/24 12:00 BP 152/69 01/31/24 12:00 Pulse Ox 97 01/31/24 12:00 FiO2 Intake & Output 01/30/24 01/31/24 01/31/24 18:59 06:59 18:59 Intake Total 116.75 118 Balance 116.75 118 Weight 68.039 kg Intake: Intake, IV Titration 116.75 Amount Diltiazem 125 mg In 116.75 Sodium Chloride 0.9% 100 ml @ 5 MG/HR 5 mls/hr IV .Q24H [facility] Rx#:[id number] Oral 118 Other: Voiding Method Bedside Commode # Voids 1 - Exam GENERAL EXAM: Alert, 79-year-old female, resting in bed, on room air, comfortable in no apparent distress. HEAD: Normocephalic. EYES: Normal reaction of pupils, equal size. NOSE: Clear with pink turbinates. THROAT: No erythema or exudates. NECK: No masses, no JVD. CHEST: No chest wall deformity. LUNGS: Equal air entry with no crackles, wheeze, rhonchi or dullness. CVS: S1 and S2 normal with no audible murmur, regular rhythm. ABDOMEN: No hepatosplenomegaly, normal bowel sounds, no guarding or rigidity. SPINE: No scoliosis or deformity SKIN: No rashes CENTRAL NERVOUS SYSTEM: No focal deficits, tone is normal in all 4 extremities. EXTREMITIES: There is no peripheral edema. No clubbing, no cyanosis. Peripheral pulses are intact. - Labs CBC & Chem 7: 01/30/24 06:08 01/30/24 06:08 Assessment and Plan Assessment: New onset atrial fibrillation, rate controlled and currently on oral amiodarone. Transitioned from heparin to Eliquis Acute pulmonary embolism with a very questionable tiny filling defect in the left main pulmonary artery and segmental branches in the left upper lobe. Obviously, this is possible as the patient is his excellent clinical condition set up for venous thromboembolic disease including chronic debility, fall and back injury and T-spine fracture in addition to recent COVID-19 infection. She has not had any previous pulmonary embolism. Hemodynamically stable. No sig nificant hypoxemia. No RV strain pattern. Troponins are not elevated. No RV strain on echocardiogram. Mildly impaired left ventricular systolic function with ejection fraction 45 to 50% DVT of the left lower extremity secondary to above COVID-19 infection approximately 3 weeks ago and the patient is still positive T12 vertebral body burst fracture with secondary back pain Multilevel lumbar spondylosis along with lumbar degenerative disc disease Dementia Diabetes mellitus type 2 Hypertension Hyperlipidemia History of skin cancer Plan: The patient was seen and evaluated Medications reviewed Transitioned to Eliquis Stable and on room air Plan is to return to [facility] at discharge I have personally seen and examined the patient, performed the documentation and the assessment and plan as written. Number of minutes spent on the visit: 10 .
== END 2024-01-31 15:51 | disposition home health service (06) | DRG 308 ==
LOC: EC 10:11 → 3SCARD 14:03
PROVIDERS: ADMIT Family Medicine; ATTEND Family Medicine
DX: I48.91 Unspecified atrial fibrillation (principal); I26.99 Other pulmonary embolism without acute cor pulmonale; S22.081A Stable burst fracture of T11-T12 vertebra, initial encounter for closed fracture; I82.432 Acute embolism and thrombosis of left popliteal vein; G20.A1 Parkinson's disease without dyskinesia, without mention of fluctuations; F02.80 Dementia in other diseases classified elsewhere, unspecified severity, without behavioral disturbance, psychotic disturbance, mood disturbance, and anxiety; E11.9 Type 2 diabetes mellitus without complications; Z79.4 Long term (current) use of insulin; I10 Essential (primary) hypertension; M51.360 Other intervertebral disc degeneration, lumbar region with discogenic back pain only; M47.816 Spondylosis without myelopathy or radiculopathy, lumbar region; E78.5 Hyperlipidemia, unspecified; W19.XXXA Unspecified fall, initial encounter; Z91.81 History of falling; Z86.16 Personal history of COVID-19; Z86.73 Personal history of transient ischemic attack (TIA), and cerebral infarction without residual deficits; Z79.82 Long term (current) use of aspirin; Z79.899 Other long term (current) drug therapy; Z85.828 Personal history of other malignant neoplasm of skin
CPT/HCPCS: 36415; 70450; 71046; 71275; 80053; 81001; 83690; 83735; 83880; 84484; 85025; 85379; 85610; 85730; 87636; 93005; 93306; 93970; 96365; 96366; 96367; 96368; 96375; 96376; 99291